=== PATIENT | female | born 1935 | race Caucasian/White ===

== ENCOUNTER 2017-03-12 12:10 | Inpatient (IN) | payer MEDICARE, MEDICAID ==
[2017-03-12 12:22] VITALS: BMI 23.2
[2017-03-12] MEDS ORDERED: Levalbuterol 0.63 MG/3 ML Inhal Soln UD IH STA (12:34)
--- NOTE | 2017-03-12 12:38 | ED PDOC ---
Arrival/HPI - General Historian: Patient, Family - History of Present Illness Time/Duration: > week (over 3 weeks. ) Symptom Onset: Gradual Symptom Course: Worsening Context: Home - General Chief Complaint: Shortness Of Breath Time Seen by Provider: 03/12/17 12:19 - History of Present Illness Narrative History of Present Illness (Text): 03/12/17 12:36 Patient is a 81 y/o with PMH of IDDM2, COPD, dilated cardiomyopathy, h/o pneumonia, large hiatal hernia, GERD presenting with over 3 weeks of cough productive with yellow, now dark sputum. Patient states she saw Dr Desouza 3 times since the symptoms started, and she was prescribed antibiotic twice, last antibiotic was last Sunday, doesn't remember the name. Patient last Sunday she was also giving solumedrol shot and prescription for po prednisone. Patient was admitted last year November with similar symptoms and was treated with pneumonia. Patient admits to subjective fever, chills. Patient reports SOB when she coughs. Patient denies cp, denies n/v/d. Admits to sick contact, daughter has similar symptoms. (Victorina Rodrigues) Past Medical History - Provider Review Nursing Documentation Reviewed: Yes - Travel History Have you recently traveled outside [place] w/in the past 3 mons?: No - Infectious Disease Hx of Infectious Diseases: None - Tetanus Immunization Tetanus Immunization: Unknown - Reproductive Menopause: Yes - Cardiac Hx Hypertension: Yes - Pulmonary Hx Asthma: Yes - Neurological HX Cerebrovascular Accident: Yes - HEENT Hx HEENT Disorder: No - Renal Hx Renal Disorder: No - Endocrine/Metabolic Hx Diabetes Mellitus Type 2: Yes - Hematological/Oncological Hx Anemia: Yes - Integumentary Hx Dermatological Disorder: No - Musculoskeletal/Rheumatological Hx Arthritis: Yes - Gastrointestinal Hx Gastroesophageal Reflux: Yes - Genitourinary/Gynecological Hx Urinary Tract Infection: Yes - Psychiatric Hx Anxiety: Yes Hx Substance Use: No - Surgical History Hx Cardiac Catheterization: Yes Hx Coronary Stent: Yes Other/Comment: herniated disks - - Anesthesia Hx Anesthesia: Yes Hx Anesthesia Reactions: No Hx Malignant Hyperthermia: No - Suicidal Assessment Feels Threatened In Home Enviroment: No Family/Social History - Physician Review Nursing Documentation Reviewed: Yes Family/Social History: Hypertension, CAD/MO Smoking Status: Never Smoked Hx Alcohol Use: No Hx Substance Use: No Allergies/Home Meds Allergies/Adverse Reactions: Allergies No Known Allergies Allergy (Verified 03/12/17 12:22) Home Medications: Home Meds Medication Instructions Recorded Confirmed Adalimumab [Humira] 40 mg SC Q2W 03/12/17 03/12/17 Alprazolam [Xanax] 0.5 mg PO HS 03/12/17 03/12/17 Clotrimazole 1% Cream [Lotrimin 1%] 1 applic TOP DAILY 03/12/17 03/12/17 Diclofenac Sodium [Voltaren] 100 gm TP TID PRN 03/12/17 03/12/17 Fluticasone/Vilanterol [Breo 1 unit INH Q12 03/12/17 03/12/17 Ellipta 100-25 Mcg INH] Furosemide [Lasix] 20 mg PO DAILY 03/12/17 03/12/17 Leflunomide [Arava] 20 mg PO DAILY 03/12/17 03/12/17 Levalbuterol Tartrate [Xopenex Hfa] 1 unit INH DAILY PRN 03/12/17 03/12/17 Levocetirizine Dihydrochloride 5 mg PO DAILY 03/12/17 03/12/17 [Xyzal] Metformin HCl [Glucophage] 500 mg PO DAILY 03/12/17 03/12/17 Mirtazapine [Remeron] 15 mg PO DAILY 03/12/17 03/12/17 Multivitamin [Multi-Vitamin Daily] 1 tab PO DAILY 03/12/17 03/12/17 Omeprazole 20 mg PO DAILY 03/12/17 03/12/17 Prasugrel Hydrochloride [Effient] 5 mg PO DAILY 03/12/17 03/12/17 Review of Systems - Review of Systems Constitutional: Fatigue, Fevers. absent: Night Sweats Eyes: Normal ENT: Normal Respiratory: SOB, Cough, Sputum. absent: Wheezing Cardiovascular: Normal Gastrointestinal: Normal Genitourinary Female: Normal Musculoskeletal: Normal Skin: Normal Neurological: Headache. absent: Dizziness, Focal Weakness Endocrine: Normal Hemo/Lymphatic: Normal Psychiatric: Normal Physical Exam Blood Pressure: Normal Pulse: Tachycardic Respiratory Rate: Normal Appearance: Positive for: Well-Appearing, Non-Toxic. No: Comfortable Pain Distress: None Mental Status: Positive for: Alert and Oriented X 3 - Systems Exam Head: Present: Atraumatic, Normocephalic Extroacular Muscles: Present: EOMI Conjunctiva: No: Icteric Mouth: Present: Dry Neck: Present: Normal Range of Motion Respiratory/Chest: Present: Rales (left base. ). No: Respiratory Distress, Accessory Muscle Use, Wheezes, Rhonchi, Tachypneic Cardiovascular: Present: Regular Rate and Rhythm, Normal S1, S2, Tachycardic. No: Murmurs Abdomen: Present: Normal Bowel Sounds. No: Tenderness, Distention Upper Extremity: Present: Normal Inspection. No: Cyanosis, Edema Lower Extremity: Present: Normal Inspection. No: Edema Neurological: Present: GCS=15 Skin: Present: Warm, Dry, Rashes, Normal Color Psychiatric: Present: Alert, Oriented x 3, Normal Insight, Normal Concentration Vital Signs Temp Pulse Resp BP Pulse Ox 03/12/17 16:09 78 18 98 03/12/17 16:00 98.5 F 89 20 125/77 95 03/12/17 15:33 98.1 F 78 16 118/72 94 L 03/12/17 12:30 16 93 L 03/12/17 12:23 91 H 18 115/64 93 L 03/12/17 12:22 91 H 18 115/64 93 L Medical Decision Making Re-evaluation Time: 14:10 Reassessment Condition: Re-examined, Improving,but remains with symptoms - Lab Interpretations I have reviewed the lab results: Yes (wbc 11.7) - RAD Interpretation Airplane Cover Maker: ED Physician - EKG Interpretation Interpreted by ED Physician: Yes Type: 12 lead EKG ED Course and Treatment: Patient seen and examined with resident. Came up with treatment and disposition plan with resident. (Romero Bo) 03/12/17 12:48 81 y/o with pmh of copd, dilated cardiomyopathy, h/o pneumonia, IDDM presenting with cough productive with dark sputum for weeks, failed outpatient treatment. Differentials: CHF exacerbation, copd exacerbation, HAP, gerd. Plan: CBC, CMP, BNP, Troponin, ABG chest x-ray , ekg xoponex inhal, solumedrol [address] Bo. 03/12/17 14:08 Patient feeling better after xoponex and solumedrol treatment Patient with left lower lobe infiltration, and wbc of 11.7. gave Rocephin and zithromax. 03/12/17 14:[address] Desouza on the phone regarding patient, will admit patient into his service. (Victorina Rodrigues) - Lab Interpretations Lab Results: 03/12/17 12:56 Lab Results 03/12/17 12:56: WBC 11.7 H D, RBC 2.76 L, Hgb 8.7 L, Hct 26.0 L, MCV 94.2, MCH 31.5, MCHC 33.5, RDW 14.1, Plt Count 253, MPV 9.3, Gran % 85.9 H, Lymph % (Auto ) 5.0 L, [place] % (Auto) 9.1 H, Eos % (Auto) 0.0 L, Baso % (Auto) 0.0, Gran # 10.05 H, Lymph # 0.6 L, [place] # 1.1 H, Eos # 0.0, Baso # 0.00 03/12/17 12:32: pCO2 28 L, pO2 118.0 H, HCO3 19.9 L, ABG pH 7.46 H, ABG Total CO2 20.8 L, ABG O2 Saturation 98.7 H, ABG Base Excess -2.6 L, ABG Potassium 3.2 L, Sodium 136.0, Chloride 109.0 H, Glucose 146 H, Lactate 1.6, FiO2 45.0, Arterial Blood Potassium 3.2 L - RAD Interpretation Narrative RAD Interpretations (Text): 03/12/17 14:12 Left lower lobe infiltration. (Victorina Rodrigues) Radiology Orders: 03/12/17 12:34 CHEST TWO VIEWS (PA/LAT) [RAD] Stat - EKG Interpretation EKG Interpretation (Text): 03/12/17 13:28 NSR at HR of 86 BMP, occasional PVCs. (Victorina Rodrigues) - Medication Orders Current Medication Orders: Albuterol/Ipratropium (Duoneb 3 Mg/0.5 Mg (3 Ml) Ud) 3 ml IH [id number] [facility] Last Admin: 03/13/17 07:36 Dose: 3 ml Alprazolam (Xanax) 0.5 mg PO HS [facility] PRN Reason: Protocol Last Admin: 03/12/17 22:07 Dose: 0.5 mg Re-Assess: Reassess Psych Meds Document 03/12/17 23:07 RR (Rec: 03/12/17 23:45 RR [id number]) Reassess Psych Med Effective Azithromycin (Zithromax) 500 mg PO DAILY [facility] PRN Reason: Protocol Clotrimazole (Lotrimin 1%) 0 gm TOP DAILY [facility] Guaifenesin/Dextromethorphan (Robitussin Dm) 5 ml PO Q6 [facility] Last Admin: 03/13/17 06:12 Dose: 5 ml Cefepime HCl (Maxipime 2gm) 2 gm in 100 mls @ 100 mls/hr IVPB Q12 [facility] PRN Reason: Protocol Stop: 03/20/17 10:01 Insulin Human Regular (Humulin R Low) 0 units SC ACHS [facility] PRN Reason: Protocol Last Admin: 03/12/17 22:07 Dose: 4 units Insulin Human Regular (Humulin R Med) 0 units SC ACHS [facility] PRN Reason: Protocol Methylprednisolone (Solu-Medrol) 30 mg IVP Q8 [facility] Last Admin: 03/13/17 06:12 Dose: 30 mg Mirtazapine (Remeron) 15 mg PO DAILY [facility] Multivitamins (Thera Tab) 1 tab PO DAILY [facility] Pantoprazole Sodium (Protonix Ec Tab) 40 mg PO ACB [facility] Prasugrel (Effient) 5 mg PO DAILY [facility] Discontinued Medications Azithromycin (Zithromax) 100 mg PO STAT STA PRN Reason: Protocol Stop: 03/12/17 14:11 Last Admin: 03/12/17 19:49 Dose: Ceftriaxone Sodium (Rocephin 1 Gram Ivpb) 1 gm in 100 mls @ 200 mls/hr IVPB STAT STA PRN Reason: Protocol Stop: 03/12/17 14:39 Last Admin: 03/12/17 15:51 Dose: 200 mls/hr Levalbuterol HCl (Xopenex) 0.63 mg IH ONCE STA Stop: 03/12/17 12:35 Last Admin: 03/12/17 13:00 Dose: 0.63 mg Methylprednisolone (Solu-Medrol) 40 mg IVP STAT STA Stop: 03/12/17 12:44 Last Admin: 03/12/17 13:09 Dose: 40 mg Pneumococcal Polyvalent Vaccine (Pneumovax 23 Vaccine) 0.5 ml IM .ONCE ONE Stop: 03/12/17 23:14 Curb-65 Severity Score - CURB-65 Severity Score Confusion: No Bun >19mg/dl (>7mmol/L): Yes Respiratory Rate greater than/equal to 30: No Systolic BP <90 or Diastolic BP less than/equal 60mmHg: No Age >64: Yes Curb-65 Score: 2 Percentage 30-day mortality: 6.8% Disposition/Present on Arrival - Present on Arrival Any Indicators Present on Arrival: No History of DVT/PE: No History of Uncontrolled Diabetes: No Urinary Catheter: No History of Decub. Ulcer: No History Surgical Site Infection Following: None - Disposition Have Diagnosis and Disposition been Completed?: Yes Disposition Time: 14:15 Patient Plan: Admission - Disposition Diagnosis: HAP (hospital-acquired pneumonia), CHF exacerbation Disposition: HOSPITALIZED Patient Problems: Current Active Problems Problem Status Onset CHF exacerbation Acute HAP (hospital-acquired pneumonia) Acute Condition: STABLE
[2017-03-12] MEDS ORDERED: MethylPREDNISolone 40 mg Vial IVP STA (12:43)
[2017-03-12 13:04] LABS: ADD MANUAL DIFF? NO
[2017-03-12 13:07] LABS: ARTERIAL BLOOD GAS HCO3 19.9 mmol/L (21-28); ARTERIAL BLOOD GAS PH 7.46 (7.35-7.45)
[2017-03-12 13:14] LABS: GRAN # 10.05 (1.4-6.5); GRAN % 85.9 % (50.0-68.0); LYMPH # 0.6 (1.2-3.4); MEAN CELL VOLUME 94.2 fL (80.0-105.0); MEAN CORPUSCULAR HEMOGLOBIN 31.5 pg (25.0-35.0); MEAN CORPUSCULAR HGB CONC 33.5 g/dl (31.0-37.0); MEAN PLATELET VOLUME 9.3 fl (7.0-11.0); MONO # 1.1 (0.1-0.6); MONO % 9.1 % (1.0-6.0); PLATELET COUNT 253 10^3/uL (120.0-450.0); RED CELL DISTRIBUTION WIDTH 14.1 % (11.5-14.5); WHITE BLOOD COUNT 11.7 10^3/ul (4.5-11.0)
[2017-03-12] MEDS ORDERED: Azithromycin 100 mg/5 ml Susp (15 ml) PO STA (14:10)
[2017-03-12] MEDS ORDERED: cefTRIAXone 1 gm 1 GM/100 ML BAG IVPB STA (14:10)
[2017-03-12 14:35] LABS: ALB/GLOB RATIO 0.8 (1.1-1.8); ALKALINE PHOSPHATASE 70 U/L (38-133); ALT/SGPT 22 U/L (7-56); AST/SGOT 28 U/L (15-39); BILIRUBIN,TOTAL 0.5 mg/dL (0.2-1.3); BLOOD UREA NITROGEN 62 mg/dL (7-21); CALCIUM 8.1 mg/dL (8.4-10.5); CARBON DIOXIDE 21 mmol/L (21-33); CHLORIDE 105 mmol/L (98-107); GFR AFRICAN-AMERICAN 52; GLUCOSE,RANDOM 132 mg/dL (70-110); POTASSIUM 3.6 mmol/L (3.6-5.0); SODIUM 133 mmol/L (132-148); TOTAL PROTEIN 6.7 g/dL (5.8-8.3)
[2017-03-12 14:47] LABS: TROPONIN I < 0.01 ng/mL
--- NOTE | 2017-03-12 18:47 | RAD ---
HISTORY: cough COMPARISON: Chest x-ray performed 12/14/15 TECHNIQUE: Chest PA and lateral FINDINGS: Examination limited by habitus and hypoinflation. LUNGS: Left lower lobe atelectasis or pneumonia. Please note that chest x-ray has limited sensitivity for the detection of pulmonary masses. PLEURA: No significant pleural effusion identified. No definite pneumothorax . CARDIOVASCULAR: Heart size appears within normal limits. OSSEOUS STRUCTURES: Osseous demineralization. Degenerative changes. VISUALIZED UPPER ABDOMEN: Unremarkable. OTHER FINDINGS: Probable hiatal hernia. IMPRESSION: Left lower lobe atelectasis or pneumonia.
[2017-03-12] MEDS: Albuterol-Ipratrop 3 mg / 0.5 (3 ml) UD IH SCH (19:35)
[2017-03-12] MEDS: MethylPREDNISolone 40 mg Vial IVP SCH (22:06)
[2017-03-12] MEDS: Insulin Reg-LOW-Coverage SC SCH (22:07)
[2017-03-12] MEDS ORDERED: Pneumococcal 23-Valent Vaccine IM ONE (23:13)
[2017-03-13] MEDS: Albuterol-Ipratrop 3 mg / 0.5 (3 ml) UD IH SCH ×4 (02:33→21:21)
[2017-03-13] MEDS: guaiFENesin DM 100 mg-10 mg/5 ml UD PO SCH ×5 (03:17→23:24)
[2017-03-13] MEDS: MethylPREDNISolone 40 mg Vial IVP SCH ×2 (06:12→22:12)
[2017-03-13 07:37] LABS: PH,URINE 5.5 (4.7-8.0); URINE BILIRUBIN NEGATIVE (NEGATIVE); URINE BLOOD NEGATIVE (NEGATIVE); URINE GLUCOSE (UA) NEGATIVE (NEGATIVE); URINE KETONE NEGATIVE (NEGATIVE); URINE LEUKOCYTE ESTERASE SMALL Leu/uL (NEGATIVE); URINE PROTEIN TRACE mg/dL (<30 mg/dL); URINE UROBILINOGEN 0.2 E.U./dL (<1 E.U./dL)
[2017-03-13 07:55] LABS: URINE APPEARANCE SL CLOUDY (CLEAR); URINE COLOR YELLOW (YELLOW)
[2017-03-13 07:56] LABS: URINE BACTERIA MOD (NEG); URINE RBC 0 - 2 /hpf (0-2)
[2017-03-13] MEDS ORDERED: Non Formulary Medication (Omeprazole [Omeprazole] 20 MG) PO SCH (10:00)
[2017-03-13] MEDS ORDERED: MULTIVITAMIN PO SCH (10:00)
[2017-03-13] MEDS ORDERED: cefTRIAXone 1 gm 1 GM/100 ML BAG IVPB SCH (10:00)
[2017-03-13] MEDS: Insulin Reg-LOW-Coverage SC SCH ×4 (11:30→22:07)
[2017-03-13] MEDS: Insulin Reg-MEDIUM-Coverage SC SCH ×3 (12:51→22:07)
[2017-03-13] MEDS: Multivitamin Therapeutic Tab PO SCH (13:00)
[2017-03-13] MEDS: Pantoprazole 40 mg EC Tab PO SCH (13:01)
--- NOTE | 2017-03-13 14:01 | HP ---
HISTORY OF PRESENT ILLNESS: A 81-year-old female with history of rheumatoid arthritis, dege nerative joint disease, peripheral vascular disease, CAD status post open heart surgery. The patient is status post stents and peripheral stents. The patient also has history of chronic lung disease. She has had outpatient cough and sputum production for the last 2 weeks progressing to increasing sh ortness of breath and low grade fevers and sputum production. The patient came to the hospital and w as found to have pneumonia. She also has chronic rhonchi and rales at both bases. Also has had a BN P of over 2000 consistent with mild congestive heart failure. Her vital signs are stable. She does have a hemoglobin of 8.7. She has been on biologicals for her ____, possibly contributing to her ane tenzin and immunosuppression. She also an elevated BUN and creatinine of 62 and 1.2. PHYSICAL EXAMINATION: GENERAL: On examination at this point, she is without complaints except for cough. She slept well. She has been tolerating her diet well. CHEST: Shows rhonchi and rales at both bases. ABDOMEN: Benign. EXTREMITIES: No cyanosis, clubbing, edema. NEUROLOGIC: Grossly intact. IMPRESSION: A 81-year-old female presenting with pneumonia, on immunosuppressive drugs; con gestive heart failure, acute renal insufficiency, possible dehydration and anemia of unknown origin. Juan Desouza MD cc: [id number] TT: 03/13/2017 14:01:08 sn
[2017-03-13] MEDS: Cefepime IV 2 gm in NS 2 GM/100 ML BAG IVPB SCH ×2 (15:09→22:06)
--- NOTE | 2017-03-13 15:26 | US ---
PROCEDURE: Ultrasound of the Kidneys HISTORY: arf COMPARISON: None available. TECHNIQUE: Sonogram of the kidneys. FINDINGS: RIGHT KIDNEY: Measures: 9.5 cm. Normal in size, contour and echogenicity. No stone, solid mass lesion or hydronephrosis visualized. LEFT KIDNEY: Measures: 8.3 cm. Normal in size, contour and echogenicity. No stone, solid mass lesion or hydronephrosis visualized. OTHER FINDINGS: None. IMPRESSION: Unremarkable renal sonogram.
--- NOTE | 2017-03-13 17:48 | CARD ---
APPROVED REPORT EKG Measurement Heart [id number] [id number] <Conclusion> Sinus rhythm with occasional premature ventricular complexes Otherwise normal ECG
--- NOTE | 2017-03-13 18:13 | US ---
PROCEDURE: Bilateral renal artery duplex ultrasound. CLINICAL HISTORY: Renal artery stenosis. Uncontrolled hypertension. Evaluate for renovascular hypertension. PHYSICIAN(S): Dominic Ingram M.D. TECHNIQUE: Duplex sonography with color-flow Doppler was used to evaluate the visualized segments of the main renal arteries. The patient was evaluated in a fasting state. Imaging in a supine and decubitus position was performed. Limited evaluation of the arcuate waveforms and resistive indices were performed. FINDINGS: Study is limited by tortuous vessels and the patient's inability to hold her breath. The kidneys are symmetric in size and location. Renal parenchyma is somewhat echogenic with prominent sinus fat. The right kidney measures 9.4cm in length and the left kidney measures 8.6cm in length. No solid renal masses, abnormal calcifications, or hydronephrosis is seen. The main right renal artery is visualized in segments from the aorta to the hilum.. The peak systolic velocity in the right main renal artery is 105 cm/sec. This is consistent with a 0 to 49% stenosis in the main right renal artery. The arcuate waveforms are normal. The resistive index is normal. The main left renal artery is also only visualized in segments from the aorta to the hilum.. The peak systolic velocity in the main left renal artery is 98cm/sec. This corresponds to a 0 to 49% stenosis in the main left renal artery. The arcuate waveforms and resistive indices are normal. IMPRESSION: 1. The main renal arteries are poorly visualized due to tortuosity and the patient's inability to hold her breath. If clinical suspicion for renal artery stenosis is high, additional imaging with CTA, MRA, or conventional arteriogram can be considered. 2. No sonographically significant stenosis is identified. 3. The kidneys are normal and symmetric in size. Renal parenchyma is somewhat echogenic with prominent sinus fat. There are no solid renal masses, abnormal calcifications or hydronephrosis noted.
--- NOTE | 2017-03-13 18:22 | CP.PCM.CON ---
History of Present Illness - History of Present Illness History of Present Illness: 81 year old female with COPD, DM, dilated cardiomyopathy, history of pneumonia, GERD, hiatal hernia, was sent to [facility] because of cough productive of yellowish phlegm over the past 2 weeks. She was seen by her PMD last week and was given unrecalled antibiotics. She was also given some steroids which made her feel better for a little while and then she started coughing again. She has mild shortness of breath on exertion, no fever or chills , on headache or dizziness, no chest pain, no sore throat, no rhinorrhea, no dysphagia, no abdominal pain, no diarrhea, no dysuria. In the ED, CXR showed left lower lobe atelectasis versus pneumonia. Infectious diseases consult is requested to further evaluate and manage. Review of Systems - Review of Systems All systems: reviewed and no additional remarkable complaints except (as per HPI ) Past Patient History - Infectious Disease Hx of Infectious Diseases: None - Tetanus Immunizations Tetanus Immunization: Unknown - Past Social History Smoking Status: Never Smoked - CARDIAC Hx Hypercholesterolemia: Yes Hx Hypertension: Yes Hx Peripheral Edema: Yes (right knee, +1 ble) - PULMONARY Hx Asthma: Yes Hx Pneumonia: Yes - NEUROLOGICAL HX Cerebrovascular Accident: Yes Hx Dizziness: Yes - HEENT Hx HEENT Problems: Yes (eyeglasses) - RENAL Hx Chronic Kidney Disease: No - ENDOCRINE/METABOLIC Hx Diabetes Mellitus Type 2: Yes - HEMATOLOGICAL/ONCOLOGICAL Hx Anemia: Yes - INTEGUMENTARY Hx Dermatological Problems: Yes Other/Comment: multiple skin discolorations ble - MUSCULOSKELETAL/RHEUMATOLOGICAL Hx Arthritis: Yes (hands) Hx Falls: Yes (past) Hx Herniated Disk: Yes () - GASTROINTESTINAL Hx Gastrointestinal Disorders: Yes (hiatal hernia) Hx Gastroesophageal Reflux: Yes - GENITOURINARY/GYNECOLOGICAL Hx Urinary Tract Infection: Yes - PSYCHIATRIC Hx Anxiety: Yes - SURGICAL HISTORY Hx Cardiac Catheterization: Yes Hx Coronary Stent: Yes Other/Comment: herniated disks - - ANESTHESIA Hx Anesthesia: Yes Hx Anesthesia Reactions: No Hx Malignant Hyperthermia: No Meds Allergies/Adverse Reactions: Allergies Allergy/AdvReac Type Severity Reaction Status Date / Time No Known Allergies Allergy Verified 03/12/17 12:22 - Medications Medications: Current Medications Albuterol/Ipratropium (Duoneb 3 Mg/0.5 Mg (3 Ml) Ud) 3 ml IH [id number] [facility] Last Admin: 03/13/17 02:33 Dose: 3 ml Alprazolam (Xanax) 0.5 mg PO HS ABNER PRN Reason: Protocol Last Admin: 03/12/17 22:07 Dose: 0.5 mg Azithromycin (Zithromax) 500 mg PO DAILY [facility]NER PRN Reason: Protocol Clotrimazole (Lotrimin 1%) 0 gm TOP DAILY [facility] Guaifenesin/Dextromethorphan (Robitussin Dm) 5 ml PO Q6 [facility] Last Admin: 03/13/17 03:17 Dose: Not Given Ceftriaxone Sodium (Rocephin 1 Gram Ivpb) 1 gm in 100 mls @ 100 mls/hr IVPB DAILY [facility] PRN Reason: Protocol Insulin Human Regular (Humulin R Low) 0 units SC ACHS [facility] PRN Reason: Protocol Last Admin: 03/12/17 22:07 Dose: 4 units Methylprednisolone (Solu-Medrol) 30 mg IVP Q8 [facility] Last Admin: 03/12/17 22:06 Dose: 30 mg Mirtazapine (Remeron) 15 mg PO DAILY [facility] Multivitamins (Thera Tab) 1 tab PO DAILY [facility] Pantoprazole Sodium (Protonix Ec Tab) 40 mg PO ACB [facility] Prasugrel (Effient) 5 mg PO DAILY [facility] Physical Exam - Constitutional Appears: Non-toxic, No Acute Distress - Head Exam Head Exam: NORMAL INSPECTION - ENT Exam ENT Exam: Mucous Membranes Moist - Neck Exam Neck exam: Negative for: Lymphadenopathy, Meningismus - Respiratory Exam Respiratory Exam: Decreased Breath Sounds - Cardiovascular Exam Cardiovascular Exam: +S1, +S2 - GI/Abdominal Exam GI & Abdominal Exam: Soft. absent: Tenderness Results - Vital Signs Recent Vital Signs: Last Vital Signs Temp 98.5 F 03/12/17 22:56 Pulse 89 03/12/17 22:56 Resp 20 03/12/17 22:56 BP 125/77 03/12/17 22:56 Pulse Ox 98 03/12/17 16:09 - Labs Result Diagrams: 03/12/17 12:56 03/12/17 14:23 Labs: Laboratory Results - last 24 hr 03/12/17 03/12/17 03/12/17 14:23 17:37 21:44 Sodium 133 Potassium 3.6 Chloride 105 Carbon Dioxide 21 Anion Gap 11 BUN 62 H Creatinine 1.2 Est GFR ( Amer) 52 Est GFR (Non-Af Amer) 43 POC Glucose (mg/dL) 269 H 421 H* Random Glucose 132 H Calcium 8.1 L Total Bilirubin 0.5 AST 28 ALT 22 Alkaline Phosphatase 70 Troponin I < 0.01 NT-Pro-B Natriuret Pep 2080 H Total Protein 6.7 Albumin 2.9 L Globulin 3.8 Albumin/Globulin Ratio 0.8 L Assessment & Plan - Assessment and Plan (Free Text) Plan: Assessment systemic inflammatory response syndrome, R/O healthcare-associated pneumonia ( patient has been given antibiotics last week) COPD DM dilated cardiomyopathy history of pneumonia GERD hiatal hernia Plan Started patient on Cefepime and Zithromax pending blood, sputum cx, PCT and monitor clinical response follow up Pulmonary evaluation and recommendations
--- NOTE | 2017-03-13 19:58 | CON ---
DATE: 03/13/2017 REQUESTING PHYSICIAN: Dr. Desouza. CHIEF COMPLAINT: The patient presents with shortness of breath and cough and chest congestion. HISTORY OF PRESENT ILLNESS: The patient is a 81-year-old female with a history of COPD/bronchitis, d iabetes, cardiomyopathy, hiatal hernia, GERD and anemia. The patient states that she has had a cough for about 2-3 weeks and it was treated with antibiotics and cough meds by the PMD, but it never comp letely resolved. She has a history of recurrent bronchitis for many years. The patient at this time has no fever or chills. No nausea, vomiting, but not much of an appetite. She has the cough with t he phlegm and the shortness of breath when she has the cough spasms. No chest pain, no abdominal ashwini n, no diarrhea. PAST MEDICAL HISTORY: As above. ALLERGIES: She has no known allergies. CURRENT MEDICATIONS: Can be evaluated as per the nurse's intake form. SOCIAL HISTORY: She is a former smoker. No EtOH abuse. No drug abuse. FAMILY HISTORY: Noncontributory. REVIEW OF SYSTEMS: CONSTITUTIONAL: The patient does have some fatigue, but no present fever. HEENT: Within normal limits. RESPIRATORY: Shortness of breath, cough, sputum. CARDIOVASCULAR: All normal. GASTROINTESTINAL: All normal. GENITOURINARY: All normal. MUSCULOSKELETAL: All normal. NEUROPSYCHIATRIC: All normal. INTEGRITY: All normal. ENDOCRINE: All normal. HEMATOLOGIC: All normal. IMMUNOLOGIC: All normal. PHYSICAL EXAMINATION: VITAL SIGNS: Note that her temperature is 97.9, her pulse is 77, respirations are 18, and BP is 136/ 74. O2 saturation is 96 on room air. HEAD: Atraumatic, normocephalic. EYES: Reactive to light. EARS, NOSE AND THROAT: Seem to be within normal limits. NECK: Supple, no JVD, no thyroid enlargement, no lymph nodes. HEART: Has a regular rate and rhythm. Normal S1, S2. LUNGS: Reveal bilateral lower lobe rhonchi, more so on the left than the right. No expiratory wheez ing. ABDOMEN: Soft, nontender, normal bowel sounds. No organomegaly noted. GENITALIA AND RECTAL: Deferred. MUSCULOSKELETAL: No joint deformities. EXTREMITIES: Reveal no edema. NEUROLOGIC: She seemed to be grossly intact. LABORATORY DATA: Her white count is 11.7, hemoglobin is 8.7, hematocrit 26.0 with platelets of 253,0 00. Arterial blood gas reveals a pH of 7.46, pCO2 of 28, pO2 of 118. Her sodium is 133, potassium 3 .6, chloride 105, CO2 of 21 with a BUN of 62, creatinine of 1.2, and a glucose of 296. Note that her BNP is 2080. IMAGING: Her chest x-ray reveals a left lower lobe pneumonia. IMPRESSION: This patient has left lower lobe pneumonia with exacerbation of her chronic obstructive pulmonary disease. There may be a mild component of congestive heart failure with increased BNP. Th e patient has a history of diabetes, cardiomyopathy, hiatal hernia, GERD as well as anemia. PLAN: We will continue with DuoNeb as a bronchodilator. The patient is getting cefepime as an IV an tibiotic and is on Protonix as well. She is getting Solu-Medrol 30 mg q. 8 and is on Zithromax as we ll. We will continue with aggressive pulmonary toilet, continue with the cough meds and O2 via nasal cannula p.r.n. and continue to treat aggressively along with the other consultants and the primary c are doctor. Parrish Huynh MD cc: [id number] TT: 03/13/2017 19:58:14 Confirmation # [id number] Dictation # [id number] mn
[2017-03-13] MEDS: Clotrimazole 1% Cream(30 gm) TOP SCH (22:11)
[2017-03-14] MEDS: Albuterol-Ipratrop 3 mg / 0.5 (3 ml) UD IH SCH ×4 (02:00→19:42)
[2017-03-14] MEDS: guaiFENesin DM 100 mg-10 mg/5 ml UD PO SCH ×3 (05:40→17:11)
[2017-03-14 07:34] LABS: HEMATOCRIT 25.2 % (36.0-48.0); MEAN CELL VOLUME 94.4 fL (80.0-105.0); MEAN CORPUSCULAR HEMOGLOBIN 30.7 pg (25.0-35.0); MEAN CORPUSCULAR HGB CONC 32.5 g/dl (31.0-37.0); MEAN PLATELET VOLUME 9.1 fl (7.0-11.0); RED CELL DISTRIBUTION WIDTH 14.3 % (11.5-14.5); WHITE BLOOD COUNT 9.1 10^3/ul (4.5-11.0)
[2017-03-14 08:16] LABS: ALB/GLOB RATIO 0.8 (1.1-1.8); BILIRUBIN,TOTAL 0.4 mg/dL (0.2-1.3); CALCIUM 8.3 mg/dL (8.4-10.5); POTASSIUM 3.8 mmol/L (3.6-5.0); TOTAL PROTEIN 6.2 g/dL (5.8-8.3)
[2017-03-14] MEDS: Insulin Reg-MEDIUM-Coverage SC SCH ×4 (08:28→22:14)
[2017-03-14] MEDS: Pantoprazole 40 mg EC Tab PO SCH (08:30)
[2017-03-14] MEDS ORDERED: DAPTOmycin 500 mg Inj (Cubicin) IV SCH (08:45)
--- NOTE | 2017-03-14 09:02 | PN ---
DATE: 03/14/2017 A 81-year-old female with history of rheumatoid arthritis, peripheral vascular disease, CAD, hypertension, presented with bilateral pneumonia. The patient is improving. Her lung curiel are cl earing. She still has some rales at the left base, but the right is clear today. She did have a singh al ultrasound and a renal artery Doppler because of elevated BUN and creatinine which showed slightly decreased size of the kidneys, some echogenic abnormalities, but with no renal artery stenosis. We will repeat CBC and CMP. Continue IV antibiotics and bronchodilators. Juan Desouza MD cc: [id number] TT: 03/14/2017 09:02:03 Confirmation # [id number] Dictation # [id number]
[2017-03-14] MEDS: Cefepime IV 2 gm in NS 2 GM/100 ML BAG IVPB SCH ×2 (09:16→22:16)
[2017-03-14] MEDS: MethylPREDNISolone 40 mg Vial IVP SCH ×2 (09:27→22:12)
[2017-03-14] MEDS: Multivitamin Therapeutic Tab PO SCH (09:27)
[2017-03-14] MEDS: Clotrimazole 1% Cream(30 gm) TOP SCH (10:46)
--- NOTE | 2017-03-14 11:51 | PQF CHF ---
This form is a permanent part of the medical record Clarification of your documentation is requested to better reflect the severity of illness and intensity of treatment of your patient. Indicators present Hx, CHF, BNP- 2079. Pul noted mild component of CHF. Please document type & severity of CHF POA. [x] Diagnosis of CHF and/or history of CHF [x] BNP > 200 [] Imaging Finding of Pulmonary Edema /Pleural Effusions [] Fluid/Volume Overload [] Pitting edema [] Ejection Fraction < 40% (Indicative of Systolic Heart Failure) [] Ejection Fraction > 40% (Indicative of Diastolic Heart Failure) [] Dyspnea / Orthopenea / Paroxysmal Nocturnal Dyspnea [] Other: Location in the medical record that reflects the above clinical findings: [x] H& P, Pul consult Treatment Provided: [] PHYSICIAN'S RESPONSE Based on your medical judgment of the clinical indicators outlined above, are you treating this patient for a known or suspected: [] Acute CHF [] Systolic [] Diastolic [] Combined x] Chronic CHF [] Systolic [] Diastolic [x] Combined [] Acute on Chronic CHF []Systolic [] Diastolic [] Combined [] CHF due hypertension [] Acute systolic []Chronic systolic [] Acute/ chronic systolic [] Other, please indicate: [] [] If Unable to Determine, please check the box, sign and date. Present On Admission (POA) Indicator: [x] Present at the time of admission [] Not present at the time of admission [] Clinically Undetermined In responding to this query, please exercise your independent professional judgment. The fact that a question is asked does not imply that any particular answer is desired or expected. Thank you for your clarification on this documentation. If you have any questions please call:[ ] [phone] * Thank you, [ ] Bindu Yung RN [employer] manager [employer]
--- NOTE | 2017-03-14 18:17 | CP.PCM.PN ---
Subjective - Date & Time of Evaluation Date of Evaluation: 03/14/17 Time of Evaluation: 10:45 - Subjective Subjective: Cough is better, no fevers overnight, breathing better. Objective - Vital Signs/Intake and Output Vital Signs (last 24 hours): Temp Pulse Resp BP Pulse Ox 98.4 F 80 18 143/84 96 03/13/17 16:00 03/13/17 16:00 03/13/17 16:00 03/13/17 16:00 03/13/17 16:00 Intake and Output: 03/14/17 03/14/17 06:59 18:59 Intake Total 540 Output Total 300 Balance 240 - Medications Medications: Current Medications Albuterol/Ipratropium (Duoneb 3 Mg/0.5 Mg (3 Ml) Ud) 3 ml IH [id number] ABNER Last Admin: 03/14/17 07:48 Dose: 3 ml Alprazolam (Xanax) 0.5 mg PO HS ABNER PRN Reason: Protocol Last Admin: 03/13/17 22:13 Dose: 0.5 mg Clotrimazole (Lotrimin 1%) 0 gm TOP DAILY ABNER Last Admin: 03/13/17 22:11 Dose: 1 applic Daptomycin (Cubicin) 310 mg 6 mg/kg (310 mg) IV Q24H ABNER PRN Reason: Protocol Stop: 03/19/17 08:46 Guaifenesin/Dextromethorphan (Robitussin Dm) 5 ml PO Q6 ABNER Last Admin: 03/14/17 05:40 Dose: 5 ml Cefepime HCl (Maxipime 2gm) 2 gm in 100 mls @ 100 mls/hr IVPB Q12 ABNER PRN Reason: Protocol Stop: 03/20/17 10:01 Last Admin: 03/13/17 22:06 Dose: 100 mls/hr Doxycycline Hyclate 100 mg/ (Sodium Chloride) 100 mls @ 100 mls/hr IVPB Q12 ABNER PRN Reason: Protocol Insulin Human Regular (Humulin R Med) 0 units SC ACHS ABNER PRN Reason: Protocol Last Admin: 03/14/17 08:28 Dose: 5 units Methylprednisolone (Solu-Medrol) 30 mg IVP Q12 ABNER Last Admin: 03/13/17 22:12 Dose: 30 mg Mirtazapine (Remeron) 15 mg PO DAILY [facility]NER Last Admin: 03/13/17 16:11 Dose: 15 mg Multivitamins (Thera Tab) 1 tab PO DAILY [facility] Last Admin: 03/13/17 13:00 Dose: 1 tab Pantoprazole Sodium (Protonix Ec Tab) 40 mg PO ACB [facility] Last Admin: 03/14/17 08:30 Dose: 40 mg Prasugrel (Effient) 5 mg PO DAILY [facility] Last Admin: 03/13/17 15:58 Dose: 5 mg - Labs Labs: 03/14/17 06:50 03/14/17 06:50 - Constitutional Appears: Non-toxic, No Acute Distress - Head Exam Head Exam: NORMAL INSPECTION - Neck Exam Neck Exam: absent: Meningismus - Respiratory Exam Respiratory Exam: Decreased Breath Sounds - Cardiovascular Exam Cardiovascular Exam: +S1, +S2 - GI/Abdominal Exam GI & Abdominal Exam: Soft. absent: Tenderness Assessment and Plan - Assessment and Plan (Free Text) Plan: Assessment sepsis due to Staph aureus bacteremia, source to be determined; patient has left lower lobe healthcare-associated pneumonia (patient has been given antibiotics last week) COPD DM dilated cardiomyopathy history of pneumonia GERD hiatal hernia Plan continue Cefepime and doxycycline day 2 and started Daptomycin pending sensitivities of the staph aureus in the blood; check repeat blood cx and 2D echo will continue to monitor clinically
[2017-03-15] MEDS: Albuterol-Ipratrop 3 mg / 0.5 (3 ml) UD IH SCH ×4 (02:25→21:05)
[2017-03-15] MEDS: guaiFENesin DM 100 mg-10 mg/5 ml UD PO SCH ×4 (06:09→17:58)
--- NOTE | 2017-03-15 08:49 | PN ---
DATE: 03/15/2017 The patient is a 81-year-old female with history of rheumatoid arthritis, peripheral vascula r disease, CAD, admitted to the hospital with pneumonia. Also was admitted with azotemia, BUN and cr eatinine at approximately 64 and 1.2 range, up to 68 and 1.4 today. Also, she is mildly anemic at 8. 2; she was 8.4. She had been on biologicals for her rheumatoid arthritis; they have been discontinue d. The patient has been hydrated. She is tolerating her antibiotics well. PHYSICAL EXAMINATION: VITAL SIGNS: Stable. LUNGS: She has less cough but she still has some rales at the left base, but the right lung is clear . We are looking for a serum protein electrophoresis to rule out myeloma because of the kidney deterior ation and the anemia. Ultrasound of the kidneys and renal artery Doppler or both within normal limit s. IMPRESSION: Pneumonia, anemia, acute renal insufficiency in a 81-year-old white female with a long h istory of rheumatoid arthritis and other comorbid medical issues. Juan Desouza MD cc: [phone] TT: 03/15/2017 08:48:21 Confirmation # [id number] Dictation # [id number] juan carlos
[2017-03-15] MEDS: Insulin Reg-MEDIUM-Coverage SC SCH ×4 (08:52→21:20)
[2017-03-15] MEDS: Pantoprazole 40 mg EC Tab PO SCH (08:53)
[2017-03-15] MEDS: MethylPREDNISolone 40 mg Vial IVP SCH ×2 (11:27→21:17)
[2017-03-15] MEDS: Cefepime IV 2 gm in NS 2 GM/100 ML BAG IVPB SCH (11:27)
[2017-03-15] MEDS: Multivitamin Therapeutic Tab PO SCH (11:27)
[2017-03-15] MEDS: Clotrimazole 1% Cream(30 gm) TOP SCH (11:28)
[2017-03-15 13:13] LABS: HEMATOCRIT 30.6 % (36.0-48.0); MEAN CELL VOLUME 95.9 fL (80.0-105.0); MEAN CORPUSCULAR HEMOGLOBIN 31.7 pg (25.0-35.0); MEAN PLATELET VOLUME 8.8 fl (7.0-11.0); RED CELL DISTRIBUTION WIDTH 14.5 % (11.5-14.5); WHITE BLOOD COUNT 11.9 10^3/ul (4.5-11.0)
[2017-03-15 13:20] LABS: ALB/GLOB RATIO 0.8 (1.1-1.8); BILIRUBIN,TOTAL 0.6 mg/dL (0.2-1.3); CALCIUM 9.2 mg/dL (8.4-10.5); POTASSIUM 3.7 mmol/L (3.6-5.0); TOTAL PROTEIN 7.3 g/dL (5.8-8.3)
--- NOTE | 2017-03-15 13:31 | PN ---
DATE: 03/15/2017 SUBJECTIVE: The patient is resting, sitting on the side of the bed with O2 via nasal cannula. No co mplaints of increased shortness of breath, cough, wheezing, chest congestion. No chest pain. No fev er, chills, nausea or vomiting. No abdominal pain or diarrhea. Family members are at bedside, state that the patient is doing much better from a respiratory standpoint. PHYSICAL EXAMINATION: VITAL SIGNS: Note that her temperature is 98.1, her pulse is 78, respirations are 18, and BP is 160 /84. SKIN: Warm and dry. HEAD: Atraumatic, normocephalic. EYES: Reactive to light. EARS, NOSE AND THROAT: Seem to be within normal limits. NECK: Supple. No JVD, no thyroid enlargement, no lymph nodes. HEART: Has a regular rate and rhythm, normal S1, S2. LUNGS: Reveal good breath sounds bilaterally. ABDOMEN: Soft, nontender. Normal bowel sounds. No organomegaly noted. GENITALIA AND RECTAL: Deferred. MUSCULOSKELETAL: No joint deformities. EXTREMITIES: Reveal no significant lower extremity edema. NEUROLOGIC: She seemed to be grossly intact. IMPRESSION: The patient has resolving left lower lobe pneumonia with a history of chronic obstructiv e pulmonary disease. The patient has also resolved congestive heart failure and a history of diabete s, cardiomyopathy, hiatal hernia, gastroesophageal reflux disease as well as anemia and some renal in sufficiency. PLAN: We will continue with DuoNeb and patient is getting IV antibiotic. She is getting aggressive pulmonary toilet, O2 support via nasal cannula on a p.r.n. basis. We will continue to treat xiang hinson along with the other consultants and the primary care doctor. Parrish Huynh MD cc: [id number] TT: 03/15/2017 13:30:53 Confirmation # [id number] Dictation # [id number] tn
--- NOTE | 2017-03-15 13:50 | CP.PCM.PN ---
Subjective - Date & Time of Evaluation Date of Evaluation: 03/15/17 Time of Evaluation: 12:00 - Subjective Subjective: Pt has very poor veins,needs iv access Objective - Vital Signs/Intake and Output Vital Signs (last 24 hours): Temp Pulse Resp BP Pulse Ox 98.1 F 78 18 160/84 H 97 03/15/17 08:59 03/15/17 08:59 03/15/17 08:59 03/15/17 08:59 03/15/17 08:59 Intake and Output: 03/15/17 03/15/17 06:59 18:59 Intake Total 1160 240 Output Total 600 Balance 560 240 - Medications Medications: Current Medications Albuterol/Ipratropium (Duoneb 3 Mg/0.5 Mg (3 Ml) Ud) 3 ml IH [id number] ABNER Last Admin: 03/15/17 08:33 Dose: 3 ml Alprazolam (Xanax) 0.5 mg PO HS ABNER PRN Reason: Protocol Last Admin: 03/14/17 22:11 Dose: 0.5 mg Alprazolam (Xanax) 0.5 mg PO TID PRN; Protocol PRN Reason: Anxiety Last Admin: 03/15/17 11:55 Dose: 0.5 mg Clotrimazole (Lotrimin 1%) 0 gm TOP DAILY ABNER Last Admin: 03/15/17 11:28 Dose: 1 applic Guaifenesin/Dextromethorphan (Robitussin Dm) 5 ml PO Q6 ABNER Last Admin: 03/15/17 11:27 Dose: 5 ml Cefepime HCl (Maxipime 2gm) 2 gm in 100 mls @ 100 mls/hr IVPB Q12 [facility]NER PRN Reason: Protocol Stop: 03/20/17 10:01 Last Admin: 03/15/17 11:27 Dose: 100 mls/hr Doxycycline Hyclate 100 mg/ (Sodium Chloride) 100 mls @ 100 mls/hr IVPB Q12 ABNER PRN Reason: Protocol Last Admin: 03/15/17 11:28 Dose: 100 mls/hr Daptomycin 310 mg/ Sodium (Chloride) 100 mls @ 200 mls/hr IV Q24H ABNER Stop: 03/19/17 08:46 Last Admin: 03/15/17 09:30 Dose: 200 mls/hr Insulin Human Regular (Humulin R Med) 0 units SC ACHS [facility] PRN Reason: Protocol Last Admin: 03/15/17 11:55 Dose: 7 units Methylprednisolone (Solu-Medrol) 30 mg IVP Q12 [facility] Last Admin: 03/15/17 11:27 Dose: 30 mg Mirtazapine (Remeron) 15 mg PO DAILY [facility] Last Admin: 03/15/17 11:27 Dose: 15 mg Multivitamins (Thera Tab) 1 tab PO DAILY [facility] Last Admin: 03/15/17 11:27 Dose: 1 tab Pantoprazole Sodium (Protonix Ec Tab) 40 mg PO ACB [facility] Last Admin: 03/15/17 08:53 Dose: 40 mg Prasugrel (Effient) 5 mg PO DAILY [facility] Last Admin: 03/15/17 11:27 Dose: 5 mg - Labs Labs: 03/15/17 12:45 03/15/17 12:45 - Constitutional Appears: No Acute Distress Assessment and Plan - Assessment and Plan (Free Text) Assessment: Poor venous access Plan: Hep lock inserted in the R hand. # 24 angiocath used. Note:Pt did not want me to insert a line in her neck.She may need a Picc line or TLC.
--- NOTE | 2017-03-15 15:18 | PN ---
DATE: 03/15/2017 The patient seen earlier today in room 372, bed 2. The patient is awake and doing well. No fevers, no chills, no nausea. PHYSICAL EXAMINATION: VITAL SIGNS: Temperature is 98, blood pressure is 150/80, respiratory rate of 18, heart rate of 87. HEENT: Unremarkable. NECK: Supple. LUNGS: Decreased breath sounds. HEART: Normal S1, S2. ABDOMEN: Soft, nontender. LABORATORY EXAMINATION: Reveals a white count of 11,900. Hemoglobin of 10, platelets of 265. Chemi stries reveal the BUN of 55, creatinine of 1.1. Urinalysis is noted. Urine for legionella antigen i s negative. Microbiology reveals the blood culture is positive for Staph aureus, is pansensitive. T he repeat blood cultures are negative from the . Echo results are pending. Dr. Desouza's note from yesterday is reviewed. Dr. Desouza's note from today is reviewed. Revie w of orders, patient is on daptomycin, IV doxycycline, IV cefepime and methylprednisolone, Solu-Medro l. ASSESSMENT AND PLAN: A 81-year-old female who was admitted with sepsis due to Staphylococcus aureus bacteremia, unknown source; left lower lobe healthcare-associated pneumonia, chronic obstructive lung disease, diabetes mellitus, dilated cardiomyopathy, history of pneumonia. Now with sensitive Staphy lococcus aureus bacteremia and on Solu-Medrol. Source of the Staphylococcus aureus bacteremia is unc lear. She has no foreign devices. She is diabetic and she is immunosuppressed. The patient's echo is pending. Will need at least 14 days of antibiotics. The patient's procalcitonin is normal. We w ill discontinue daptomycin, cefepime, and doxycycline. Since the sensitivity is available now, we wi ll use nafcillin pending echo results. We will also check on a sed rate and a C-reactive protein in addition to the echo. Dereje Wu MD cc: 350 TT: 03/15/2017 15:18:06 Confirmation # [id number] Dictation # [id number] sn
[2017-03-15] MEDS ORDERED: Lidocaine 2% Inj (20ml) ONE (16:13)
--- NOTE | 2017-03-15 18:53 | VASCULAR ---
PROCEDURE: Ultrasound and fluoroscopically placed left upper extremity PICC line. HISTORY: Pneumonia. Bacteremia. Long-term IV antibiotics. Needs PICC line. PHYSICIAN(S): Dominic Ingram MD. TECHNIQUE: The relative risks and indications of the procedure were explained to the patient and consent obtained. The patient was placed supine on the arteriogram table and the left arm prepped and draped in the usual sterile fashion. A tourniquet was applied to the left axilla. 1% Xylocaine was used to anesthetize the skin and soft tissues at the puncture site above the elbow. The left brachial vein was punctured under direct ultrasound guidance with a micropuncture set. A 0.018 guidewire was advanced centrally and used to measure the length to the SVC/RA junction. A 5 [place] single-lumen PICC line 41 cm long was advanced to the SVC/RA junction. The catheter was flushed and secured. The patient tolerated the procedure well. IMPRESSION: 1. Ultrasound and fluoroscopically placed left upper extremity PICC line. A 5 [place] single-lumen PICC line 41 cm long was advanced to the SVC/RA junction.
--- NOTE | 2017-03-15 21:25 | CARD ---
APPROVED REPORT EXAM: Two-dimensional and M-mode echocardiogram with Doppler and color Doppler. INDICATION Infection:Rule out subacute bacterial endocarditis 2D DIMENSIONS Left Atrium (2D)3.7 (1.6-4.0cm)IVSd1.0 (0.7-1.1cm) LVDd3.4 (3.9-5.9cm)PWd0.9 (0.7-1.1cm) LVDs2.7 (2.5-4.0cm)FS (%) 22.1 % LVEF (%)45.7 (>50%) M-Mode DIMENSIONS Aortic Root2.40 (2.2-3.7cm) Aortic Valve AoV Peak Xfzfatdb612.0cm/Aleshia Peak GR.16mmHg Mitral Valve E/A ratio0.0 TDI E/Lateral E'0.0E/Medial E'0.0 Tricuspid Valve TR Peak [id number] [id number] Peak Gr.48mmHg [id number] LEFT VENTRICLE The left ventricle is normal size. There is normal left ventricular wall thickness. The systolic function is mildly impaired. Transmitral Doppler flow pattern is Grade I-abnormal relaxation pattern. RIGHT VENTRICLE The right ventricle is normal size. There is normal right ventricular wall thickness. The right ventricular systolic function is normal. ATRIA The left atrium size is normal. The right atrium size is normal. AORTIC VALVE The aortic valve is moderately sclerotic, consider ENMA if clinically indicated There is trace valvular aortic stenosis. MITRAL VALVE The mitral valve is mildly thickened. There is no mitral valve regurgitation noted. TRICUSPID VALVE There is moderate tricuspid regurgitation. There is moderate pulmonary hypertension. PERICARDIAL EFFUSION There is a small loculated anterior pericardial effusion. <Conclusion> The left ventricle is normal size. There is normal left ventricular wall thickness. The systolic function is mildly impaired. Transmitral Doppler flow pattern is Grade I-abnormal relaxation pattern. The aortic valve is moderately sclerotic, consider ENMA if clinically indicated There is moderate tricuspid regurgitation. There is moderate pulmonary hypertension.
[2017-03-16] MEDS: guaiFENesin DM 100 mg-10 mg/5 ml UD PO SCH ×4 (00:01→17:09)
[2017-03-16] MEDS: Albuterol-Ipratrop 3 mg / 0.5 (3 ml) UD IH SCH ×4 (01:55→20:23)
[2017-03-16 05:13] LABS: TOTAL PROTEIN, SERUM 6.7 g/dL (6.1-8.1)
[2017-03-16] MEDS: Insulin Reg-MEDIUM-Coverage SC SCH ×4 (09:16→22:00)
[2017-03-16] MEDS: Pantoprazole 40 mg EC Tab PO SCH (09:16)
[2017-03-16] MEDS: MethylPREDNISolone 40 mg Vial IVP SCH ×2 (09:16→21:06)
[2017-03-16] MEDS: Multivitamin Therapeutic Tab PO SCH (09:16)
[2017-03-16] MEDS: Clotrimazole 1% Cream(30 gm) TOP SCH (09:22)
--- NOTE | 2017-03-16 10:11 | PN ---
DATE: 03/16/2017 A 81-year-old white female with history of immunosuppression from treatment of rheumatoid arthritis, CAD, peripheral vascular disease, ____ diabetes mellitus. The patient admitted to the hospital with pneumonia, was found on blood cultures to be positive for a sensitive Staph aureus. The patient has been on a regimen of antibiotics, now switched to nafcillin. Had a PICC line inserted. Needs at [facility] 14 days of antibiotics. The patient is doing well. Her lungs are clearing slowly. She has been afebrile. Vital signs are stable. She is tolerating her medications well. Plan is to continue elly tment and switch to outpatient treatment if possible. The patient is without complaints. PHYSICAL EXAMINATION: GENERAL: The patient is awake, alert, and oriented x 3. CHEST: Shows rales and rhonchi at the left base only. HEART: There is no murmur. The patient will be scheduled for a ENMA. Juan Desouza MD cc: [id number] TT: 03/16/2017 08:22:53 Confirmation # [id number] Dictation # [id number] juan carlos
--- NOTE | 2017-03-16 10:12 | PN ---
DATE: 03/16/2017 The patient is in bed in no acute distress, nontoxic. was seen earlier today, comfortable. PHYSICAL EXAMINATION: VITAL SIGNS: Temperature of 98, blood pressure is 160/80, respiratory rate of 18, heart rate of 78. HEENT: Unremarkable. NECK: Supple. LUNGS: Decreased breath sounds. HEART: Normal S1, S2. ABDOMEN: Soft, nontender. LABORATORY EXAMINATION: Reveals a white count of 11,900, platelets of 265. Chemistries reveal the B UN of 55, creatinine of 1.5. Urinalysis is noted. Urine for legionella antigen is negative. Microb iology reveals gram-positive cocci in the sputum. There is also a Staphylococcus aureus in the blood . It is pansensitive and repeat blood cultures are negative from 03/14. Review of orders reveals th e patient is currently on nafcillin. The sed rate from yesterday is 70. Review of orders reveal the C-reactive protein is pending. The patient had an echo yesterday which showed aortic valve is moder ately sclerotic, consider ENMA if clinically indicated as per Dr. Dominguez's note. Mitral valve is m ildly thickened. Dr. Dominic Ingram's procedure note for PICC line is noted. ASSESSMENT AND PLAN: A 81-year-old admitted with sepsis with a sensitive Staphylococcus aureus bacte remia, unknown etiology in a patient with chronic obstructive lung disease, diabetes mellitus, dilate d cardiomyopathy, history of pneumonia. The patient does not have any foreign devices. She is diabe tic and immunosuppressed. The echo result is nonspecific findings and the echo report recommends a t ransesophageal echocardiogram as per Dr. Dominguez. I do not feel this patient has endocarditis. Ho wever, she did have Staphylococcus aureus bacteremia, currently on nafcillin with a sed rate elevated . C-reactive protein is pending. Negative cultures from 03/14. Today is day #3 of 21 days of nafci llin. Would recommend a CBC, SMA-18, sed rate, C-reactive protein and we will follow closely with yo u. Dereje Wu MD cc: 350 TT: 03/16/2017 09:50:53 Confirmation # [id number] Dictation # [id number] tn
[2017-03-16] MEDS ORDERED: Insulin Reg-MEDIUM-Coverage ONE (12:36)
[2017-03-16] MEDS ORDERED: guaiFENesin DM 100 mg-10 mg/5 ml UD ONE (12:36)
[2017-03-16 13:59] LABS: BETA 1 GLOBULIN 0.3 g/dL (0.4-0.6); BETA 2 GLOBULIN 0.4 g/dL (0.2-0.5); GAMMA GLOBULIN 1.5 g/dL (0.8-1.7)
[2017-03-16] MEDS: VOLTAREN 1% TOP SCH (17:15)
[2017-03-17] MEDS: guaiFENesin DM 100 mg-10 mg/5 ml UD PO SCH ×5 (00:30→23:48)
[2017-03-17] MEDS: Albuterol-Ipratrop 3 mg / 0.5 (3 ml) UD IH SCH ×4 (01:09→20:06)
[2017-03-17] MEDS: Insulin Reg-MEDIUM-Coverage SC SCH ×4 (08:09→22:00)
[2017-03-17] MEDS: Pantoprazole 40 mg EC Tab PO SCH (08:10)
[2017-03-17] MEDS: Multivitamin Therapeutic Tab PO SCH (10:08)
[2017-03-17] MEDS: MethylPREDNISolone 40 mg Vial IVP SCH ×2 (10:09→21:26)
[2017-03-17] MEDS: Clotrimazole 1% Cream(30 gm) TOP SCH (10:09)
[2017-03-17] MEDS: VOLTAREN 1% TOP SCH ×4 (10:10→17:43)
--- NOTE | 2017-03-17 13:15 | PN ---
DATE: 03/17/2017 HISTORY OF PRESENT ILLNESS: This is a 81-year-old female admitted to the hospital with pneu monia and was found to have Staph aureus with sensitive positive blood cultures and a left lower lobe infiltrate. The patient is afebrile. Vital signs are stable. She also has a history of rheumatoid arthritis, elevated C-reactive protein, elevated sed rate. Recently taken off her immunosuppressiv e drugs because of the decrease in hemoglobin and increased BUN and creatinine and also the recurrent pneumonia. Case was discussed with Dr. Wu today. We will continue with nafcillin for exten ded period time. The patient received a PICC line. BUN and creatinine have decreased down to and 1.1. White count is normal, hemoglobin is up to 10.1. The patient is complaining of difficulty sleeping. We will add Seroquel at night. PHYSICAL EXAMINATION: VITAL SIGNS: Stable. Physical examination is unchanged. She still has rales at the left base. A repeat CT will be done and we will continue IV Nafcillin. Juan Desouza MD cc: [id number] TT: 03/17/2017 13:14:51 Confirmation # [id number] Dictation # [id number] don
--- NOTE | 2017-03-17 13:40 | CT ---
PROCEDURE: CT Chest without contrast HISTORY: pneumonia COMPARISON: 12/18/2015 TECHNIQUE: Contiguous axial images were obtained through the chest without intravenous contrast enhancement. Sagittal and coronal reconstructions were performed. Radiation dose (DLP): 239 mGy-cm. This CT exam was performed using one or more of the following dose reduction techniques: Automated exposure control, adjustment of the mA and/or kV according to patient size, and/or use of iterative reconstruction technique. FINDINGS: LUNGS: There is a cavitary lesion in the left upper lobe posteriorly measuring 13 mm in diameter. This is seen on image 36 series 4. The previous study showed multiple nodules and infiltrates which have since resolved. MEDIASTINUM: Unremarkable thoracic aorta. No aneurysm. Normal sized heart. Main pulmonary artery unremarkable. No vascular congestion. No lymphadenopathy. PLEURA: No pleural fluid. No pneumothorax. BONES: No fracture. No destructive lesion. UPPER ABDOMEN: There is a moderate size hiatal hernia. The esophagus is dilated. OTHER FINDINGS: None. IMPRESSION: Cavitary lesion in the left upper lobe posteriorly most likely infectious or inflammatory in etiology. Previously seen nodules and infiltrates have resolved.
--- NOTE | 2017-03-17 18:28 | PN ---
DATE: 03/17/2017 The patient is in bed in no acute distress. She is complaining of aches and pain. She is also compl aining of diarrhea. PHYSICAL EXAMINATION: VITAL SIGNS: Temperature is 97, blood pressure is 140/90, respiratory rate of 20, heart rate of 89. HEENT: Unremarkable. NECK: Supple. LUNGS: Have decreased breath sounds. HEART: Normal S1, S2. ABDOMEN: Soft, nontender. LABORATORY DATA: Reveals the patient's white count is 11,900, hemoglobin of 10, platelets of 265. C reatinine is 1.1. The patient's procalcitonin was 0.1. Urinalysis is noted and stool for occult is negative and urine for legionella antigen is negative. Microbiology reveals Staphylococcus aureus an d yeast in the sputum. The stool for C. diff antigen and toxin is negative. Repeat blood cultures a re negative. Review of the orders reveals the patient to be on nafcillin. The patient is also on Solu-Medrol. Th e patient had a CAT scan of the chest, which showed a cavitary lesion in the left upper lobe, most li kaylee infectious. Dr. Desouza's progress note is reviewed. ASSESSMENT AND PLAN: This is a 81-year-old admitted with sepsis with a sensitive Staphylococcus yusra us bacteremia and a Staphylococcus aureus cavitary left upper lobe lesion, pneumonia and currently on nafcillin day #4 of 21 days. Concern about cavitary lesion; should follow up with imaging with pulm onary and if no resolution of the lesion, will need further studies. Will also order Eileen's and G oodpasture's workup. The case was discussed with Dr. Desouza. Day #4 of 21 days. Difficult to fo llow Seed rate and C-reactive protein; suspicion has underlying rheumatological disease. The Staphyl ococcus aureus in the sputum is also oxacillin sensitive, same pattern and resistant pattern of blood with THALIA vancomycin 0.5. Dereje Wu MD cc: 350 TT: 03/17/2017 18:26:27 Confirmation # [id number] Dictation # [id number] dn
--- NOTE | 2017-03-17 18:55 | PN ---
DATE: 03/17/2017 SUBJECTIVE: The patient is resting, sitting on the side of the bed, eating her dinner and family is present. She has no complaints of shortness of breath, cough, wheezing, chest congestion. No fever or chills. No chest pain. No nauseousness or vomiting. The patient does have some slight abdominal discomfort at times and is having diarrhea. PHYSICAL EXAMINATION: VITAL SIGNS: Note that her temperature is 97, her pulse is 102, respirations are 20, and BP is 160/8 2. O2 saturation is 98 on room air. SKIN: Warm and dry. HEAD: Atraumatic, normocephalic. EYES: Reactive to light. EARS, NOSE AND THROAT: Seem to be within normal limits. NECK: Supple, no JVD, no thyroid enlargement, no lymph nodes. HEART: Has a regular rate and rhythm. Normal S1, S2. LUNGS: Reveal good breath sounds bilaterally. ABDOMEN: Soft, nontender. Decreased bowel sounds. GENITALIA AND RECTAL: Deferred. MUSCULOSKELETAL: No joint deformities. EXTREMITIES: Reveal no significant lower extremity edema. NEUROLOGIC: She seemed to be grossly intact. LABORATORY DATA: CT scan of the chest, it reveals that there is a cavitary lesion in the left upper lobe posteriorly, most likely infectious or inflammatory in etiology. Previously seen nodules and in filtrates have resolved. IMPRESSION: This patient has sepsis with Staphylococcus aureus bacteremia. She has a history of chr onic obstructive pulmonary disease, diabetes, dilated cardiomyopathy and pneumonia. It is noted that she has an upper lobe lung cavity as well. She also has a history of congestive heart failure and h iatal hernia with esophageal reflux and anemia as well as renal insufficiency. PLAN: The patient is on antibiotics. She is getting DuoNeb as a bronchodilator and aggressive pulmo nary toilet. We will follow closely and treat aggressively along with the other consultants and the primary care doctor. Parrish Huynh MD cc: [id number] TT: 03/17/2017 18:54:24 Confirmation # [id number] Dictation # [id number] don
[2017-03-18] MEDS: Albuterol-Ipratrop 3 mg / 0.5 (3 ml) UD IH SCH ×4 (02:45→20:18)
[2017-03-18] MEDS: guaiFENesin DM 100 mg-10 mg/5 ml UD PO SCH ×3 (05:29→17:52)
[2017-03-18] MEDS: Insulin Reg-MEDIUM-Coverage SC SCH ×4 (07:46→23:03)
[2017-03-18] MEDS: Pantoprazole 40 mg EC Tab PO SCH (07:46)
--- NOTE | 2017-03-18 08:34 | PN ---
DATE: 03/18/2017 A 81-year-old female admitted to the hospital with pneumonia, history of rheumatoid arthriti s, on biologicals. The patient was immunosuppressed. She grew Staphylococcus aureus methicillin sen sitive on blood culture. She is on nafcillin. Seen in consultation by Dr. Wu. A repeat CAT scan of the chest, which clearly had shown left lower lobe pneumonia, has resolved. However, the pa tiejillian does have a 50 mm left upper lobe cavitary lesion on CT, consistent with infectious etiology. VITAL SIGNS: The patient's blood pressure is 160/82, her temperature is 97. LABORATORY DATA: Unremarkable with a white count of 11.9, hemoglobin is 10.1. BUN and creatinine wright ve been elevated. They are apparently at 55 and 1.1. The patient is tolerating her diet well. Is complaining of some difficulty sleeping. Otherwise, she has no complaints of cough, sputum production, shortness of breath, etc. Vital signs are stable. PHYSICAL EXAMINATION: Unchanged. IMPRESSION: Blood culture positive for Staph methicillin sensitive resolving pneumonia, new cavitary lesion in the left upper lobe, history of rheumatoid arthritis, off immunosuppression at this point. Renal insufficiency with some resolution. Juan Desouza MD cc: [id number] TT: 03/18/2017 08:32:57 Confirmation # [id number] Dictation # [id number] sn
[2017-03-18] MEDS: Multivitamin Therapeutic Tab PO SCH (10:18)
[2017-03-18] MEDS: MethylPREDNISolone 40 mg Vial IVP SCH ×2 (10:18→23:05)
[2017-03-18] MEDS: VOLTAREN 1% TOP SCH ×3 (10:19→17:27)
[2017-03-18] MEDS: Clotrimazole 1% Cream(30 gm) TOP SCH (10:19)
[2017-03-18 11:06] LABS: ADD MANUAL DIFF? NO
[2017-03-18 11:09] LABS: BASO # 0.01 K/mm3 (0.0-2.0); BASO % 0.1 % (0.0-3.0); EOS # 0.1 (0.0-0.7); EOS % 0.6 % (1.5-5.0); GRAN # 11.53 (1.4-6.5); GRAN % 79.5 % (50.0-68.0); HEMATOCRIT 30.8 % (36.0-48.0); LYMPH # 2.1 (1.2-3.4); LYMPH % 14.3 % (22.0-35.0); MEAN CORPUSCULAR HEMOGLOBIN 31.2 pg (25.0-35.0); MEAN CORPUSCULAR HGB CONC 32.5 g/dl (31.0-37.0); MONO # 0.8 (0.1-0.6); MONO % 5.5 % (1.0-6.0); PLATELET COUNT 159 10^3/uL (120.0-450.0); RED CELL DISTRIBUTION WIDTH 14.9 % (11.5-14.5); WHITE BLOOD COUNT 14.5 10^3/ul (4.5-11.0)
[2017-03-18 11:25] LABS: ALB/GLOB RATIO 0.8 (1.1-1.8); ALKALINE PHOSPHATASE 63 U/L (38-133); ALT/SGPT 25 U/L (7-56); AST/SGOT 20 U/L (15-39); BILIRUBIN,TOTAL 0.7 mg/dL (0.2-1.3); BLOOD UREA NITROGEN 44 mg/dL (7-21); CARBON DIOXIDE 19 mmol/L (21-33); CHLORIDE 109 mmol/L (98-107); GFR AFRICAN-AMERICAN > 60; GLUCOSE,RANDOM 203 mg/dL (70-110); SODIUM 136 mmol/L (132-148); TOTAL PROTEIN 6.5 g/dL (5.8-8.3)
[2017-03-18 11:32] LABS: POTASSIUM 2.9 mmol/L (3.6-5.0)
[2017-03-18] MEDS ORDERED: Potassium Chloride 20 mEq ER Tab PO STA (11:48)
--- NOTE | 2017-03-18 13:17 | PN ---
DATE: 03/18/2017 The patient is in bed, in no acute distress, nontoxic. PHYSICAL EXAMINATION: VITAL SIGNS: Temperature is 99, blood pressure is 150/90, respiratory rate of 18, heart rate of 110. HEENT: Unremarkable. NECK: Supple. LUNGS: Have decreased breath sounds. HEART: Normal S1, S2. ABDOMEN: Soft, nontender. LABORATORY EXAMINATION: Reveals a white count of 14,500, hemoglobin of 10 and the sed rate is 70. C hemistries reveals the BUN of 44, creatinine of 1.0. Procalcitonin reveals 0.1. Urinalysis is noted . Microbiology reveals sputum with a Staphylococcus aureus and yeast. Repeat blood cultures are all negative. Review of orders reveals ANCA and Goodpasture workup pending, stool culture pending. The patient is currently on nafcillin. Dr. Desouza's note is reviewed. Dr. Huynh's note from yesterday is reviewed . CAT scan of the chest is also reviewed. ASSESSMENT AND PLAN: A 81-year-old admitted with sepsis with a sensitive Staphylococcus aureus bacte remia and Staphylococcus aureus cavitary left upper lobe lesion pneumonia, on nafcillin day #5 of 21 days. Concerned about a cavitary lesion and Brad's and Goodpasture workup in progress. Would comp lete 21 days and perhaps longer. Today is day #5 of 21 days of nafcillin. The patient is having una rrhea. Correct the potassium. Repeat imaging in 10-14 days. If the cavitary lesion imaging does no t improve, will need a bronchoscopy to determine the etiology of the cavitary lesion. Dereje Wu MD cc: [id number] TT: 03/18/2017 13:16:41 Confirmation # [id number] Dictation # [id number] en
--- NOTE | 2017-03-18 14:30 | PN ---
DATE: 03/18/2017 SUBJECTIVE: The patient is resting and no complaints of any shortness of breath. She is on room air . No chest pain, no cough, congestion or active fever or chills. She continues to have loose stool and frequent bowel movements, etiology unclear. PHYSICAL EXAMINATION: VITAL SIGNS: Temperature is 99.1, her pulse is 110, respirations are 17, and BP is 155/95. SKIN: Warm and dry. HEENT: Head is atraumatic, normocephalic. Eyes reactive to light. Ears, nose and throat seemed to be within normal limits. NECK: Supple. No JVD, no thyroid enlargement, no lymph nodes. HEART: Has a regular rate and rhythm. Normal S1, S2. LUNGS: Reveal mild decreased breath sounds at the bases. ABDOMEN: Soft, nontender, decreased bowel sounds. GENITALIA AND RECTAL: Deferred. MUSCULOSKELETAL: No joint deformities. EXTREMITIES: Reveal no edema. NEUROLOGIC: She seemed to be grossly intact. LABORATORIES: Her white count is 14.5, hemoglobin is 10.0, hematocrit 30.8 and platelets of 159,000. Sodium is 136, potassium 2.9, chloride 109, CO2 of 19, BUN of 44 with a creatinine of 1.0, and a gl ucose of 210. IMPRESSION: This patient has sepsis with Staphylococcus aureus bacteremia. She has a history of chr onic obstructive pulmonary disease, diabetes, dilated cardiomyopathy and pneumonia. She has an upper lobe lung cavity as well and has a history of congestive heart failure, hiatal hernia, esophageal re flux, anemia and renal insufficiency. The patient is also having loose stools, rule out infectious e tiology. PLAN: The patient is on antibiotics, DuoNeb for bronchodilatation and aggressive pulmonary toilet. I will continue to treat aggressively and follow closely. Parrish Huynh MD cc: [id number] TT: 03/18/2017 14:30:26 Confirmation # [id number] Dictation # [id number] en
[2017-03-18] MEDS: Potassium Chloride 20 mEq ER Tab PO SCH (17:52)
[2017-03-19] MEDS: guaiFENesin DM 100 mg-10 mg/5 ml UD PO SCH ×4 (00:57→17:18)
[2017-03-19] MEDS: Albuterol-Ipratrop 3 mg / 0.5 (3 ml) UD IH SCH (01:18)
[2017-03-19 06:12] LABS: ADD MANUAL DIFF? NO
[2017-03-19 06:17] LABS: BASO # 0.01 K/mm3 (0.0-2.0); BASO % 0.1 % (0.0-3.0); EOS % 0.3 % (1.5-5.0); GRAN # 9.36 (1.4-6.5); GRAN % 80.3 % (50.0-68.0); HEMATOCRIT 26.3 % (36.0-48.0); LYMPH # 1.8 (1.2-3.4); LYMPH % 15.4 % (22.0-35.0); MEAN CORPUSCULAR HGB CONC 32.3 g/dl (31.0-37.0); MEAN PLATELET VOLUME 9.3 fl (7.0-11.0); MONO # 0.5 (0.1-0.6); MONO % 3.9 % (1.0-6.0); PLATELET COUNT 133 10^3/uL (120.0-450.0); RED CELL DISTRIBUTION WIDTH 15.1 % (11.5-14.5); WHITE BLOOD COUNT 11.7 10^3/ul (4.5-11.0)
[2017-03-19 06:25] LABS: ALB/GLOB RATIO 0.7 (1.1-1.8); ALKALINE PHOSPHATASE 52 U/L (38-133); ALT/SGPT 22 U/L (7-56); AST/SGOT 23 U/L (15-39); BILIRUBIN,TOTAL 0.7 mg/dL (0.2-1.3); BLOOD UREA NITROGEN 40 mg/dL (7-21); CALCIUM 7.8 mg/dL (8.4-10.5); CARBON DIOXIDE 19 mmol/L (21-33); CHLORIDE 112 mmol/L (98-107); GFR AFRICAN-AMERICAN > 60; GLUCOSE,RANDOM 199 mg/dL (70-110); MAGNESIUM 1.7 mg/dL (1.7-2.2); POTASSIUM 3.7 mmol/L (3.6-5.0); SODIUM 136 mmol/L (132-148); TOTAL PROTEIN 5.6 g/dL (5.8-8.3)
[2017-03-19] MEDS: Pantoprazole 40 mg EC Tab PO SCH (08:14)
[2017-03-19] MEDS: Insulin Reg-MEDIUM-Coverage SC SCH ×4 (08:14→21:42)
--- NOTE | 2017-03-19 09:43 | PN ---
DATE: 03/19/2017 A 81-year-old female with rheumatoid arthritis, peripheral vascular disease, CAD. Admitted to the hospital with pneumonia. Was found to have blood cultures positives for Staph aureus methicil yesika sensitive. The patient is on day 5 of nafcillin of 21 days. The patient's repeat CT showed reso lution of pneumonia, but there was a small area of cavitary nodule in the left upper lobe. The patie nt is afebrile. Vital signs are stable. She did have a drop in her hemoglobin down to 8.5, which has occurred in the past, possibly secondary to being taken from the PICC line. This will be repeated from her peripheral site. The patient's w cj count is 11.7. Her BUN and creatinine have improved now to 40 and 1.0. PHYSICAL EXAMINATION: VITAL SIGNS: Temperature is 99.4, heart rate is slightly elevated, and blood pressure is 160/99. LUNGS: The patient, on examination, shows some rales and rhonchi bilaterally. She also will have a repeat BNP. We will give an extra dose of Lasix today because of the increase i n heart rate and increased shortness of breath and the notation of rales. She has had a BNP of over 2000 on admission. IMPRESSION: Possible worsening congestive heart failure, resolution of her previously described pneu monia, treatment of Staphylococcus aureus, possible new cavitary lesion, rule out other infectious et iology, and better controlled diabetes. Juan Desouza MD cc: [id number] TT: 03/19/2017 09:43:23 Confirmation # [id number] Dictation # [id number] mn
[2017-03-19] MEDS: Multivitamin Therapeutic Tab PO SCH (10:13)
[2017-03-19] MEDS: Potassium Chloride 20 mEq ER Tab PO SCH ×2 (10:13→17:18)
[2017-03-19] MEDS: VOLTAREN 1% TOP SCH ×3 (10:20→18:58)
[2017-03-19] MEDS: Clotrimazole 1% Cream(30 gm) TOP SCH (10:21)
[2017-03-19] MEDS ORDERED: Nitroglycerin 2% Ointment Foilpak UD TOP STA (11:36)
[2017-03-19] MEDS ORDERED: Metoprolol 1 mg/ml Inj IVP ONE (11:36)
[2017-03-19 11:44] LABS: TROPONIN I 0.06 ng/mL
[2017-03-19 13:03] LABS: FREE T4 1.29 ng/dL (0.78-2.19)
[2017-03-19 13:17] LABS: THYROID STIMULATING HORMONE 2.76 mIU/mL (0.46-4.68)
--- NOTE | 2017-03-19 16:37 | CP.PCM.PN ---
Subjective - Date & Time of Evaluation Date of Evaluation: 03/19/17 Time of Evaluation: 12:00 - Subjective Subjective: called by nurse to see pt with tachycardia. and BP is elevated. pt denies cp , sob no fever chill .pt was given Lopressor 5 mg x1. Objective - Vital Signs/Intake and Output Vital Signs (last 24 hours): Temp Pulse Resp BP Pulse Ox 99.4 F 111 H 20 157/92 H 98 03/19/17 08:28 03/19/17 13:55 03/19/17 08:28 03/19/17 13:55 03/19/17 08:28 Intake and Output: 03/19/17 03/19/17 06:59 18:59 Intake Total 420 1260 Output Total 200 1805 Balance 220 -545 - Medications Medications: Current Medications Alprazolam (Xanax) 0.5 mg PO HS [facility] PRN Reason: Protocol Last Admin: 03/18/17 23:04 Dose: 0.5 mg Alprazolam (Xanax) 0.5 mg PO TID PRN; Protocol PRN Reason: Anxiety Last Admin: 03/19/17 08:17 Dose: 0.5 mg Clotrimazole (Lotrimin 1%) 0 gm TOP DAILY [facility] Last Admin: 03/19/17 10:21 Dose: 1 applic Guaifenesin/Dextromethorphan (Robitussin Dm) 5 ml PO Q6 [facility] Last Admin: 03/19/17 12:44 Dose: 5 ml Home Med (Home Med) 1 unit TOP TID [facility] Last Admin: 03/19/17 15:15 Dose: Not Given Meropenem 1g/NS 100mL IVPB (Meropenem 1g/Ns 100ml Ivpb) 1 gm in 100 mls @ 100 mls/hr IVPB Q8 [facility] PRN Reason: Protocol Stop: 03/28/17 22:01 Vancomycin HCl (Vancomycin 750 Mg In Ns) 750 mg in 250 mls @ 167 mls/hr IVPB Q12H [facility] PRN Reason: Protocol Stop: 03/28/17 16:16 Insulin Human Regular (Humulin R Med) 0 units SC ACHS [facility] PRN Reason: Protocol Last Admin: 03/19/17 12:35 Dose: 3 units Metoprolol Succinate (Toprol Xl) 25 mg PO BRK [facility] Mirtazapine (Remeron) 15 mg PO DAILY [facility] Last Admin: 03/19/17 10:13 Dose: 15 mg Multivitamins (Thera Tab) 1 tab PO DAILY [facility] Last Admin: 03/19/17 10:13 Dose: 1 tab Pantoprazole Sodium (Protonix Ec Tab) 40 mg PO ACB [facility] Last Admin: 03/19/17 08:14 Dose: 40 mg Potassium Chloride (K-Dur 20 Meq Er Tab) 20 meq PO BID [facility] Last Admin: 03/19/17 10:13 Dose: 20 meq Prasugrel (Effient) 5 mg PO DAILY [facility] Last Admin: 03/19/17 10:14 Dose: 5 mg Prednisone (Prednisone Tab) 5 mg PO DAILY [facility] Last Admin: 03/19/17 10:13 Dose: 5 mg Quetiapine Fumarate (Seroquel) 100 mg PO [facility] PRN Reason: Protocol Last Admin: 03/18/17 23:03 Dose: 100 mg Ramipril (Altace) 5 mg PO DAILY [facility] - Labs Labs: 03/19/17 11:18 03/19/17 06:00 - Constitutional Appears: No Acute Distress - Head Exam Head Exam: NORMOCEPHALIC - Eye Exam Eye Exam: Normal appearance Pupil Exam: PERRL - ENT Exam ENT Exam: Mucous Membranes Moist - Neck Exam Neck Exam: Full ROM - Respiratory Exam Respiratory Exam: Rales, NORMAL BREATHING PATTERN Additional comments: pt has rhonchi left lung area. - Cardiovascular Exam Cardiovascular Exam: Tachycardia, RRR, +S1, +S2 - GI/Abdominal Exam GI & Abdominal Exam: Soft, Normal Bowel Sounds - Rectal Exam Rectal Exam: Deferred - Extremities Exam Extremities Exam: Full ROM - Neurological Exam Neurological Exam: Alert, Awake, CN II-XII Intact, Oriented x3 - Psychiatric Exam Psychiatric exam: Normal Affect - Skin Skin Exam: Dry, Warm Assessment and Plan - Assessment and Plan (Free Text) Assessment: sinus tachy cardia. Plan: pt, hr and Bp and HR improved after the lopressor.
--- NOTE | 2017-03-19 16:44 | CARD ---
APPROVED REPORT EKG Measurement Heart [id number] <Conclusion> Sinus tachycardia.
--- NOTE | 2017-03-19 17:32 | PN ---
DATE: 03/19/2017 The patient seen in room 374, bed 2. SUBJECTIVE: The patient is comfortable. He still has some diarrhea, had low grade fevers. He had a n episode of hypertension and tachycardia earlier. PHYSICAL EXAMINATION: VITAL SIGNS: Temperature is 99, heart rate of 140, respiratory rate of 20 and blood pressure is 160/ 99. HEENT: Unremarkable. NECK: Supple. LUNGS: Have decreased breath sounds. HEART: Normal S1, S2. ABDOMEN: Soft, nontender. LABORATORY DATA: Reveals a hemoglobin of 8.5, white count of 11,700, platelets of 133, sed rate is 7 0. Chemistries are noted. BUN of 40, creatinine of 1.0. Procalcitonin is noted at 0.1. Urinalysis is noted. Immunology is noted. Microbiology reveals sputum with Staphylococcus. Dr. Desouza's n ote is reviewed. Review of the orders reveals the patient to be on nafcillin. The patient is on pre dnisone, Xanax, Toprol, Seroquel. ASSESSMENT AND PLAN: This is a 81-year-old female who was admitted with sensitive Staphylococcus aur eus bacteremia with Staphylococcus aureus cavitary left upper lobe pneumonia, day #6 of 21 days, now has new tachycardia and hypertension, etiology of which is not clear. We will discontinue the nafcil yesika, repeat blood cultures, urine cultures, urinalysis, sputum cultures and order Dopplers of lower e xtremities to rule out DVT and we will order a D-dimer and procalcitonin and a chest x-ray and discon tinue the nafcillin and start vancomycin, meropenem pending initial workup results. Dereje Wu MD cc: [id number] TT: 03/19/2017 17:31:46 Confirmation # [id number] Dictation # [id number] mn
[2017-03-19] MEDS: Vancomycin 750mg 750 MG/250 ML BAG IVPB SCH (18:51)
--- NOTE | 2017-03-19 19:45 | PN ---
DATE: 03/19/2017 SUBJECTIVE: The patient is resting in bed. No complaints of shortness of breath, cough, wheezing, c hest congestion. No chest pain. No fever, chills, or nausea or vomiting but she has had some abdomi nal discomfort and diarrhea. The patient has decreased p.o. intake as well. She had an episode of t achycardia and hypertension today and was given Lopressor, which resolved the problem. The patient i s comfortable on room air and family is at bedside. PHYSICAL EXAMINATION: VITAL SIGNS: Note that her temperature is 98.8, her pulse is 110, respirations are 20 and BP is 126/ 77. SKIN: Warm and dry. HEENT: Head is atraumatic, normocephalic. Eyes reactive to light. Ears, nose and throat seem to be within normal limits. NECK: Supple. No JVD, no thyroid enlargement, no lymph nodes. HEART: Has a regular rate and rhythm. Normal S1, S2. LUNGS: Reveal rare rhonchi at the bases. ABDOMEN: Soft, nontender. Normal bowel sounds. GENITALIA AND RECTAL: Deferred. MUSCULOSKELETAL: No joint deformities. EXTREMITIES: Reveal trace lower extremity edema. NEUROLOGIC: She seemed to be grossly intact. LABORATORY DATA: Her hemoglobin is 9.5 and her glucose is 219. IMPRESSION: This patient continues to have diarrhea, etiology unclear, and had an episode of sinus t achycardia today. She has staphylococcus bacteremia, chronic obstructive pulmonary disease, diabetes , dilated cardiomyopathy and pneumonia. The patient has an upper lobe lung cavity with a history of congestive heart failure, hiatal hernia, esophageal reflux, anemia, renal insufficiency. PLAN: We will continue with antibiotics as per ID. The patient is getting DuoNeb and aggressive pul monary toilet. We will follow her chest x-ray closely and she has been given Lasix for appropriate d iuresis. We will continue to treat aggressively along with the other consultants and the primary car e doctor. Parrish Huynh MD cc: [id number] TT: 03/19/2017 19:44:50 Confirmation # [id number] Dictation # [id number]
--- NOTE | 2017-03-19 20:37 | US ---
HISTORY: Leg pain and swelling. Evaluate for DVT PHYSICIAN(S): Dominic Ingram MD. TECHNIQUE: Duplex sonography and color-flow Doppler with graded compression were used to evaluate the deep venous systems of both lower extremities. FINDINGS: The visualized deep venous systems of both lower extremities are sonographically normal and compressible. Normal wave forms and augmentation are seen. There is no sonographic evidence for deep venous thrombosis in the visualized segments of both lower extremities. IMPRESSION: No sonographic evidence for deep venous thrombosis in the visualized segments of both lower extremities.
[2017-03-19] MEDS: Meropenem 1g/NS 100mL IVPB 1 GM/100 ML PIGGYBACK IVPB SCH (21:43)
[2017-03-19 22:06] LABS: TROPONIN I 0.05 ng/mL
[2017-03-20] MEDS: Vancomycin 750mg 750 MG/250 ML BAG IVPB SCH ×2 (04:24→16:35)
--- NOTE | 2017-03-20 04:48 | CP.PCM.PN ---
Subjective - Date & Time of Evaluation Date of Evaluation: 03/20/17 Time of Evaluation: 04:45 - Subjective Subjective: S:Patient was seen at bedside because nurse had called and told that BP is 166/ 98. Patient has complaint of sore throat. No other complaints. Denies headache, nausea, chest pain, sob, dizziness. Pertinent medical record was reviewed. O: Last Vital Signs 3 Temp 98.8 F 03/19/17 16:07 Pulse 111 H 03/20/17 05:14 Resp 20 03/19/17 22:00 BP 166/98 H 03/20/17 05:14 Pulse Ox 99 03/20/17 04:42 Awake, alert, not in distress. HEENT:Throat -clear. LUNGS: Normal breathing pattern. A/P Elevated blood pressure. Sore throat. Lopressor xl 25 now instead of at 8am. Cepacol lozenges ad ordered. Objective - Vital Signs/Intake and Output Vital Signs (last 24 hours): Temp Pulse Resp BP Pulse Ox 98.8 F 117 H 20 158/103 H 99 03/19/17 16:07 03/20/17 04:42 03/19/17 22:00 03/20/17 04:42 03/20/17 04:42 Intake and Output: 03/19/17 03/20/17 18:59 06:59 Intake Total 1260 360 Output Total 1805 200 Balance -545 160 - Medications Medications: Current Medications Alprazolam (Xanax) 0.5 mg PO HS [facility] PRN Reason: Protocol Last Admin: 03/19/17 21:44 Dose: 0.5 mg Alprazolam (Xanax) 0.5 mg PO TID PRN; Protocol PRN Reason: Anxiety Last Admin: 03/19/17 08:17 Dose: 0.5 mg Clotrimazole (Lotrimin 1%) 0 gm TOP DAILY [facility] Last Admin: 03/19/17 10:21 Dose: 1 applic Guaifenesin/Dextromethorphan (Robitussin Dm) 5 ml PO Q6 [facility] Last Admin: 03/20/17 00:00 Dose: Not Given Home Med (Home Med) 1 unit TOP TID [facility] Last Admin: 03/19/17 18:58 Dose: Not Given Meropenem 1g/NS 100mL IVPB (Meropenem 1g/Ns 100ml Ivpb) 1 gm in 100 mls @ 100 mls/hr IVPB Q8 [facility] PRN Reason: Protocol Stop: 03/28/17 22:01 Last Admin: 03/19/17 21:43 Dose: 100 mls/hr Vancomycin HCl (Vancomycin 750 Mg In Ns) 750 mg in 250 mls @ 167 mls/hr IVPB Q12H [facility] PRN Reason: Protocol Stop: 03/28/17 16:16 Last Admin: 03/20/17 04:24 Dose: 167 mls/hr Insulin Human Regular (Humulin R Med) 0 units SC ACHS [facility] PRN Reason: Protocol Last Admin: 03/19/17 21:42 Dose: Not Given Metoprolol Succinate (Toprol Xl) 25 mg PO BRK [facility] Mirtazapine (Remeron) 15 mg PO DAILY [facility] Last Admin: 03/19/17 10:13 Dose: 15 mg Multivitamins (Thera Tab) 1 tab PO DAILY [facility] Last Admin: 03/19/17 10:13 Dose: 1 tab Pantoprazole Sodium (Protonix Inj) 40 mg IVP DAILY [facility] Potassium Chloride (K-Dur 20 Meq Er Tab) 20 meq PO BID [facility] Last Admin: 03/19/17 17:18 Dose: 20 meq Prasugrel (Effient) 5 mg PO DAILY [facility] Last Admin: 03/19/17 10:14 Dose: 5 mg Prednisone (Prednisone Tab) 5 mg PO DAILY [facility] Last Admin: 03/19/17 10:13 Dose: 5 mg Quetiapine Fumarate (Seroquel) 100 mg PO HS [facility] PRN Reason: Protocol Last Admin: 03/19/17 21:43 Dose: 100 mg Ramipril (Altace) 5 mg PO DAILY [facility] - Labs Labs: 03/19/17 11:18 03/19/17 06:00
[2017-03-20] MEDS ORDERED: Benzocaine/Menthol (Cepacol) Lozenge MT PRN (05:00)
[2017-03-20] MEDS: Metoprolol Succinate 25 mg XL Tab PO SCH ×2 (05:14→08:28)
[2017-03-20] MEDS: guaiFENesin DM 100 mg-10 mg/5 ml UD PO SCH ×4 (05:15→17:04)
[2017-03-20] MEDS: Meropenem 1g/NS 100mL IVPB 1 GM/100 ML PIGGYBACK IVPB SCH ×3 (05:15→21:53)
[2017-03-20 07:45] LABS: ADD MANUAL DIFF? NO
[2017-03-20 07:49] LABS: BASO # 0.01 K/mm3 (0.0-2.0); BASO % 0.1 % (0.0-3.0); EOS # 0.1 (0.0-0.7); EOS % 0.9 % (1.5-5.0); GRAN # 9.67 (1.4-6.5); GRAN % 75.3 % (50.0-68.0); HEMATOCRIT 25.1 % (36.0-48.0); LYMPH # 2.5 (1.2-3.4); LYMPH % 19.3 % (22.0-35.0); MEAN CELL VOLUME 95.4 fL (80.0-105.0); MEAN CORPUSCULAR HEMOGLOBIN 30.8 pg (25.0-35.0); MEAN CORPUSCULAR HGB CONC 32.3 g/dl (31.0-37.0); MEAN PLATELET VOLUME 9.5 fl (7.0-11.0); MONO # 0.6 (0.1-0.6); MONO % 4.4 % (1.0-6.0); PLATELET COUNT 117 10^3/uL (120.0-450.0); RED CELL DISTRIBUTION WIDTH 15.1 % (11.5-14.5); WHITE BLOOD COUNT 12.8 10^3/ul (4.5-11.0)
[2017-03-20 08:01] LABS: ALB/GLOB RATIO 0.7 (1.1-1.8); ALKALINE PHOSPHATASE 53 U/L (38-133); ALT/SGPT 26 U/L (7-56); AST/SGOT 22 U/L (15-39); BILIRUBIN,TOTAL 0.5 mg/dL (0.2-1.3); BLOOD UREA NITROGEN 29 mg/dL (7-21); CALCIUM 7.8 mg/dL (8.4-10.5); CARBON DIOXIDE 19 mmol/L (21-33); CHLORIDE 114 mmol/L (98-107); GFR AFRICAN-AMERICAN > 60; GLUCOSE,RANDOM 91 mg/dL (70-110); POTASSIUM 3.4 mmol/L (3.6-5.0); SODIUM 138 mmol/L (132-148); TOTAL PROTEIN 5.6 g/dL (5.8-8.3)
[2017-03-20 08:08] LABS: TROPONIN I 0.06 ng/mL
[2017-03-20] MEDS: Insulin Reg-MEDIUM-Coverage SC SCH ×4 (08:30→22:49)
[2017-03-20] MEDS: Potassium Chloride 20 mEq ER Tab PO SCH ×2 (09:43→17:04)
[2017-03-20] MEDS: Multivitamin Therapeutic Tab PO SCH (09:44)
--- NOTE | 2017-03-20 09:51 | RAD ---
HISTORY: Shortness of breath COMPARISON: 03/12/2017. TECHNIQUE: Chest PA and lateral FINDINGS: LUNGS: The lungs are clear. PLEURA: No significant pleural effusion identified. No pneumothorax apparent. CARDIOVASCULAR: Normal. OSSEOUS STRUCTURES: No significant abnormalities. VISUALIZED UPPER ABDOMEN: Normal. OTHER FINDINGS: None. IMPRESSION: No active pulmonary disease.
[2017-03-20] MEDS: VOLTAREN 1% TOP SCH ×3 (10:31→17:05)
[2017-03-20] MEDS: Clotrimazole 1% Cream(30 gm) TOP SCH (10:39)
--- NOTE | 2017-03-20 11:54 | CARD ---
APPROVED REPORT EKG Measurement Heart [id number] <Conclusion> Sinus tachycardia Left axis deviation Nonspecific ST abnormality Abnormal ECG
--- NOTE | 2017-03-20 14:14 | CP.PCM.CON ---
<Mary Lozano - Last Filed: 03/20/17 19:45> History of Present Illness - History of Present Illness History of Present Illness: Seen and examined at bedside earlier today. Chart reviewed. Request for GI consult is for Positive guiac. HPI: 81 y/o female pmh of HTN, RA, DM, COPd, GERD, Cardiomyopathy, HX: caridac cath, on Effient, came to the ER with complaints of productive cough over the 2 weeks. Patient saw PMD prior and was given antibiotics. she was also given steroids with relief but then cough returned and was getting QUIROZ, no fever, chills, GODOY or CP. Had CXR on admission and found to have atelectasis LLL vs pneumonia. In review of her labs her HGB was noted to be dropping, she did receive 1 unit of PRBC but found to be guiac positive. She denies melena, hematemsis, BRBPR. Her last colon was less than 5 years ago in [place] doesn' t recall having polyps, she doubts that she had EGD. PMH: HLD, HTN, COPD,Peripheral edema, RA, DM, Anemia,CVA,GERD, Cardiomyopathy, Coronary stents PSH: denies FHX: denies Social HX: denies smoking, ETOH, Drugs MEDS: reviewed as per MAR ROS: systems reviewed with positive findings, see HPI Past Patient History - Infectious Disease Hx of Infectious Diseases: None - Tetanus Immunizations Tetanus Immunization: Unknown - Past Social History Smoking Status: Never Smoked - CARDIAC Hx Hypercholesterolemia: Yes Hx Hypertension: Yes - PULMONARY Hx Asthma: Yes Hx Pneumonia: Yes - NEUROLOGICAL HX Cerebrovascular Accident: Yes - HEENT Hx HEENT Problems: Yes (eyeglasses) - RENAL Hx Chronic Kidney Disease: No - ENDOCRINE/METABOLIC Hx Diabetes Mellitus Type 2: Yes - HEMATOLOGICAL/ONCOLOGICAL Hx Anemia: Yes - INTEGUMENTARY Hx Dermatological Problems: Yes Other/Comment: multiple skin discolorations ble - MUSCULOSKELETAL/RHEUMATOLOGICAL Hx Arthritis: Yes (hands) - GASTROINTESTINAL Hx Gastrointestinal Disorders: Yes (hiatal hernia) Hx Gastroesophageal Reflux: Yes - GENITOURINARY/GYNECOLOGICAL Hx Urinary Tract Infection: Yes - PSYCHIATRIC Hx Anxiety: Yes - SURGICAL HISTORY Hx Cardiac Catheterization: Yes Hx Coronary Stent: Yes Other/Comment: herniated disks - - ANESTHESIA Hx Anesthesia: Yes Hx Anesthesia Reactions: No Hx Malignant Hyperthermia: No Meds Allergies/Adverse Reactions: Allergies Allergy/AdvReac Type Severity Reaction Status Date / Time No Known Allergies Allergy Verified 03/12/17 12:22 - Medications Medications: Current Medications Alprazolam (Xanax) 0.5 mg PO HS [facility] PRN Reason: Protocol Last Admin: 03/19/17 21:44 Dose: 0.5 mg Alprazolam (Xanax) 0.5 mg PO TID PRN; Protocol PRN Reason: Anxiety Last Admin: 03/20/17 10:18 Dose: 0.5 mg Amlodipine Besylate (Norvasc) 5 mg PO DAILY [facility] Last Admin: 03/20/17 10:34 Dose: 5 mg Benzocaine/Menthol (Cepacol Sore Throat) 1 bassem MT Q2H PRN PRN Reason: Sore Throat Last Admin: 03/20/17 05:20 Dose: 1 bassem Clotrimazole (Lotrimin 1%) 0 gm TOP DAILY [facility] Last Admin: 03/20/17 10:39 Dose: 1 applic Guaifenesin/Dextromethorphan (Robitussin Dm) 5 ml PO Q6 [facility] Last Admin: 03/20/17 11:41 Dose: 5 ml Home Med (Home Med) 1 unit TOP TID [facility] Last Admin: 03/20/17 10:31 Dose: Not Given Meropenem 1g/NS 100mL IVPB (Meropenem 1g/Ns 100ml Ivpb) 1 gm in 100 mls @ 100 mls/hr IVPB Q8 [facility] PRN Reason: Protocol Stop: 03/28/17 22:01 Last Admin: 03/20/17 05:15 Dose: 100 mls/hr Vancomycin HCl (Vancomycin 750 Mg In Ns) 750 mg in 250 mls @ 167 mls/hr IVPB Q12H [facility] PRN Reason: Protocol Stop: 03/28/17 16:16 Last Admin: 03/20/17 04:24 Dose: 167 mls/hr Insulin Human Regular (Humulin R Med) 0 units SC ACHS [facility] PRN Reason: Protocol Last Admin: 03/20/17 11:40 Dose: 5 units Metoprolol Succinate (Toprol Xl) 50 mg PO BRK [facility] Mirtazapine (Remeron) 15 mg PO DAILY [facility] Last Admin: 06/27/17 09:43 Dose: 15 mg Multivitamins (Thera Tab) 1 tab PO DAILY [facility] Last Admin: 03/20/17 09:44 Dose: 1 tab Pantoprazole Sodium (Protonix Inj) 40 mg IVP DAILY [facility] Last Admin: 03/20/17 09:44 Dose: 40 mg Potassium Chloride (K-Dur 20 Meq Er Tab) 20 meq PO BID [facility] Last Admin: 03/20/17 09:43 Dose: 20 meq Prednisone (Prednisone Tab) 5 mg PO DAILY [facility] Last Admin: 03/20/17 09:44 Dose: 5 mg Quetiapine Fumarate (Seroquel) 100 mg PO HS [facility] PRN Reason: Protocol Last Admin: 03/19/17 21:43 Dose: 100 mg Ramipril (Altace) 5 mg PO DAILY [facility] Last Admin: 03/20/17 09:43 Dose: 5 mg Physical Exam - Constitutional Appears: No Acute Distress - Head Exam Head Exam: NORMAL INSPECTION - Eye Exam Eye Exam: Normal appearance, PERRL. absent: Scleral icterus - ENT Exam ENT Exam: Mucous Membranes Moist - Neck Exam Neck exam: Positive for: Normal Inspection - Respiratory Exam Respiratory Exam: Clear to Auscultation Bilateral, NORMAL BREATHING PATTERN. absent: Respiratory Distress - Cardiovascular Exam Cardiovascular Exam: +S1, +S2 - GI/Abdominal Exam GI & Abdominal Exam: Normal Bowel Sounds, Soft. absent: Guarding, Organomegaly , Rebound, Tenderness - Extremities Exam Extremities exam: Positive for: pedal pulses present. Negative for: calf tenderness, pedal edema Additional comments: bilateral knees swollen - Neurological Exam Neurological exam: Alert, Oriented x3 - Skin Skin Exam: Dry, Warm Results - Vital Signs Recent Vital Signs: Last Vital Signs Temp 98.6 F 03/20/17 12:45 Pulse 125 H 03/20/17 12:45 Resp 18 03/20/17 12:45 BP 126/66 03/20/17 12:45 Pulse Ox 98 03/20/17 08:28 - Labs Result Diagrams: 03/20/17 07:00 03/20/17 07:00 Labs: Laboratory Results - last 24 hr 03/18/17 03/19/17 03/19/17 11:00 11:18 11:19 WBC RBC Hgb 9.5 L Hct MCV MCH MCHC RDW Plt Count MPV Gran % Lymph % (Auto) [place] % (Auto) Eos % (Auto) Baso % (Auto) Gran # Lymph # [place] # Eos # Baso # D-Dimer, Quantitative Sodium Potassium Chloride Carbon Dioxide Anion Gap BUN Creatinine Est GFR ( Amer) Est GFR (Non-Af Amer) POC Glucose (mg/dL) Random Glucose Calcium Total Bilirubin AST ALT Alkaline Phosphatase Lactate Dehydrogenase Total Creatine Kinase Troponin I Total Protein Albumin Globulin Albumin/Globulin Ratio Procalcitonin Free T4 1.29 TSH 3rd Generation 2.76 Stool Occult Blood Proteinase 3 (PR3) <1.0 Myeloperoxidase Ab <1.0 Blood Type Blood Type Confirm Antibody Screen Crossmatch BBK History Checked 03/19/17 03/19/17 03/19/17 16:00 16:00 16:19 WBC RBC Hgb Hct MCV MCH MCHC RDW Plt Count MPV Gran % Lymph % (Auto) [place] % (Auto) Eos % (Auto) Baso % (Auto) Gran # Lymph # [place] # Eos # Baso # D-Dimer, Quantitative 8.81 H Sodium Potassium Chloride Carbon Dioxide Anion Gap BUN Creatinine Est GFR ( Amer) Est GFR (Non-Af Amer) POC Glucose (mg/dL) 219 H Random Glucose Calcium Total Bilirubin AST ALT Alkaline Phosphatase Lactate Dehydrogenase Total Creatine Kinase Troponin I Total Protein Albumin Globulin Albumin/Globulin Ratio Procalcitonin < 0.05 L Free T4 TSH 3rd Generation Stool Occult Blood Proteinase 3 (PR3) Myeloperoxidase Ab Blood Type Blood Type Confirm Antibody Screen Crossmatch BBK History Checked 03/19/17 03/19/17 03/19/17 18:20 21:15 21:31 WBC RBC Hgb Hct MCV MCH MCHC RDW Plt Count MPV Gran % Lymph % (Auto) [place] % (Auto) Eos % (Auto) Baso % (Auto) Gran # Lymph # [place] # Eos # Baso # D-Dimer, Quantitative Sodium Potassium Chloride Carbon Dioxide Anion Gap BUN Creatinine Est GFR ( Amer) Est GFR (Non-Af Amer) POC Glucose (mg/dL) 81 Random Glucose Calcium Total Bilirubin AST ALT Alkaline Phosphatase Lactate Dehydrogenase 742 H Total Creatine Kinase 21 L Troponin I 0.05 Total Protein Albumin Globulin Albumin/Globulin Ratio Procalcitonin Free T4 TSH 3rd Generation Stool Occult Blood Positive H Proteinase 3 (PR3) Myeloperoxidase Ab Blood Type Blood Type Confirm Antibody Screen Crossmatch BBK History Checked 03/20/17 03/20/17 03/20/17 07:00 07:00 08:10 WBC 12.8 H RBC 2.63 L Hgb 8.1 L Hct 25.1 L MCV 95.4 MCH 30.8 MCHC 32.3 RDW 15.1 H Plt Count 117 L MPV 9.5 Gran % 75.3 H Lymph % (Auto) 19.3 L [place] % (Auto) 4.4 Eos % (Auto) 0.9 L Baso % (Auto) 0.1 Gran # 9.67 H Lymph # 2.5 [place] # 0.6 Eos # 0.1 Baso # 0.01 D-Dimer, Quantitative Sodium 138 Potassium 3.4 L Chloride 114 H Carbon Dioxide 19 L Anion Gap 8 L BUN 29 H Creatinine 0.9 Est GFR ( Amer) > 60 Est GFR (Non-Af Amer) > 60 POC Glucose (mg/dL) 88 Random Glucose 91 Calcium 7.8 L Total Bilirubin 0.5 AST 22 ALT 26 Alkaline Phosphatase 53 Lactate Dehydrogenase 712 H Total Creatine Kinase 21 L Troponin I 0.06 Total Protein 5.6 L Albumin 2.4 L Globulin 3.3 Albumin/Globulin Ratio 0.7 L Procalcitonin Free T4 TSH 3rd Generation Stool Occult Blood Proteinase 3 (PR3) Myeloperoxidase Ab Blood Type Blood Type Confirm Antibody Screen Crossmatch BBK History Checked 03/20/17 03/20/17 03/20/17 09:45 10:30 11:01 WBC RBC Hgb Hct MCV MCH MCHC RDW Plt Count MPV Gran % Lymph % (Auto) [place] % (Auto) Eos % (Auto) Baso % (Auto) Gran # Lymph # [place] # Eos # Baso # D-Dimer, Quantitative Sodium Potassium Chloride Carbon Dioxide Anion Gap BUN Creatinine Est GFR ( Amer) Est GFR (Non-Af Amer) POC Glucose (mg/dL) 276 H Random Glucose Calcium Total Bilirubin AST ALT Alkaline Phosphatase Lactate Dehydrogenase Total Creatine Kinase Troponin I Total Protein Albumin Globulin Albumin/Globulin Ratio Procalcitonin Free T4 TSH 3rd Generation Stool Occult Blood Proteinase 3 (PR3) Myeloperoxidase Ab Blood Type A POSITIVE Blood Type Confirm A POSITIVE Antibody Screen Negative Crossmatch See Detail BBK History Checked No verified bt Assessment & Plan - Assessment and Plan (Free Text) Assessment: ASSESMENT: Anemia, (+) guiac, r/o PUD, angiodysplasia RA Pnuemonia HTN COPD GERD Cardiomyopathy H/O CVA Diarrhea r/o Cdiff PLAN: pending Cdiff blood transfusion continue PPI on IV antibiotics monitor H/H on prednisone off Effient. last dose 03/19 benefit from EGD/colon when optimal, pt last dose Effient 03/[address] scan abdoomen and pelvis w/oral contrast Thank you for this consult and for allowing us to participate in your patient care. will make further recommendations based upon clinical course. Seen and discussed with Dr. Marie. <Tj Marie V - Last Filed: 03/21/17 01:34> Meds - Medications Medications: Current Medications Acetaminophen (Tylenol 325mg Tab) 650 mg PO Q6H PRN PRN Reason: Pain, moderate (4-7) Alprazolam (Xanax) 0.5 mg PO HS [facility] PRN Reason: Protocol Last Admin: 03/20/17 21:53 Dose: 0.5 mg Alprazolam (Xanax) 0.5 mg PO TID PRN; Protocol PRN Reason: Anxiety Last Admin: 03/20/17 10:18 Dose: 0.5 mg Amlodipine Besylate (Norvasc) 5 mg PO DAILY [facility] Last Admin: 03/20/17 10:34 Dose: 5 mg Benzocaine/Menthol (Cepacol Sore Throat) 1 bassem MT Q2H PRN PRN Reason: Sore Throat Last Admin: 03/20/17 05:20 Dose: 1 bassem Clotrimazole (Lotrimin 1%) 0 gm TOP DAILY [facility] Last Admin: 03/20/17 10:39 Dose: 1 applic Guaifenesin/Dextromethorphan (Robitussin Dm) 5 ml PO Q6 [facility] Last Admin: 03/20/17 17:04 Dose: 5 ml Home Med (Home Med) 1 unit TOP TID [facility] Last Admin: 03/20/17 17:05 Dose: Not Given Meropenem 1g/NS 100mL IVPB (Meropenem 1g/Ns 100ml Ivpb) 1 gm in 100 mls @ 100 mls/hr IVPB Q8 [facility] PRN Reason: Protocol Stop: 03/28/17 22:01 Last Admin: 03/20/17 21:53 Dose: 100 mls/hr Vancomycin HCl (Vancomycin 750 Mg In Ns) 750 mg in 250 mls @ 167 mls/hr IVPB Q12H [facility] PRN Reason: Protocol Stop: 03/28/17 16:16 Last Admin: 03/20/17 16:35 Dose: Not Given Insulin Human Regular (Humulin R Med) 0 units SC ACHS [facility] PRN Reason: Protocol Last Admin: 03/20/17 22:49 Dose: Not Given Metoprolol Succinate (Toprol Xl) 50 mg PO BRK [facility] Mirtazapine (Remeron) 15 mg PO DAILY [facility] Last Admin: 03/20/17 09:43 Dose: 15 mg Multivitamins (Thera Tab) 1 tab PO DAILY [facility] Last Admin: 03/20/17 09:44 Dose: 1 tab Pantoprazole Sodium (Protonix Inj) 40 mg IVP DAILY [facility] Last Admin: 03/20/17 09:44 Dose: 40 mg Potassium Chloride (K-Dur 20 Meq Er Tab) 20 meq PO BID [facility] Last Admin: 03/20/17 17:04 Dose: 20 meq Prednisone (Prednisone Tab) 5 mg PO DAILY [facility] Last Admin: 03/20/17 09:44 Dose: 5 mg Quetiapine Fumarate (Seroquel) 100 mg PO HS [facility] PRN Reason: Protocol Last Admin: 03/20/17 21:53 Dose: 100 mg Ramipril (Altace) 5 mg PO DAILY [facility] Last Admin: 03/20/17 09:43 Dose: 5 mg Results - Vital Signs Recent Vital Signs: Last Vital Signs Temp 98.6 F 03/20/17 18:25 Pulse 119 H 03/20/17 18:25 Resp 16 03/20/17 18:25 BP 132/70 03/20/17 18:25 Pulse Ox 98 03/20/17 16:30 - Labs Result Diagrams: 03/20/17 07:00 03/20/17 07:00 Labs: Laboratory Results - last 24 hr 03/20/17 03/20/17 03/20/17 07:00 07:00 08:10 WBC 12.8 H RBC 2.63 L Hgb 8.1 L Hct 25.1 L MCV 95.4 MCH 30.8 MCHC 32.3 RDW 15.1 H Plt Count 117 L MPV 9.5 Gran % 75.3 H Lymph % (Auto) 19.3 L [place] % (Auto) 4.4 Eos % (Auto) 0.9 L Baso % (Auto) 0.1 Gran # 9.67 H Lymph # 2.5 [place] # 0.6 Eos # 0.1 Baso # 0.01 Sodium 138 Potassium 3.4 L Chloride 114 H Carbon Dioxide 19 L Anion Gap 8 L BUN 29 H Creatinine 0.9 Est GFR ( Amer) > 60 Est GFR (Non-Af Amer) > 60 POC Glucose (mg/dL) 88 Random Glucose 91 Calcium 7.8 L Total Bilirubin 0.5 AST 22 ALT 26 Alkaline Phosphatase 53 Lactate Dehydrogenase 712 H Total Creatine Kinase 21 L Troponin I 0.06 Total Protein 5.6 L Albumin 2.4 L Globulin 3.3 Albumin/Globulin Ratio 0.7 L Blood Type Blood Type Confirm Antibody Screen Crossmatch BBK History Checked 03/20/17 03/20/17 03/20/17 09:45 10:30 11:01 WBC RBC Hgb Hct MCV MCH MCHC RDW Plt Count MPV Gran % Lymph % (Auto) [place] % (Auto) Eos % (Auto) Baso % (Auto) Gran # Lymph # [place] # Eos # Baso # Sodium Potassium Chloride Carbon Dioxide Anion Gap BUN Creatinine Est GFR ( Amer) Est GFR (Non-Af Amer) POC Glucose (mg/dL) 276 H Random Glucose Calcium Total Bilirubin AST ALT Alkaline Phosphatase Lactate Dehydrogenase Total Creatine Kinase Troponin I Total Protein Albumin Globulin Albumin/Globulin Ratio Blood Type A POSITIVE Blood Type Confirm A POSITIVE Antibody Screen Negative Crossmatch See Detail BBK History Checked No verified bt 03/20/17 03/20/17 16:10 21:03 WBC RBC Hgb Hct MCV MCH MCHC RDW Plt Count MPV Gran % Lymph % (Auto) [place] % (Auto) Eos % (Auto) Baso % (Auto) Gran # Lymph # [place] # Eos # Baso # Sodium Potassium Chloride Carbon Dioxide Anion Gap BUN Creatinine Est GFR ( Amer) Est GFR (Non-Af Amer) POC Glucose (mg/dL) 243 H 152 H Random Glucose Calcium Total Bilirubin AST ALT Alkaline Phosphatase Lactate Dehydrogenase Total Creatine Kinase Troponin I Total Protein Albumin Globulin Albumin/Globulin Ratio Blood Type Blood Type Confirm Antibody Screen Crossmatch BBK History Checked Attending/Attestation - Attestation Notes (Text): this patient was seen and evaluated. Patient was on effient..would benefit from GI evauation.. We'll discuss with the Dr. Sanchez and assembler type bar and segment.. Continue PPI. Follow up hemoglobin. Requested CT of the abdomen and pelvis to further evaluate. Thank you very much for allowing us to participate in the patient
--- NOTE | 2017-03-20 23:54 | CP.PCM.PN ---
Subjective - Date & Time of Evaluation Date of Evaluation: 03/20/17 Time of Evaluation: 09:00 - Subjective Subjective: WEAK Objective - Vital Signs/Intake and Output Vital Signs (last 24 hours): Temp Pulse Resp BP Pulse Ox 98.6 F 119 H 16 132/70 98 03/20/17 18:25 03/20/17 18:25 03/20/17 18:25 03/20/17 18:25 03/20/17 16:30 Intake and Output: 03/20/17 03/21/17 18:59 06:59 Intake Total 815 380 Balance 815 380 - Medications Medications: Current Medications Acetaminophen (Tylenol 325mg Tab) 650 mg PO Q6H PRN PRN Reason: Pain, moderate (4-7) Alprazolam (Xanax) 0.5 mg PO HS [facility] PRN Reason: Protocol Last Admin: 03/20/17 21:53 Dose: 0.5 mg Alprazolam (Xanax) 0.5 mg PO TID PRN; Protocol PRN Reason: Anxiety Last Admin: 03/20/17 10:18 Dose: 0.5 mg Amlodipine Besylate (Norvasc) 5 mg PO DAILY [facility] Last Admin: 03/20/17 10:34 Dose: 5 mg Benzocaine/Menthol (Cepacol Sore Throat) 1 bassem MT Q2H PRN PRN Reason: Sore Throat Last Admin: 03/20/17 05:20 Dose: 1 bassem Clotrimazole (Lotrimin 1%) 0 gm TOP DAILY [facility] Last Admin: 03/20/17 10:39 Dose: 1 applic Guaifenesin/Dextromethorphan (Robitussin Dm) 5 ml PO Q6 [facility] Last Admin: 03/20/17 17:04 Dose: 5 ml Home Med (Home Med) 1 unit TOP TID [facility] Last Admin: 03/20/17 17:05 Dose: Not Given Meropenem 1g/NS 100mL IVPB (Meropenem 1g/Ns 100ml Ivpb) 1 gm in 100 mls @ 100 mls/hr IVPB Q8 [facility] PRN Reason: Protocol Stop: 03/28/17 22:01 Last Admin: 03/20/17 21:53 Dose: 100 mls/hr Vancomycin HCl (Vancomycin 750 Mg In Ns) 750 mg in 250 mls @ 167 mls/hr IVPB Q12H [facility] PRN Reason: Protocol Stop: 03/28/17 16:16 Last Admin: 03/20/17 16:35 Dose: Not Given Insulin Human Regular (Humulin R Med) 0 units SC ACHS [facility] PRN Reason: Protocol Last Admin: 03/20/17 22:49 Dose: Not Given Metoprolol Succinate (Toprol Xl) 50 mg PO BRK [facility] Mirtazapine (Remeron) 15 mg PO DAILY [facility] Last Admin: 03/20/17 09:43 Dose: 15 mg Multivitamins (Thera Tab) 1 tab PO DAILY [facility] Last Admin: 03/20/17 09:44 Dose: 1 tab Pantoprazole Sodium (Protonix Inj) 40 mg IVP DAILY [facility] Last Admin: 03/20/17 09:44 Dose: 40 mg Potassium Chloride (K-Dur 20 Meq Er Tab) 20 meq PO BID [facility] Last Admin: 03/20/17 17:04 Dose: 20 meq Prednisone (Prednisone Tab) 5 mg PO DAILY [facility] Last Admin: 03/20/17 09:44 Dose: 5 mg Quetiapine Fumarate (Seroquel) 100 mg PO HS [facility] PRN Reason: Protocol Last Admin: 03/20/17 21:53 Dose: 100 mg Ramipril (Altace) 5 mg PO DAILY [facility] Last Admin: 03/20/17 09:43 Dose: 5 mg - Labs Labs: 03/20/17 07:00 03/20/17 07:00 - Constitutional Appears: Well - Head Exam Head Exam: ATRAUMATIC, NORMAL INSPECTION, NORMOCEPHALIC - Eye Exam Eye Exam: EOMI, Normal appearance, PERRL Pupil Exam: NORMAL ACCOMODATION, PERRL - ENT Exam ENT Exam: Mucous Membranes Moist, Normal Exam - Neck Exam Neck Exam: Full ROM, Normal Inspection. absent: Lymphadenopathy - Respiratory Exam Respiratory Exam: Clear to Ausculation Bilateral, NORMAL BREATHING PATTERN - Cardiovascular Exam Cardiovascular Exam: REGULAR RHYTHM, +S1, +S2. absent: Murmur - GI/Abdominal Exam GI & Abdominal Exam: Soft, Normal Bowel Sounds. absent: Tenderness - Rectal Exam Rectal Exam: NORMAL INSPECTION - Exam Exam: Circumcision, NORMAL INSPECTION External exam: NORMAL EXTERNAL EXAM Speculum exam: NORMAL SPECULUM EXAM Bimanual exam: NORMAL BIMANUAL EXAM - Extremities Exam Extremities Exam: Full ROM, Normal Capillary Refill, Normal Inspection. absent : Joint Swelling, Pedal Edema - Back Exam Back Exam: NORMAL INSPECTION - Neurological Exam Neurological Exam: Alert, Awake, CN II-XII Intact, Normal Gait, Oriented x3 - Psychiatric Exam Psychiatric exam: Normal Affect, Normal Mood - Skin Skin Exam: Dry, Intact, Normal Color, Warm Assessment and Plan - Assessment and Plan (Free Text) Assessment: STAHP BACTEREMIA Plan: PRESENT THERAPY D/W DR BATRES
[2017-03-21] MEDS: Vancomycin 750mg 750 MG/250 ML BAG IVPB SCH ×2 (03:44→15:16)
[2017-03-21] MEDS: guaiFENesin DM 100 mg-10 mg/5 ml UD PO SCH ×4 (05:29→18:03)
[2017-03-21] MEDS ORDERED: Barium Sulfate Susp 2.1% w/v, 2.0% w/w 450 mL Bottle PO ONE (07:01)
[2017-03-21 07:46] LABS: HEMATOCRIT 33.3 % (36.0-48.0); MEAN CELL VOLUME 91.5 fL (80.0-105.0); MEAN CORPUSCULAR HEMOGLOBIN 30.2 pg (25.0-35.0); MEAN PLATELET VOLUME 10.2 fl (7.0-11.0); RED CELL DISTRIBUTION WIDTH 16.6 % (11.5-14.5); WHITE BLOOD COUNT 10.8 10^3/ul (4.5-11.0)
[2017-03-21 07:58] LABS: ALB/GLOB RATIO 0.7 (1.1-1.8); ALKALINE PHOSPHATASE 55 U/L (38-133); ALT/SGPT 27 U/L (7-56); AST/SGOT 21 U/L (15-39); BILIRUBIN,TOTAL 0.7 mg/dL (0.2-1.3); BLOOD UREA NITROGEN 25 mg/dL (7-21); CALCIUM 7.9 mg/dL (8.4-10.5); CARBON DIOXIDE 18 mmol/L (21-33); CHLORIDE 117 mmol/L (98-107); GFR AFRICAN-AMERICAN > 60; GLUCOSE,RANDOM 103 mg/dL (70-110); POTASSIUM 4.1 mmol/L (3.6-5.0); SODIUM 139 mmol/L (132-148); TOTAL PROTEIN 5.7 g/dL (5.8-8.3)
[2017-03-21] MEDS: Insulin Reg-MEDIUM-Coverage SC SCH ×4 (08:03→21:28)
[2017-03-21] MEDS: Metoprolol Succinate 50 mg XL Tab PO SCH (08:27)
[2017-03-21] MEDS: Clotrimazole 1% Cream(30 gm) TOP SCH (11:20)
[2017-03-21] MEDS: Multivitamin Therapeutic Tab PO SCH (11:21)
[2017-03-21] MEDS: Potassium Chloride 20 mEq ER Tab PO SCH ×2 (11:21→18:01)
[2017-03-21] MEDS: VOLTAREN 1% TOP SCH ×3 (11:22→18:05)
--- NOTE | 2017-03-21 11:24 | CP.PCM.PN ---
Subjective - Date & Time of Evaluation Date of Evaluation: 03/21/17 Time of Evaluation: 08:30 - Subjective Subjective: S&E earlier today, drinking oral ct scan. No N/V, abdominal pain, or overt GI bleeding. No SOB or chest pain. No diarrhea. Objective - Vital Signs/Intake and Output Vital Signs (last 24 hours): Temp Pulse Resp BP Pulse Ox 98.7 F 107 H 20 166/92 H 99 03/21/17 09:16 03/21/17 09:16 03/21/17 09:16 03/21/17 09:16 03/21/17 09:16 Intake and Output: 03/21/17 03/21/17 06:59 18:59 Intake Total 1180 Output Total 601 Balance 579 - Medications Medications: Current Medications Acetaminophen (Tylenol 325mg Tab) 650 mg PO Q6H PRN PRN Reason: Pain, moderate (4-7) Alprazolam (Xanax) 0.5 mg PO HS [facility] PRN Reason: Protocol Last Admin: 03/20/17 21:53 Dose: 0.5 mg Alprazolam (Xanax) 0.5 mg PO TID PRN; Protocol PRN Reason: Anxiety Last Admin: 03/20/17 10:18 Dose: 0.5 mg Amlodipine Besylate (Norvasc) 5 mg PO DAILY [facility] Last Admin: 03/20/17 10:34 Dose: 5 mg Benzocaine/Menthol (Cepacol Sore Throat) 1 bassem MT Q2H PRN PRN Reason: Sore Throat Last Admin: 03/20/17 05:20 Dose: 1 bassem Clotrimazole (Lotrimin 1%) 0 gm TOP DAILY [facility] Last Admin: 03/20/17 10:39 Dose: 1 applic Guaifenesin/Dextromethorphan (Robitussin Dm) 5 ml PO Q6 [facility] Last Admin: 03/21/17 05:29 Dose: 5 ml Home Med (Home Med) 1 unit TOP TID [facility] Last Admin: 03/20/17 17:05 Dose: Not Given Meropenem 1g/NS 100mL IVPB (Meropenem 1g/Ns 100ml Ivpb) 1 gm in 100 mls @ 100 mls/hr IVPB Q8 [facility] PRN Reason: Protocol Stop: 03/28/17 22:01 Last Admin: 03/20/17 21:53 Dose: 100 mls/hr Vancomycin HCl (Vancomycin 750 Mg In Ns) 750 mg in 250 mls @ 167 mls/hr IVPB Q12H [facility] PRN Reason: Protocol Stop: 03/28/17 16:16 Last Admin: 03/21/17 03:44 Dose: 167 mls/hr Insulin Human Regular (Humulin R Med) 0 units SC ACHS [facility] PRN Reason: Protocol Last Admin: 03/21/17 08:03 Dose: Not Given Metoprolol Succinate (Toprol Xl) 50 mg PO BRK [facility] Last Admin: 03/21/17 08:27 Dose: 50 mg Mirtazapine (Remeron) 15 mg PO DAILY [facility] Last Admin: 03/20/17 09:43 Dose: 15 mg Multivitamins (Thera Tab) 1 tab PO DAILY [facility] Last Admin: 03/20/17 09:44 Dose: 1 tab Pantoprazole Sodium (Protonix Inj) 40 mg IVP DAILY [facility] Last Admin: 03/20/17 09:44 Dose: 40 mg Potassium Chloride (K-Dur 20 Meq Er Tab) 20 meq PO BID [facility] Last Admin: 03/20/17 17:04 Dose: 20 meq Prednisone (Prednisone Tab) 5 mg PO DAILY [facility] Last Admin: 03/20/17 09:44 Dose: 5 mg Quetiapine Fumarate (Seroquel) 100 mg PO HS [facility] PRN Reason: Protocol Last Admin: 03/20/17 21:53 Dose: 100 mg Ramipril (Altace) 5 mg PO DAILY [facility] Last Admin: 03/20/17 09:43 Dose: 5 mg - Labs Labs: 03/21/17 07:10 03/21/17 07:10 - Constitutional Appears: No Acute Distress - Head Exam Head Exam: NORMAL INSPECTION - Eye Exam Eye Exam: Normal appearance. absent: Scleral icterus - ENT Exam ENT Exam: Mucous Membranes Moist - Neck Exam Neck Exam: Normal Inspection - Respiratory Exam Respiratory Exam: Rales, NORMAL BREATHING PATTERN. absent: Respiratory Distress - Cardiovascular Exam Cardiovascular Exam: +S1, +S2 - GI/Abdominal Exam GI & Abdominal Exam: Soft, Normal Bowel Sounds. absent: Guarding, Tenderness, Organomegaly, Rebound - Extremities Exam Extremities Exam: Joint Swelling (bilateral knees). absent: Calf Tenderness, Pedal Edema - Neurological Exam Neurological Exam: Alert, Awake, Oriented x3 - Skin Skin Exam: Dry, Warm Assessment and Plan - Assessment and Plan (Free Text) Assessment: ASSESMENT: Anemia, (+) guiac, r/o PUD, angiodysplasia, s/p Blood transfusion RA Pnuemonia HTN COPD GERD Cardiomyopathy H/O CVA Diarrhea, Cdiff negative PLAN: continue PPI on IV antibiotics monitor H/H on prednisone off Effient, last dose 03/19,prior to any surgery patient need to be off 7 days prior, currently 2/[address] scan abdomen and pelvis benefit from EGD/colon when optimal, pt last dose Effient 03/19 Seen and discussed with Dr. Marie.
--- NOTE | 2017-03-21 13:14 | CP.PCM.CON ---
History of Present Illness - History of Present Illness History of Present Illness: Marija Sullivan is a 81-year-old woman admitted with increasing cough and dyspnea. She is an extremely poor historian and does not know any details regarding her prior cardiac history. According to the chart, she has undergone prior stents as well as peripheral stenting. She has been on immunosuppressive agents for her rheumatoid arthritis. A consult was requested because her resting tachycardia. Her heart rate was in the 130 range yesterday. She was also found to be severely anemic. She has been transfused and appears more comfortable. she denies any chest pain. She is unaware of any recent dyspnea. Review of Systems - Constitutional Constitutional: absent: As Per HPI, Anorexia, Chills, Daytime Sleepiness, Excessive Sweating, Fatigue, Fever, Frequent Falls, Headache, Increased Appetite , Lethargy, Malaise, Night Sweats, Snoring, Sleep Apnea, Weight Gain, Weight Loss, Weakness, Other - Cardiovascular Cardiovascular: Dyspnea. absent: As Per HPI, Acrocyanosis, Chest Pain, Chest Pain at Rest, Chest Pain with Activity, Claudication, Diaphoresis, Dyspnea on Exertion, Edema, Irregular Heart Rhythm, Pain Radiating to Arm/Neck/Jaw, Leg Edema, Leg Ulcers, Lightheadedness, Orthopnea, Palpitations, Paroxysmal Nocturnal Dyspnea, Pedal Edema, Radiating Pain, Rapid Heart Rate, Slow Heart Rate, Syncope, Other - Respiratory Respiratory: Dyspnea - Gastrointestinal Gastrointestinal: absent: As Per HPI, Abdominal Pain, Belching, Bloating, Change in Bowel Habits, Change in Stool Character, Coffee Ground Emesis, Constipation, Cramping, Diarrhea, Dyspepsia, Dysphagia, Early Satiety, Excessive Flatus, Fecal Incontinence, Heartburn, Hematemesis, Hematochezia, Loose Stools, Melena, Nausea, Odynophagia, Temesmus, Vomiting, Other - Musculoskeletal Musculoskeletal: absent: As Per HPI, Abnormal Gait, Arthralgias, Atrophy, Back Pain, Deformity, Joint Swelling, Limited Range of Motion, Loss of Height, Muscle Cramps, Muscle Weakness, Myalgias, Neck Pain, Numbness, Radiating Pain into Limb, Stiffness, Tingling, Other Past Patient History - Infectious Disease Hx of Infectious Diseases: None - Tetanus Immunizations Tetanus Immunization: Unknown - Past Social History Smoking Status: Never Smoked - CARDIAC Hx Hypercholesterolemia: Yes Hx Hypertension: Yes - PULMONARY Hx Asthma: Yes Hx Pneumonia: Yes - NEUROLOGICAL HX Cerebrovascular Accident: Yes - HEENT Hx HEENT Problems: Yes (eyeglasses) - RENAL Hx Chronic Kidney Disease: No - ENDOCRINE/METABOLIC Hx Diabetes Mellitus Type 2: Yes - HEMATOLOGICAL/ONCOLOGICAL Hx Anemia: Yes - INTEGUMENTARY Hx Dermatological Problems: Yes Other/Comment: multiple skin discolorations ble - MUSCULOSKELETAL/RHEUMATOLOGICAL Hx Arthritis: Yes (hands) - GASTROINTESTINAL Hx Gastrointestinal Disorders: Yes (hiatal hernia) Hx Gastroesophageal Reflux: Yes - GENITOURINARY/GYNECOLOGICAL Hx Urinary Tract Infection: Yes - PSYCHIATRIC Hx Anxiety: Yes - SURGICAL HISTORY Hx Cardiac Catheterization: Yes Hx Coronary Stent: Yes Other/Comment: herniated disks - - ANESTHESIA Hx Anesthesia: Yes Hx Anesthesia Reactions: No Hx Malignant Hyperthermia: No Meds Allergies/Adverse Reactions: Allergies Allergy/AdvReac Type Severity Reaction Status Date / Time No Known Allergies Allergy Verified 03/12/17 12:22 - Medications Medications: Current Medications Acetaminophen (Tylenol 325mg Tab) 650 mg PO Q6H PRN PRN Reason: Pain, moderate (4-7) Alprazolam (Xanax) 0.5 mg PO HS [facility] PRN Reason: Protocol Last Admin: 03/20/17 21:53 Dose: 0.5 mg Alprazolam (Xanax) 0.5 mg PO TID PRN; Protocol PRN Reason: Anxiety Last Admin: 03/20/17 10:18 Dose: 0.5 mg Amlodipine Besylate (Norvasc) 5 mg PO DAILY [facility] Last Admin: 03/21/17 11:21 Dose: 5 mg Benzocaine/Menthol (Cepacol Sore Throat) 1 bassem MT Q2H PRN PRN Reason: Sore Throat Last Admin: 03/20/17 05:20 Dose: 1 bassem Clotrimazole (Lotrimin 1%) 0 gm TOP DAILY [facility] Last Admin: 03/21/17 11:20 Dose: 1 applic Guaifenesin/Dextromethorphan (Robitussin Dm) 5 ml PO Q6 [facility] Last Admin: 03/21/17 12:19 Dose: Not Given Home Med (Home Med) 1 unit TOP TID [facility] Last Admin: 03/21/17 11:22 Dose: Not Given Meropenem 1g/NS 100mL IVPB (Meropenem 1g/Ns 100ml Ivpb) 1 gm in 100 mls @ 100 mls/hr IVPB Q8 [facility] PRN Reason: Protocol Stop: 03/28/17 22:01 Last Admin: 03/20/17 21:53 Dose: 100 mls/hr Vancomycin HCl (Vancomycin 750 Mg In Ns) 750 mg in 250 mls @ 167 mls/hr IVPB Q12H [facility] PRN Reason: Protocol Stop: 03/28/17 16:16 Last Admin: 03/21/17 03:44 Dose: 167 mls/hr Insulin Human Regular (Humulin R Med) 0 units SC ACHS [facility] PRN Reason: Protocol Last Admin: 03/21/17 11:56 Dose: Not Given Metoprolol Succinate (Toprol Xl) 50 mg PO BRK [facility] Last Admin: 03/21/17 08:27 Dose: 50 mg Mirtazapine (Remeron) 15 mg PO DAILY [facility] Last Admin: 03/21/17 11:21 Dose: 15 mg Multivitamins (Thera Tab) 1 tab PO DAILY [facility] Last Admin: 03/21/17 11:21 Dose: 1 tab Pantoprazole Sodium (Protonix Inj) 40 mg IVP DAILY [facility] Last Admin: 03/21/17 11:21 Dose: 40 mg Potassium Chloride (K-Dur 20 Meq Er Tab) 20 meq PO BID [facility] Last Admin: 03/21/17 11:21 Dose: 20 meq Prednisone (Prednisone Tab) 5 mg PO DAILY [facility] Last Admin: 03/21/17 11:21 Dose: 5 mg Quetiapine Fumarate (Seroquel) 100 mg PO HS [facility] PRN Reason: Protocol Last Admin: 03/20/17 21:53 Dose: 100 mg Ramipril (Altace) 5 mg PO DAILY [facility] Last Admin: 03/21/17 11:20 Dose: 5 mg Physical Exam - Constitutional Appears: In Acute Distress - Head Exam Head Exam: NORMAL INSPECTION - Neck Exam Neck exam: Positive for: Normal Inspection - Respiratory Exam Respiratory Exam: Clear to Auscultation Bilateral - Cardiovascular Exam Cardiovascular Exam: Systolic Murmur - Expanded Cardiovascular Exam Expanded Type of murmur: Systolic Location: Lt Upper Sternal Border - GI/Abdominal Exam GI & Abdominal Exam: Normal Bowel Sounds, Soft - Neurological Exam Neurological exam: Oriented x3 - Psychiatric Exam Psychiatric exam: Flat Affect Results - Vital Signs Recent Vital Signs: Last Vital Signs Temp 98.7 F 06/28/17 09:16 Pulse 108 H 03/21/17 11:21 Resp 20 03/21/17 09:16 BP 166/90 H 03/21/17 11:21 Pulse Ox 99 03/21/17 09:16 - Labs Result Diagrams: 03/21/17 07:10 03/21/17 07:10 Labs: Laboratory Results - last 24 hr 03/18/17 03/19/17 03/20/17 11:00 11:00 09:45 WBC RBC Hgb Hct MCV MCH MCHC RDW Plt Count MPV Sodium Potassium Chloride Carbon Dioxide Anion Gap BUN Creatinine Est GFR ( Amer) Est GFR (Non-Af Amer) POC Glucose (mg/dL) Random Glucose Calcium Total Bilirubin AST ALT Alkaline Phosphatase Total Protein Albumin Globulin Albumin/Globulin Ratio Proteinase 3 (PR3) <1.0 Myeloperoxidase Ab <1.0 TB Test (QFT) Nil 0.06 TB Test Mitogen - Nil 0.38 TB Test TB - Nil <0.00 TB Test (QFT) Indeterminate H Blood Type A POSITIVE Antibody Screen Negative Crossmatch See Detail BBK History Checked No verified bt 03/20/17 03/20/17 03/21/17 16:10 21:03 07:10 WBC 10.8 RBC 3.64 Hgb 11.0 L Hct 33.3 L MCV 91.5 MCH 30.2 MCHC 33.0 RDW 16.6 H Plt Count 77 L MPV 10.2 Sodium Potassium Chloride Carbon Dioxide Anion Gap BUN Creatinine Est GFR ( Amer) Est GFR (Non-Af Amer) POC Glucose (mg/dL) 243 H 152 H Random Glucose Calcium Total Bilirubin AST ALT Alkaline Phosphatase Total Protein Albumin Globulin Albumin/Globulin Ratio Proteinase 3 (PR3) Myeloperoxidase Ab TB Test (QFT) Nil TB Test Mitogen - Nil TB Test TB - Nil TB Test (QFT) Blood Type Antibody Screen Crossmatch BBK History Checked 03/21/17 03/21/17 03/21/17 07:10 07:20 11:08 WBC RBC Hgb Hct MCV MCH MCHC RDW Plt Count MPV Sodium 139 Potassium 4.1 Chloride 117 H Carbon Dioxide 18 L Anion Gap 8 L BUN 25 H Creatinine 0.9 Est GFR ( Amer) > 60 Est GFR (Non-Af Amer) > 60 POC Glucose (mg/dL) 122 H 105 Random Glucose 103 Calcium 7.9 L Total Bilirubin 0.7 AST 21 ALT 27 Alkaline Phosphatase 55 Total Protein 5.7 L Albumin 2.4 L Globulin 3.3 Albumin/Globulin Ratio 0.7 L Proteinase 3 (PR3) Myeloperoxidase Ab TB Test (QFT) Nil TB Test Mitogen - Nil TB Test TB - Nil TB Test (QFT) Blood Type Antibody Screen Crossmatch BBK History Checked - EKG Data EKG comments: sinus tachycardia, no acute abnormalities Assessment & Plan - Assessment and Plan (Free Text) Plan: Impression: * Sinus tachycardia likely physiologic in the setting of severe anemia. * Coronary artery disease, prior details unclear. Appears stable at present. * Severe anemia and guaiac positive stools, workup in progress. * History of severe rheumatoid arthritis * History of COPD Recommendations: * attempts will be made to obtain old records. * A recent echocardiogram will be reviewed. * Current medication should continue for now. * Evaluation of her anemia is in progress. * Further recommendations will be based upon her clinical course and results of the above findings. Thank you for this consultation. We will be happy to follow along as needed. - Date & Time Date: 03/21/17 Time: 11:45
[2017-03-21] MEDS: Meropenem 1g/NS 100mL IVPB 1 GM/100 ML PIGGYBACK IVPB SCH ×2 (13:33→21:26)
--- NOTE | 2017-03-21 13:36 | CT ---
PROCEDURE: CT Abdomen and Pelvis without intravenous contrast HISTORY: anemia COMPARISON: None. TECHNIQUE: Without contrast. Contrast Dose: Radiation dose: Total exam DLP = 298 mGy-cm. This CT exam was performed using one or more of the following dose reduction techniques: Automated exposure control, adjustment of the mA and/or kV according to patient size, and/or use of iterative reconstruction technique. FINDINGS: LOWER THORAX: There is a moderate size hiatal hernia. Bibasilar atelectasis can be seen as well as several small nodules at the left lung base LIVER: Unremarkable. No gross lesion or ductal dilatation. GALLBLADDER AND BILE DUCTS: Unremarkable. PANCREAS: Unremarkable. No gross lesion or ductal dilatation. SPLEEN: Unremarkable. ADRENALS: Unremarkable. No mass. KIDNEYS AND URETERS: Unremarkable. No hydronephrosis. No solid mass. VASCULATURE: Unremarkable. No aortic aneurysm. BOWEL: Unremarkable. No obstruction. No gross mural thickening. There is mild diverticulosis APPENDIX: Unremarkable. Normal appendix. PERITONEUM: Unremarkable. No free fluid. No free air. LYMPH NODES: Unremarkable. No enlarged lymph nodes. BLADDER: Unremarkable. REPRODUCTIVE: Unremarkable. BONES: There is multilevel disc degeneration OTHER FINDINGS: None. IMPRESSION: No acute intra-abdominal findings
[2017-03-21 17:20] LABS: HEMATOCRIT 32.6 % (36.0-48.0)
--- NOTE | 2017-03-21 21:25 | CP.PCM.PN ---
Subjective - Date & Time of Evaluation Date of Evaluation: 03/21/17 Time of Evaluation: 07:40 - Subjective Subjective: DOING BETTER Objective - Vital Signs/Intake and Output Vital Signs (last 24 hours): Temp Pulse Resp BP Pulse Ox 99.6 F 111 H 19 154/83 H 97 03/21/17 16:00 03/21/17 18:00 03/21/17 16:00 03/21/17 16:00 03/21/17 16:00 Intake and Output: 03/21/17 03/22/17 18:59 06:59 Intake Total 240 Output Total 200 Balance 40 - Medications Medications: Current Medications Acetaminophen (Tylenol 325mg Tab) 650 mg PO Q6H PRN PRN Reason: Pain, moderate (4-7) Alprazolam (Xanax) 0.5 mg PO HS [facility] PRN Reason: Protocol Last Admin: 03/20/17 21:53 Dose: 0.5 mg Alprazolam (Xanax) 0.5 mg PO TID PRN; Protocol PRN Reason: Anxiety Last Admin: 03/21/17 15:10 Dose: 0.5 mg Amlodipine Besylate (Norvasc) 5 mg PO DAILY [facility] Last Admin: 03/21/17 11:21 Dose: 5 mg Benzocaine/Menthol (Cepacol Sore Throat) 1 bassem MT Q2H PRN PRN Reason: Sore Throat Last Admin: 03/20/17 05:20 Dose: 1 bassem Clotrimazole (Lotrimin 1%) 0 gm TOP DAILY [facility] Last Admin: 03/21/17 11:20 Dose: 1 applic Guaifenesin/Dextromethorphan (Robitussin Dm) 5 ml PO Q6 [facility] Last Admin: 03/21/17 18:03 Dose: Not Given Home Med (Home Med) 1 unit TOP TID [facility] Last Admin: 03/21/17 18:05 Dose: Not Given Meropenem 1g/NS 100mL IVPB (Meropenem 1g/Ns 100ml Ivpb) 1 gm in 100 mls @ 100 mls/hr IVPB Q8 [facility] PRN Reason: Protocol Stop: 03/28/17 22:01 Last Admin: 03/21/17 13:33 Dose: 100 mls/hr Vancomycin HCl (Vancomycin 750 Mg In Ns) 750 mg in 250 mls @ 167 mls/hr IVPB Q12H [facility] PRN Reason: Protocol Stop: 03/28/17 16:16 Last Admin: 03/21/17 15:16 Dose: 167 mls/hr Insulin Human Regular (Humulin R Med) 0 units SC ACHS [facility] PRN Reason: Protocol Last Admin: 03/21/17 18:08 Dose: 3 units Metoprolol Succinate (Toprol Xl) 50 mg PO BRK [facility] Last Admin: 03/21/17 08:27 Dose: 50 mg Mirtazapine (Remeron) 15 mg PO DAILY [facility] Last Admin: 03/21/17 11:21 Dose: 15 mg Multivitamins (Thera Tab) 1 tab PO DAILY [facility] Last Admin: 03/21/17 11:21 Dose: 1 tab Pantoprazole Sodium (Protonix Inj) 40 mg IVP DAILY [facility] Last Admin: 03/21/17 11:21 Dose: 40 mg Potassium Chloride (K-Dur 20 Meq Er Tab) 20 meq PO BID [facility] Last Admin: 03/21/17 18:01 Dose: 20 meq Prednisone (Prednisone Tab) 5 mg PO DAILY [facility] Last Admin: 03/21/17 11:21 Dose: 5 mg Quetiapine Fumarate (Seroquel) 100 mg PO HS [facility] PRN Reason: Protocol Last Admin: 03/20/17 21:53 Dose: 100 mg Ramipril (Altace) 5 mg PO DAILY [facility] Last Admin: 03/21/17 11:20 Dose: 5 mg - Labs Labs: 03/21/17 17:00 03/21/17 07:10 - Constitutional Appears: Well - Head Exam Head Exam: ATRAUMATIC, NORMAL INSPECTION, NORMOCEPHALIC - Eye Exam Eye Exam: EOMI, Normal appearance, PERRL Pupil Exam: NORMAL ACCOMODATION, PERRL - ENT Exam ENT Exam: Mucous Membranes Moist, Normal Exam - Neck Exam Neck Exam: Full ROM, Normal Inspection. absent: Lymphadenopathy - Respiratory Exam Respiratory Exam: Clear to Ausculation Bilateral, NORMAL BREATHING PATTERN - Cardiovascular Exam Cardiovascular Exam: REGULAR RHYTHM, +S1, +S2. absent: Murmur - GI/Abdominal Exam GI & Abdominal Exam: Soft, Normal Bowel Sounds. absent: Tenderness - Rectal Exam Rectal Exam: NORMAL INSPECTION - Exam Exam: Circumcision, NORMAL INSPECTION External exam: NORMAL EXTERNAL EXAM Speculum exam: NORMAL SPECULUM EXAM Bimanual exam: NORMAL BIMANUAL EXAM - Extremities Exam Extremities Exam: Full ROM, Normal Capillary Refill, Normal Inspection. absent : Joint Swelling, Pedal Edema - Back Exam Back Exam: NORMAL INSPECTION - Neurological Exam Neurological Exam: Alert, Awake, CN II-XII Intact, Normal Gait, Oriented x3 - Psychiatric Exam Psychiatric exam: Normal Affect, Normal Mood - Skin Skin Exam: Dry, Intact, Normal Color, Warm Assessment and Plan (1) CHF exacerbation Status: Acute (2) HAP (hospital-acquired pneumonia) Status: Acute (3) Anemia Status: Acute (4) Dyspnea on exertion Status: Acute (5) Pneumonia Status: Acute (6) Urinary tract infection Status: Acute (7) Staphylococcus aureus bacteremia Status: Acute - Assessment and Plan (Free Text) Plan: ABX
[2017-03-22] MEDS: guaiFENesin DM 100 mg-10 mg/5 ml UD PO SCH ×3 (00:10→12:28)
[2017-03-22] MEDS: Vancomycin 750mg 750 MG/250 ML BAG IVPB SCH (04:02)
[2017-03-22] MEDS: Meropenem 1g/NS 100mL IVPB 1 GM/100 ML PIGGYBACK IVPB SCH ×2 (05:45→14:02)
[2017-03-22] MEDS: Insulin Reg-MEDIUM-Coverage SC SCH ×2 (08:07→12:28)
[2017-03-22 09:02] VITALS: BP 158/82; RESP 20; TEMP 98.2; O2SAT 98
[2017-03-22] MEDS: VOLTAREN 1% TOP SCH ×2 (09:25→13:58)
[2017-03-22] MEDS: Metoprolol Succinate 50 mg XL Tab PO SCH (09:39)
[2017-03-22] MEDS: Multivitamin Therapeutic Tab PO SCH (09:40)
[2017-03-22] MEDS: Potassium Chloride 20 mEq ER Tab PO SCH (09:40)
[2017-03-22] MEDS: Clotrimazole 1% Cream(30 gm) TOP SCH (09:41)
--- NOTE | 2017-03-22 15:18 | CP.PCM.PN ---
Subjective - Date & Time of Evaluation Date of Evaluation: 03/22/17 Time of Evaluation: 10:00 - Subjective Subjective: doing well Objective - Vital Signs/Intake and Output Vital Signs (last 24 hours): Temp Pulse Resp BP Pulse Ox 98.2 F 104 H 20 158/82 H 98 03/22/17 09:01 03/22/17 09:01 03/22/17 09:01 03/22/17 09:40 03/22/17 09:01 Intake and Output: 03/22/17 03/22/17 06:59 18:59 Intake Total 400 Output Total 500 Balance -100 - Medications Medications: Current Medications Acetaminophen (Tylenol 325mg Tab) 650 mg PO Q6H PRN PRN Reason: Pain, moderate (4-7) Alprazolam (Xanax) 0.5 mg PO HS [facility] PRN Reason: Protocol Last Admin: 03/21/17 21:27 Dose: 0.5 mg Alprazolam (Xanax) 0.5 mg PO TID PRN; Protocol PRN Reason: Anxiety Last Admin: 03/22/17 12:28 Dose: 0.5 mg Amlodipine Besylate (Norvasc) 5 mg PO DAILY [facility] Last Admin: 03/22/17 09:40 Dose: 5 mg Benzocaine/Menthol (Cepacol Sore Throat) 1 bassem MT Q2H PRN PRN Reason: Sore Throat Last Admin: 03/20/17 05:20 Dose: 1 bassem Clotrimazole (Lotrimin 1%) 0 gm TOP DAILY [facility] Last Admin: 03/22/17 09:41 Dose: 1 applic Guaifenesin/Dextromethorphan (Robitussin Dm) 5 ml PO Q6 [facility] Last Admin: 03/22/17 12:28 Dose: 5 ml Home Med (Home Med) 1 unit TOP TID [facility] Last Admin: 03/22/17 13:58 Dose: Not Given Cefazolin Sodium (Ancef 1gm In Ns) 1 gm in 100 mls @ 100 mls/hr IVPB Q8 [facility] PRN Reason: Protocol Stop: 04/06/17 22:01 Insulin Human Regular (Humulin R Med) 0 units SC ACHS [facility] PRN Reason: Protocol Last Admin: 03/22/17 12:28 Dose: 1 units Metoprolol Succinate (Toprol Xl) 50 mg PO BRK [facility] Last Admin: 03/22/17 09:39 Dose: 50 mg Mirtazapine (Remeron) 15 mg PO DAILY [facility] Last Admin: 03/22/17 09:40 Dose: 15 mg Multivitamins (Thera Tab) 1 tab PO DAILY [facility] Last Admin: 03/22/17 09:40 Dose: 1 tab Pantoprazole Sodium (Protonix Inj) 40 mg IVP DAILY [facility] Last Admin: 03/22/17 09:40 Dose: 40 mg Potassium Chloride (K-Dur 20 Meq Er Tab) 20 meq PO BID [facility] Last Admin: 03/22/17 09:40 Dose: 20 meq Prednisone (Prednisone Tab) 5 mg PO DAILY [facility] Last Admin: 03/22/17 09:40 Dose: 5 mg Quetiapine Fumarate (Seroquel) 100 mg PO HS [facility] PRN Reason: Protocol Last Admin: 03/21/17 21:26 Dose: 100 mg Ramipril (Altace) 5 mg PO DAILY [facility] Last Admin: 03/22/17 09:40 Dose: 5 mg - Labs Labs: 03/21/17 17:00 03/21/17 07:10 - Constitutional Appears: Well - Head Exam Head Exam: ATRAUMATIC, NORMAL INSPECTION, NORMOCEPHALIC - Eye Exam Eye Exam: EOMI, Normal appearance, PERRL Pupil Exam: NORMAL ACCOMODATION, PERRL - ENT Exam ENT Exam: Mucous Membranes Moist, Normal Exam - Neck Exam Neck Exam: Full ROM, Normal Inspection. absent: Lymphadenopathy - Respiratory Exam Respiratory Exam: Clear to Ausculation Bilateral, NORMAL BREATHING PATTERN - Cardiovascular Exam Cardiovascular Exam: REGULAR RHYTHM, +S1, +S2. absent: Murmur - GI/Abdominal Exam GI & Abdominal Exam: Soft, Normal Bowel Sounds. absent: Tenderness - Rectal Exam Rectal Exam: NORMAL INSPECTION - Exam Exam: Circumcision, NORMAL INSPECTION External exam: NORMAL EXTERNAL EXAM Speculum exam: NORMAL SPECULUM EXAM Bimanual exam: NORMAL BIMANUAL EXAM - Extremities Exam Extremities Exam: Full ROM, Normal Capillary Refill, Normal Inspection. absent : Joint Swelling, Pedal Edema - Back Exam Back Exam: NORMAL INSPECTION - Neurological Exam Neurological Exam: Alert, Awake, CN II-XII Intact, Normal Gait, Oriented x3 - Psychiatric Exam Psychiatric exam: Normal Affect, Normal Mood - Skin Skin Exam: Dry, Intact, Normal Color, Warm Assessment and Plan (1) CHF exacerbation Status: Acute (2) HAP (hospital-acquired pneumonia) Status: Acute (3) Anemia Status: Acute (4) Dyspnea on exertion Status: Acute (5) Pneumonia Status: Acute (6) Urinary tract infection Status: Acute (7) Staphylococcus aureus bacteremia Status: Acute - Assessment and Plan (Free Text) Plan: d/c vanco d/c mary use ancef for 15 more days weekly cbc [id number] sed rate crp
[2017-03-22 17:28] VITALS: PULSE 124
[2017-03-22] MEDS ORDERED: ceFAZolin 1 gm in NS 1 GM/100 ML BAG IVPB SCH (22:00)
== END 2017-03-22 17:24 | DRG 190 ==
LOC: ED 12:10 → ERH 14:15 → 3RSO 16:22
PROVIDERS: ADMIT Internal Medicine; ATTEND Internal Medicine
PROC: 02HV33Z Insertion of Infusion Device into Superior Vena Cava, Percutaneous Approach (ICD-10-PCS; principal; 2017-03-15)
PROC: 30233N1 Transfusion of Nonautologous Red Blood Cells into Peripheral Vein, Percutaneous Approach (ICD-10-PCS; 2017-03-20)
DX: J44.0 Chronic obstructive pulmonary disease with (acute) lower respiratory infection (principal); J18.9 Pneumonia, unspecified organism; I50.43 Acute on chronic combined systolic (congestive) and diastolic (congestive) heart failure; I11.0 Hypertensive heart disease with heart failure; I42.0 Dilated cardiomyopathy; E11.51 Type 2 diabetes mellitus with diabetic peripheral angiopathy without gangrene; N39.0 Urinary tract infection, site not specified; R78.81 Bacteremia; D64.9 Anemia, unspecified; M06.9 Rheumatoid arthritis, unspecified; I25.10 Atherosclerotic heart disease of native coronary artery without angina pectoris; M19.90 Unspecified osteoarthritis, unspecified site; K44.9 Diaphragmatic hernia without obstruction or gangrene; K21.9 Gastro-esophageal reflux disease without esophagitis; J44.1 Chronic obstructive pulmonary disease with (acute) exacerbation; E78.5 Hyperlipidemia, unspecified; N28.9 Disorder of kidney and ureter, unspecified; R79.82 Elevated C-reactive protein (CRP); R19.7 Diarrhea, unspecified; J02.9 Acute pharyngitis, unspecified; Y95 Nosocomial condition; Z79.4 Long term (current) use of insulin; Z86.73 Personal history of transient ischemic attack (TIA), and cerebral infarction without residual deficits; Z87.01 Personal history of pneumonia (recurrent); Z95.5 Presence of coronary angioplasty implant and graft; Z87.891 Personal history of nicotine dependence

== ENCOUNTER 2017-11-07 16:34 | Inpatient (IN) | payer MEDICARE, MEDICAID ==
[2017-11-07] MEDS ORDERED: Ipratropium 0.02% Inhal Soln (0.5 mg/2.5 ml) UD IH STA (17:09)
[2017-11-07] MEDS ORDERED: Albuterol 0.5% Inhal Sol (2.5 mg/0.5 ml) UD IH STA (17:09)
--- NOTE | 2017-11-07 17:09 | ED PDOC ---
Arrival/HPI - General Chief Complaint: Cough, Cold, Congestion Time Seen by Provider: 11/07/17 16:37 Historian: Patient, Family - History of Present Illness Narrative History of Present Illness (Text): 11/07/17 17:09 A 82 year old female, whose past medical history includes diabetes, hypertension , asthma, CAD, CHF and peripheral vascular disease, sent into the emergency department by PMD accompanied by family complaining of a productive cough for 1 week. Patient notes congestion and mild shortness of breath. She also has worsening lower extremity swelling. Patient denies any fever, chills, nausea, vomiting, abdominal pain, chest pain or any other complaints. PMD: Dr. Desouza Time/Duration: 1 week Symptom Course: Unchanged Context: Home Past Medical History - Provider Review Nursing Documentation Reviewed: Yes - Infectious Disease Hx of Infectious Diseases: None - Tetanus Immunization Tetanus Immunization: Unknown - Cardiac Hx Cardiac Disorders: Yes Hx Hypertension: Yes - Pulmonary Hx Asthma: Yes Hx Pneumonia: Yes - Neurological HX Cerebrovascular Accident: Yes - HEENT Hx HEENT Disorder: Yes (eyeglasses) - Renal Hx Renal Disorder: No - Endocrine/Metabolic Hx Endocrine Disorders: Yes Hx Diabetes Mellitus Type 2: Yes - Hematological/Oncological Hx Blood Disorders: Yes Hx Anemia: Yes - Integumentary Hx Dermatological Disorder: Yes Other/Comment: multiple skin discolorations ble - Musculoskeletal/Rheumatological Hx Musculoskeletal Disorders: Yes Hx Arthritis: Yes (hands) - Gastrointestinal Hx Gastrointestinal Disorders: Yes (hiatal hernia) Hx Gastroesophageal Reflux: Yes - Genitourinary/Gynecological Hx Genitourinary Disorders: Yes Hx Urinary Tract Infection: Yes - Psychiatric Hx Anxiety: Yes Hx Substance Use: No - Surgical History Hx Cardiac Catheterization: Yes Hx Coronary Stent: Yes Other/Comment: herniated disks - - Anesthesia Hx Anesthesia: Yes - Suicidal Assessment Feels Threatened In Home Enviroment: No Family/Social History - Physician Review Nursing Documentation Reviewed: Yes Family/Social History: No Known Family HX Smoking Status: Never Smoked Hx Alcohol Use: No Hx Substance Use: No Allergies/Home Meds Allergies/Adverse Reactions: Allergies No Known Allergies Allergy (Verified 11/07/17 16:38) Home Medications: Home Meds Medication Instructions Recorded Confirmed Alprazolam [Xanax] 0.5 mg PO HS 03/12/17 11/07/17 Carvedilol [Coreg] 25 mg PO DAILY 11/07/17 11/07/17 Donepezil [Aricept] 10 mg PO DAILY 11/07/17 11/07/17 Leflunomide [Arava] 20 mg PO DAILY 11/07/17 11/07/17 Montelukast [Singulair] 10 mg PO DAILY 11/07/17 11/07/17 Prasugrel HCl [Prasugrel HCl] 5 mg PO DAILY 11/07/17 11/07/17 Rosuvastatin Calcium [Crestor] 20 mg PO DAILY 11/07/17 11/07/17 Torsemide [Demadex] 10 mg PO DAILY 11/07/17 11/07/17 metFORMIN [glucOPHAGE] 500 mg PO BID 11/07/17 11/07/17 Review of Systems - Physician Review All systems were reviewed & negative as marked: Yes - Review of Systems Constitutional: absent: Fevers, Night Sweats ENT: Sinus Congestion Respiratory: SOB, Cough, Sputum Cardiovascular: Edema. absent: Chest Pain Gastrointestinal: absent: Abdominal Pain, Nausea, Vomiting Physical Exam Vital Signs Reviewed: Yes Vital Signs Temp Pulse Resp BP Pulse Ox 11/07/17 19:14 99 H 18 164/83 H 97 11/07/17 18:42 100 H 18 159/77 H 97 11/07/17 18:35 99 H 18 171/74 H 97 11/07/17 17:53 98 H 19 173/89 H 100 11/07/17 17:31 187/69 H 11/07/17 16:52 98.6 F 91 H 18 188/82 H 98 Temperature: Afebrile Blood Pressure: Hypertensive Pulse: Tachycardic Respiratory Rate: Normal Appearance: Positive for: Well-Appearing, Non-Toxic, Comfortable Pain Distress: None Mental Status: Positive for: Alert and Oriented X 3 - Systems Exam Head: Present: Atraumatic, Normocephalic Pupils: Present: PERRL Extroacular Muscles: Present: EOMI Conjunctiva: Present: Normal Mouth: Present: Moist Mucous Membranes Nose (Internal): Present: Other (Nasal congestion) Neck: Present: Normal Range of Motion Respiratory/Chest: Present: Good Air Exchange, Wheezes (trace), Rales ( bilaterally), Rhonchi. No: Respiratory Distress, Accessory Muscle Use Cardiovascular: Present: Regular Rate and Rhythm, Normal S1, S2. No: Murmurs Abdomen: Present: Normal Bowel Sounds. No: Tenderness, Distention, Peritoneal Signs Back: Present: Normal Inspection Upper Extremity: Present: Normal Inspection. No: Cyanosis, Edema Lower Extremity: Present: Edema (+2 pitting edema bilaterally), NORMAL PULSES. No: CALF TENDERNESS Neurological: Present: GCS=15, CN II-XII Intact, Speech Normal Skin: Present: Warm, Dry, Normal Color. No: Rashes Psychiatric: Present: Alert, Oriented x 3, Normal Insight, Normal Concentration Medical Decision Making ED Course and Treatment: 11/07/17 17:09 Impression: A 82 year old female with productive cough, congestion and mild shortness of breath Differential Diagnosis included but are not limited to: PNA vs. CHF Plan: -- Chest xray -- EKG -- Labs -- Rapid flu -- Blood and Urine culture -- Urinalysis -- Albuterol, Lasix, Atrovent and Nitroglycerin -- Reassess and disposition Progress Notes: EKG shows NSR at [address] changes in anterior leads, with no changes compared to prior on 03/20/17. Interpreted by me. Report Date : 11/07/2017 17:51:03 Procedure: Chest xray Dictator : Janie Nickerson MD IMPRESSION: Findings are most compatible with mild congestive heart failure. No evidence of lobar pneumonia. 11/07/17 19:36 Patients' CXR consistent with CHF. BNP elevated. Troponin 0.11. Patient improving but still has symptoms. Lungs improved with minimal crackles. Nitropaste is on chest wall. Discussed cased with Dr. Desouza for placement on observation for chf to telemetry obs. He requested Dr. Butcher for Cardio. 11/07/17 19:38 UA positive for UTI. - Lab Interpretations Lab Results: 11/07/17 17:17 11/07/17 18:17 Lab Results 11/07/17 18:17: Sodium 135, Chloride 105, Potassium 4.7, Carbon Dioxide 22, Anion Gap 13, BUN 37 H, Creatinine 1.2, Est GFR ( Amer) 52, Est GFR (Non- Af Amer) 43, Random Glucose 186 H, Calcium 9.5, Total Bilirubin 0.4, AST 29, ALT 24, Alkaline Phosphatase 64, Lactate Dehydrogenase 669, Total Creatine Kinase 64, Troponin I 0.11 D, NT-Pro-B Natriuret Pep 70363 H, Total Protein 6.5 , Albumin 3.2, Globulin 3.3, Albumin/Globulin Ratio 1.0 L 11/07/17 18:17: PT Pending, INR Pending, APTT 30.4 11/07/17 18:00: Urine Color Yellow, Urine Appearance Sl cloudy, Urine pH 6.0, Ur Specific [place] 1.025, Urine Protein 100 H, Urine Glucose (UA) Negative, Urine Ketones Negative, Urine Blood Moderate H, Urine Nitrate Negative, Urine Bilirubin Negative, Urine Urobilinogen 0.2, Ur Leukocyte Esterase Negative, Urine RBC Tntc, Urine WBC 20 - 25, Ur Epithelial Cells 6 - 8, Urine Bacteria Many 11/07/17 17:49: Influenza Typ A,B (EIA) Negative for flu a/b 11/07/17 17:17: pO2 103 H, VBG pH 7.39, VBG pCO2 36.0 L, VBG HCO3 21.8, VBG Total CO2 22.9, VBG O2 Sat (Calc) 98.1 H, VBG Base Excess -2.6 L, VBG Potassium 8.3 H*, Sodium 129.0 L, Chloride 107.0, Glucose 207 H, Lactate 1.5, FiO2 21.0, Venous Blood Potassium 8.3 H* 11/07/17 17:17: WBC 8.7, RBC 3.22 L, Hgb 9.6 L, Hct 30.3 L, MCV 94.1, MCH 29.8, MCHC 31.7, RDW 19.5 H, Plt Count 104 L, MPV 10.5, Gran % 84.9 H, Lymph % (Auto) 11.1 L, [place] % (Auto) 3.8, Eos % (Auto) 0.1 L, Baso % (Auto) 0.1, Gran # 7.37 H , Lymph # (Auto) 1.0 L, [place] # (Auto) 0.3, Eos # (Auto) 0.0, Baso # (Auto) 0.01 I have reviewed the lab results: Yes - RAD Interpretation Radiology Orders: 11/07/17 17:09 CHEST PORTABLE [RAD] Stat - Medication Orders Current Medication Orders: Ceftriaxone Sodium (Rocephin 1 Gram Ivpb) 1 gm in 100 mls @ 200 mls/hr IVPB STAT STA PRN Reason: Protocol Stop: 11/07/17 19:36 Last Admin: 11/07/17 19:33 Dose: 200 mls/hr eMAR Start Stop Document 11/07/17 19:33 SE (Rec: 11/07/17 19:33 [facility] [id number][place] Intravenous Solution Start Date 11/07/17 Start Time 19:33 Discontinued Medications Albuterol Sulfate (Albuterol 0.5% Inhal Stephanie (2.5 Mg/0.5 Ml) Ud) 2.5 mg IH STAT STA Stop: 11/07/17 17:10 Last Admin: 11/07/17 17:31 Dose: 2.5 mg Furosemide (Lasix) 40 mg IVP STAT STA Stop: 11/07/17 17:10 Last Admin: 11/07/17 17:31 Dose: 40 mg MAR Blood Pressure Document 11/07/17 17:31 SE (Rec: 11/07/17 17:37 [facility] [id number]) Blood Pressure Blood Pressure (100/60-150/90 mm Hg) 187/69 IVP Administration Document 11/07/17 17:31 SE (Rec: 11/07/17 17:37 [facility] [id number]) Charges for Administration # of IVP Administrations 1 Ipratropium [place] (Atrovent) 0.5 mg IH STAT STA Stop: 11/07/17 17:10 Last Admin: 11/07/17 17:31 Dose: 0.5 mg Nitroglycerin (Nitro-Bid 2% Oint) 1 ea TOP STAT STA Stop: 11/07/17 17:12 Last Admin: 11/07/17 17:31 Dose: 1 ea - Scribe Statement The provider has reviewed the documentation as recorded by the Scribe Thalia Montez Provider Scribe Attestation: All medical record entries made by the Scribe were at my direction and personally dictated by me. I have reviewed the chart and agree that the record accurately reflects my personal performance of the history, physical exam, medical decision making, and the department course for this patient. I have also personally directed, reviewed, and agree with the discharge instructions and disposition. Disposition/Present on Arrival - Present on Arrival Any Indicators Present on Arrival: Yes History of DVT/PE: No History of Uncontrolled Diabetes: Yes Urinary Catheter: No History of Decub. Ulcer: No History Surgical Site Infection Following: None - Disposition Have Diagnosis and Disposition been Completed?: Yes Diagnosis: CHF exacerbation, Urinary tract infection Disposition: HOSPITALIZED Disposition Time: 19:38 Patient Plan: Admission Condition: FAIR Discharge Instructions (ExitCare): Heart Failure (ED) Forms: [email or web address] (Martiniquais)
[2017-11-07] MEDS ORDERED: Nitroglycerin 2% Ointment Foilpak UD TOP STA (17:11)
[2017-11-07 17:41] LABS: VENOUS BLOOD GAS BASE EXCESS -2.6 mmol/L (0.0-2.0); VENOUS BLOOD GAS PO2 103 mm/Hg (30-55); VENOUS BLOOD PH 7.39 (7.32-7.43)
[2017-11-07 17:49] LABS: BASO # 0.01 K/mm3 (0.0-2.0); BASO % 0.1 % (0.0-3.0); EOS % 0.1 % (1.5-5.0); GRAN # 7.37 (1.4-6.5); GRAN % 84.9 % (50.0-68.0); HEMOGLOBIN 9.6 g/dL (12.0-16.0); LYMPH % 11.1 % (22.0-35.0); MEAN CELL VOLUME 94.1 fl (80.0-105.0); MEAN CORPUSCULAR HEMOGLOBIN 29.8 pg (25.0-35.0); MEAN CORPUSCULAR HGB CONC 31.7 g/dl (31.0-37.0); MEAN PLATELET VOLUME 10.5 fl (7.0-11.0); MONO # 0.3 (0.1-0.6); MONO % 3.8 % (1.0-6.0); RBC 3.22 10^6/uL (3.5-6.1); RED CELL DISTRIBUTION WIDTH 19.5 % (11.5-14.5); WHITE BLOOD COUNT 8.7 10^3/ul (4.5-11.0)
--- NOTE | 2017-11-07 17:52 | RAD ---
HISTORY: cough r/o pna r/o CHF COMPARISON: 03/20/2017 FINDINGS: LUNGS: There is moderate pulmonary venous congestion and mild interstitial pulmonary edema. There is bibasilar atelectasis. PLEURA: Suspect small pleural effusions, no pneumothorax apparent. CARDIOVASCULAR: There is mild cardiomegaly. OSSEOUS STRUCTURES: No significant abnormalities. VISUALIZED UPPER ABDOMEN: Normal. OTHER FINDINGS: Retrocardiac opacity is most compatible with hiatal hernia. IMPRESSION: Findings are most compatible with mild congestive heart failure. No evidence of lobar pneumonia.
[2017-11-07 18:47] LABS: URINE BILIRUBIN NEGATIVE (NEGATIVE); URINE BLOOD MODERATE (NEGATIVE); URINE GLUCOSE (UA) NEGATIVE (NEGATIVE); URINE LEUKOCYTE ESTERASE NEGATIVE Leu/uL (NEGATIVE); URINE NITRATE NEGATIVE (NEGATIVE); URINE PROTEIN 100 mg/dL (<30 mg/dL); URINE UROBILINOGEN 0.2 E.U./dL (<1 E.U./dL)
[2017-11-07 18:49] LABS: URINE COLOR YELLOW (YELLOW)
[2017-11-07 18:50] LABS: URINE APPEARANCE SL CLOUDY (CLEAR)
[2017-11-07 18:59] LABS: URINE BACTERIA MANY (NEG); URINE RBC TNTC /hpf (0-2); URINE WBC 20 - 25 /hpf (0-6)
[2017-11-07] MEDS ORDERED: cefTRIAXone 1 gm 1 GM/100 ML BAG IVPB STA (19:07)
[2017-11-07 19:14] LABS: ALBUMIN 3.2 g/dL (3.0-4.8); CALCIUM 9.5 mg/dL (8.4-10.5)
[2017-11-07 19:25] LABS: TROPONIN I 0.11 ng/mL
[2017-11-07 19:28] LABS: PARTIAL THROMBOPLASTIN TIME 30.4 Seconds (25.1-36.5)
[2017-11-07 19:38] LABS: INR 1.01 (0.93-1.08); PROTHROMBIN TIME 11.5 SECONDS (9.4-12.5)
[2017-11-07 23:26] VITALS: BMI 33.0
[2017-11-08 08:26] LABS: CALCIUM 9.6 mg/dL (8.4-10.5)
[2017-11-08 08:38] LABS: TROPONIN I 0.08 ng/mL
[2017-11-08] MEDS: Potassium Chloride 20 mEq ER Tab PO SCH ×2 (09:20→17:25)
[2017-11-08] MEDS: cefTRIAXone 1 gm 1 GM/100 ML BAG IVPB SCH (09:24)
--- NOTE | 2017-11-08 09:54 | CON ---
DATE: 11/08/2017 REASON FOR CONSULTATION: Shortness of breath. HISTORY OF PRESENT ILLNESS: This is an 82-year-old woman, a limited historian, who is admitted through the emergency room with increasing shortness of breath observed by her family with cough and edema, but no chest pain, syncope, presyncope, lightheadedness, dizziness or vertigo. No hemoptysis, abdominal pain, nausea, vomiting, diarrhea, constipation or melena. She is a limited historian. We have seen her on prior hospitalizations. She has coronary artery disease with a remote coronary stent. She has COPD, hypertension, diabetes, rheumatoid arthritis, anemia, prior stroke, history of dementia. MEDICATIONS: At the time of admission, her medications included Arava, Aricept, Coreg, Crestor, Demadex, potassium, Effient, Remeron, Seroquel, Singulair, multivitamin, Tylenol, Xanax, metformin, prednisone. ALLERGIES: THERE ARE NO KNOWN MEDICATION ALLERGIES. SOCIAL HISTORY: She lives at home with her family. She does not smoke cigarettes. She does not drink alcohol. FAMILY HISTORY: Not available. REVIEW OF SYSTEMS: Limited to the information in the chart. PHYSICAL EXAMINATION: GENERAL: She is an elderly woman, lying in bed on telemetry, in no acute distress. VITAL SIGNS: She is in sinus rhythm, 80 beats per minute; afebrile; 173/87; respirations 16 to 20; O2 sat 96-98% on room air. HEENT: Reveals no neck vein distention, thyromegaly or carotid bruits. Mucous membranes moist. Conjunctivae pink. NECK: Supple. LUNGS: Lung curiel are clear. HEART: Examination of the heart revealed normal first and second heart sounds. There is a soft systolic murmur along the left sternal border. ABDOMEN: Benign. No mass, organomegaly, tenderness, rebound or guarding. EXTREMITY: Reveals no cyanosis or clubbing. There is moderate lower extremity edema. NEUROLOGIC: Awake and alert. PSYCHIATRIC: Alert. LABORATORY AND IMAGING: A chest x-ray reveals a portable study. Mild congestive heart failure. EKG, regular sinus rhythm. Left axis deviation. Poor R-wave progression. No acute ST changes. White count 8700, hemoglobin 9.6, hematocrit 30.3, platelet count 104,000. PT, INR, PTT unremarkable. Blood gases are noted. Electrolytes: BUN, creatinine unremarkable. Creatinine this morning is 1.3. LFTs unremarkable. CK 64, troponin 0.11 and 0.08. BNP 19,000. Urinalysis noted. Influenza negative for A and B. ASSESSMENT: Marija Sullivan is an 82-year-old woman with shortness of breath, cough and congestion, mild congestive heart failure on her chest x-ray. She has responded to treatment and has improved this morning. She got intravenous Lasix and nitroglycerin paste. She is also getting Aricept, respiratory treatments, Coreg, Effient, potassium, prednisone, Remeron, Rocephin, Tylenol, Xanax, Zestril. I will review her old records. She can be out of bed to a chair. I would discontinue the intravenous Lasix at this point and resume her Demadex p.o. She was cultured. She is on antibiotics. I will monitor inputs and outputs. Check stool for occult blood. I will follow along with you. I will make additional recommendations based on her clinical course. Overall, a conservative course of cardiac care was anticipated. We could consider discontinuation of Effient, which I will discuss with you. aDvide Butcher MD MTDD
--- NOTE | 2017-11-08 10:21 | CARD ---
APPROVED REPORT EKG Measurement Heart [id number] MI [id number] <Conclusion> Normal sinus rhythm Left axis deviation PRWP No change except the rate is slower
--- NOTE | 2017-11-08 11:00 | HP ---
HISTORY OF PRESENT ILLNESS: An 82-year-old white female, admitted on 11/07/2017. The patient with history of CAD, COPD, dementia, peripheral vascular disease. The patient had been having increasing cough and shortness of breath over the last several days with fatigue and change in mental status, seen in my office. Chest x-ray at my office revealed bilateral infiltrates with congestive heart failure. The patient initially refused admission to the hospital, but was brought by her family to the hospital last night. Repeat x-ray showed congestive heart failure with a BNP of 19,000. Normal white count. Afebrile. Blood pressure 166/90. Elevated BUN and creatinine at 38 and 1.3. Hemoglobin 9.6, which is stable. She does have a history of rheumatoid arthritis, on immunosuppressants. PHYSICAL EXAMINATION: GENERAL: Shows a poorly-developed, thin, female, in mild respiratory distress. HEENT: Essentially within normal limits. HEART: Positive S3 and S4. CHEST: Shows decreased breath sounds with rhonchi at both bases. ABDOMEN: Benign. EXTREMITIES: Without cyanosis, clubbing or edema. IMPRESSION: Congestive heart failure, possible early pneumonia in an immunocompromised elderly female with a history of chronic systolic, diastolic heart failure. This is acute systolic heart failure and superimposed pneumonia. Juan Desouza MD
[2017-11-08] MEDS: guaiFENesin DM 100 mg-10 mg/5 ml UD PO PRN (11:08)
[2017-11-08] MEDS: Insulin Reg-LOW-Coverage SC SCH ×4 (12:11→22:11)
[2017-11-08] MEDS: Albuterol-Ipratrop 3 mg / 0.5 (3 ml) UD IH SCH ×2 (13:39→20:55)
[2017-11-08] MEDS: MethylPREDNISolone 40 mg Vial IVP SCH (22:14)
[2017-11-09] MEDS: Albuterol-Ipratrop 3 mg / 0.5 (3 ml) UD IH SCH ×4 (01:30→20:00)
--- NOTE | 2017-11-09 03:00 | CON ---
DATE: 11/08/2017 PULMONARY CONSULTATION REFERRING PHYSICIAN: Juan Desouza MD. REASON FOR CONSULT: Cough, shortness of breath, heart failure. HISTORY OF PRESENT ILLNESS: This is an 82-year-old female with past medical history significant for cardiomyopathy with compromised LV function with pulmonary hypertension, also has a history of childhood asthma, sopped smoking many years ago, history of coronary artery disease and coronary stent, hypertension, diabetes, has a rheumatoid arthritis, anemia, history of stroke, comes into emergency room with cough, shortness of breath. Diuretics were given. Has a high proBNP. Presently, sitting up in a hospital bed with a cough, sputum production. Son is at bedside. Also complaining of bilateral knee pain. The patient was seen by Dr. Desouza and Dr. Butcher today. PAST MEDICAL HISTORY: As per history of present illness. ALLERGIES: NONE KNOWN. SOCIAL HISTORY: Stopped smoking many years ago. Denies any alcohol use. FAMILY HISTORY: No significant cardiopulmonary disease reported. MEDICATIONS: She is on Aricept 10 mg daily, Coreg 25 mg daily, Demadex 10 mg daily, DuoNeb q. 6 hours, Effient 5 mg daily, insulin coverage, potassium 20 mEq twice a day, prednisone 5 mg daily, Remeron 50 mg at bedtime, Robitussin 5 mL q. 4 hours p.r.n., Rocephin 1 g IV daily, Tylenol p.r.n., Xanax 0.5 mg at bedtime. REVIEW OF SYSTEMS: No headache, no rhinitis. Has a cough, sputum production, shortness of breath. No chest pain. No nausea. No vomiting. No diarrhea. Does have a bilateral knee pain. PHYSICAL EXAMINATION: GENERAL: Lying in the bed with cough and shortness of breath. VITAL SIGNS: Temp is 98, heart rate is 99, respiratory rate is 22, blood pressure 158/78, pulse ox 97% on room air. HEENT: Moist mucous membrane. Crowded airway. Mallampati score is 4. LUNGS: Have scattered rhonchi and wheezing. HEART: S1 and S2. ABDOMEN: Soft, nontender. No organomegaly. EXTREMITIES: Does have a knee tenderness. NEUROLOGIC: Awake, alert. Follows simple command. LABORATORY DATA: Shows hemoglobin 9.6, hematocrit 30.3, WBC 8.7, platelet is 104. INR 1.01, PTT 30. Has VBG done, which showed pH 7.39, pCO2 of 36, O2 of 103. This is on room air. Sodium 138, potassium 4.2, chloride 105, bicarbonate 26, BUN 38, creatinine 1.3, glucose 147, calcium is 9.6. ProBNP is at 19,000. Troponin 0.08. Urinalysis shows wbc 20-25, rbc too numerous to count. Influenza A and B is negative. Microbiology: Blood culture, there is no growth. Chest x-ray done shows congestion, both lung curiel. She has a CAT scan of the chest done in 02/2017, which shows cavitary lesion in the left upper lobe posteriorly, most likely infectious with inflammatory etiology. Also had echocardiogram done in 02/2017, which suggested right ventricle systolic pressure is 58. Left ventricle ejection fraction is compromised and decreased. IMPRESSION AND PLAN: Chronic obstructive lung disease, also there is a component of heart failure with pulmonary hypertension and cardiac systolic dysfunction, history of coronary artery disease, history of coronary stent, rheumatoid arthritis with knee pain. Spoke to the patient's son at the bedside. All the questions answered. Agree with Dr. Desouza's treatment. We will continue inhaled bronchodilator. Discontinue prednisone. Add Solu-Medrol 40 mg q. 8 hours. Continue antibiotics. We will get CT scan of the chest to assure the old cavitary lesion is resolved. May need to repeat echocardiogram, assess right ventricle and left ventricle function. We will suggest increasing diuretics. We will place Lidoderm patch at both knees, pain management for degenerative joint disease. Thank you and we will follow with you. Lupillo Morgan MD
[2017-11-09] MEDS: MethylPREDNISolone 40 mg Vial IVP SCH ×3 (06:47→22:36)
--- NOTE | 2017-11-09 08:21 | CP.PCM.PN ---
Subjective - Date & Time of Evaluation Date of Evaluation: 11/09/17 Time of Evaluation: 07:00 - Subjective Subjective: Stable on 2R. No CP or SOB. I spoke with her bedside nurse this AM. PE: Lungs: rhonchi Cor.: S1S2 Abd.: soft Ext.: no edema I/O= 360/900 recorded Labs noted: Cr.= 1.4, BUN= 44, K+= 4.4 BC X2 NG at [address] Chest Pending Objective - Vital Signs/Intake and Output Vital Signs (last 24 hours): Temp Pulse Resp BP Pulse Ox 98.6 F 95 H 20 136/80 97 11/09/17 06:00 11/09/17 06:00 11/09/17 06:00 11/09/17 06:00 11/09/17 06:00 Intake and Output: 11/09/17 11/09/17 06:59 18:59 Intake Total 360 Output Total 900 Balance -540 - Medications Medications: Current Medications Acetaminophen (Tylenol 325mg Tab) 650 mg PO Q4H PRN PRN Reason: Fever >100.5 F Acetaminophen (Tylenol 325mg Tab) 650 mg PO Q6H PRN PRN Reason: Pain, moderate (4-7) Last Admin: 11/08/17 17:23 Dose: 650 mg Albuterol/Ipratropium (Duoneb 3 Mg/0.5 Mg (3 Ml) Ud) 3 ml IH [id number] [facility] Last Admin: 11/09/17 07:30 Dose: 3 ml Alprazolam (Xanax) 0.5 mg PO HS [facility] PRN Reason: Protocol Last Admin: 11/08/17 22:14 Dose: 0.5 mg Carvedilol (Coreg) 25 mg PO DAILY [facility] Last Admin: 11/08/17 09:20 Dose: 25 mg Donepezil HCl (Aricept) 10 mg PO DAILY [facility] Last Admin: 11/08/17 09:20 Dose: 10 mg Guaifenesin/Dextromethorphan (Robitussin Dm) 5 ml PO Q4H PRN PRN Reason: Cough Last Admin: 11/08/17 11:08 Dose: 5 ml Ceftriaxone Sodium (Rocephin 1 Gram Ivpb) 1 gm in 100 mls @ 100 mls/hr IVPB DAILY [facility] PRN Reason: Protocol Last Admin: 11/08/17 09:24 Dose: 100 mls/hr Insulin Human Regular (Humulin R Low) 0 units SC ACHS [facility] PRN Reason: Protocol Last Admin: 11/08/17 22:11 Dose: Not Given Lidocaine (Lidoderm) 1 ea TD DAILY [facility] Methylprednisolone (Solu-Medrol) 40 mg IVP Q8 [facility] Last Admin: 11/09/17 06:47 Dose: 40 mg Mirtazapine (Remeron) 15 mg PO DAILY [facility] Last Admin: 11/08/17 09:24 Dose: 15 mg Potassium Chloride (K-Dur 20 Meq Er Tab) 20 meq PO BID [facility] Last Admin: 11/08/17 17:25 Dose: 20 meq Prasugrel (Effient) 5 mg PO DAILY [facility] Last Admin: 11/08/17 09:21 Dose: 5 mg Torsemide (Demadex) 20 mg PO DAILY [facility] - Labs Labs: 11/09/17 06:02 PT 11.5 SECONDS (9.4-12.5) 11/07/17 18:17 INR 1.01 (0.93-1.08) 11/07/17 18:17 APTT 30.4 Seconds (25.1-36.5) 11/07/17 18:17 Assessment and Plan - Assessment and Plan (Free Text) Assessment: Dyspnea/Cough R/O CHF/ R/O pneumonia H/O cavitary lung lesion on CT CAD/Remote PCI HBP Diabetes RA Anemia CVA Dementia Echo 03/10: Mild LVD, Mod. TR and PH Plan: Await CT Chest interp. AB, Resp. Tx. As per Pulm and Dr. Deo SHELTON as deyvi. Can D/C Effient Will follow. Conservative cardiac care anticipated.
--- NOTE | 2017-11-09 10:02 | CT ---
PROCEDURE: CT Chest without contrast HISTORY: h/o cavity COMPARISON: Chest CT without contrast 03/17/2017 TECHNIQUE: Contiguous axial images were obtained through the chest without intravenous contrast enhancement. Sagittal and coronal reconstructions were performed. Radiation dose (DLP): 185.69 mGy-cm. This CT exam was performed using one or more of the following dose reduction techniques: Automated exposure control, adjustment of the mA and/or kV according to patient size, and/or use of iterative reconstruction technique. FINDINGS: LUNGS: Trace bilateral basilar dependent atelectasis appears chronic or recurrent. The previously described 13 mm left-sided pulmonary cavitary lesion has apparently resolved as well as a few smaller foci at the left base. Trace fibrotic changes seen at the right greater than left lung bases with no definite alveolitis appreciated bilaterally. MEDIASTINUM: Unremarkable thoracic aorta. No aneurysm. Normal sized heart. Extensive coronary artery calcifications are again identified. Prior PICC catheter now not identified. Main pulmonary artery unremarkable. No vascular congestion. Shotty, stable predominate peritracheal lymph nodes identified. A moderate hiatal hernia is again appreciated with limited gas seen minimally distending the upper and mid esophagus. PLEURA: No pleural fluid. No pneumothorax. BONES: No fracture. No destructive lesion. UPPER ABDOMEN: Grossly unremarkable. OTHER FINDINGS: None. IMPRESSION: 1. Apparent resolution of small cavitary lesion superior segment left lower lobe as well as a few subcentimeter similar foci at the left base lower lobe. 2. No interval infiltrate or pneumothorax. Persistent or recurrent limited bilateral basilar dependent atelectasis. 3. Stable shotty mediastinal lymph nodes. Moderate hiatal hernia reiterated.
--- NOTE | 2017-11-09 10:13 | PN ---
DATE: SUBJECTIVE: An 82-year-old female, admitted to the hospital with congestive cardiomyopathy, shortness of breath. The patient still has rhonchi and rales at all lung curiel. She is tolerating diet well. She is afebrile. Blood pressure is 136/80. BUN and creatinine are elevated at 44 and 1.4. She is still on diuretics afterload reduction. We will start physical therapy and occupational therapy, out of bed to chair. Continue heart failure protocol. Juan Desouza MD
[2017-11-09] MEDS: Insulin Reg-LOW-Coverage SC SCH ×3 (10:17→17:52)
[2017-11-09] MEDS: Potassium Chloride 20 mEq ER Tab PO SCH ×2 (10:18→17:53)
[2017-11-09] MEDS: Lidocaine 5% Patch TD SCH (10:18)
[2017-11-09] MEDS: cefTRIAXone 1 gm 1 GM/100 ML BAG IVPB SCH (10:27)
[2017-11-09] MEDS: guaiFENesin DM 100 mg-10 mg/5 ml UD PO PRN ×2 (14:16→22:41)
--- NOTE | 2017-11-10 00:22 | PN ---
DATE: 11/09/2017 PULMONARY PROGRESS NOTE REFERRING PHYSICIAN: Juan Desouza MD. SUBJECTIVE: She is lying in the bed, head at 45 degrees. Still has cough, shortness of breath, but better. No nausea. No vomiting. No diarrhea, leg pain, leg swelling. OBJECTIVE: GENERAL: In no acute distress. VITAL SIGNS: Temp is 99, heart rate is 88, respiratory rate is 20, blood pressure 168/90, pulse ox 97% on room air. HEENT: Moist mucous membrane. No ulcer or thrush noted. NECK: Supple. No JVD. LUNGS: Have scattered rhonchi, a few wheezing. HEART: S1 and S2. ABDOMEN: Soft, nontender. No organomegaly. EXTREMITIES: No edema. NEUROLOGIC: Awake, alert. Follows simple command. MEDICATIONS: She is on Aricept 10 mg daily, Coreg 25 mg daily, Demadex 20 mg daily, DuoNeb q. 6 hours, Effient 5 mg daily, insulin coverage, potassium 20 mEq twice a day, lidocaine patch at affected area, Remeron 50 mg at bedtime, Robitussin DM q. 4 hours p.r.n., Rocephin 1 g IV daily, Solu-Medrol 40 mg q. 8 hours, Tylenol p.r.n., also Xanax 0.5 mg At bedtime. LABORATORY DATA: Reviewed. Sodium 142, potassium 4.4, chloride 106, bicarbonate 26, BUN 44, creatinine 1.4, glucose 195, calcium 9.0. ProBNP 7420. Microbiology: Blood culture has been negative. CAT scan of the chest done yesterday evening, it shows resolution of small cavitary lesion from the superior segment of the left lower lobe as well as few subcentimeter similar foci at the left base lower lobe. There is some basilar atelectasis. Stable shotty mediastinal lymph node. IMPRESSION AND PLAN: Chronic obstructive lung disease, congestive heart failure, pulmonary hypertension, coronary artery disease, history of coronary stent, rheumatoid arthritis, bilateral knee discomfort. Pulmonary point of view, doing a little better. We will decrease Solu-Medrol. Continue diuretics, bronchodilator, gastric prophylaxis, deep venous thrombosis prophylaxis. Follow up labs in the morning. Thank you and we will follow with you. Lupillo Morgan MD [facility] # [id number]
[2017-11-10] MEDS: Albuterol-Ipratrop 3 mg / 0.5 (3 ml) UD IH SCH ×3 (01:53→14:00)
[2017-11-10 07:29] LABS: ALB/GLOB RATIO 0.8 (1.1-1.8); ALBUMIN 2.9 g/dL (3.0-4.8); CALCIUM 7.8 mg/dL (8.4-10.5)
--- NOTE | 2017-11-10 07:56 | CP.PCM.PN ---
Subjective - Date & Time of Evaluation Date of Evaluation: 11/10/17 Time of Evaluation: 07:00 - Subjective Subjective: Stable on 2R. No CP or SOB. I spoke with her bedside nurse this AM. PE: Lungs: rhonchi Cor.: S1S2 Abd.: soft Ext.: no edema Labs noted: Cr.= 1.3, K+= 3.9 BC X2 NG at [address] Chest noted Objective - Vital Signs/Intake and Output Vital Signs (last 24 hours): Temp Pulse Resp BP Pulse Ox 97.9 F 73 18 159/84 H 99 11/10/17 05:35 11/10/17 05:35 11/10/17 05:35 11/10/17 05:35 11/10/17 05:35 Intake and Output: 11/10/17 11/10/17 06:59 18:59 Intake Total 240 Balance 240 - Medications Medications: Current Medications Acetaminophen (Tylenol 325mg Tab) 650 mg PO Q4H PRN PRN Reason: Fever >100.5 F Acetaminophen (Tylenol 325mg Tab) 650 mg PO Q6H PRN PRN Reason: Pain, moderate (4-7) Last Admin: 11/08/17 17:23 Dose: 650 mg Albuterol/Ipratropium (Duoneb 3 Mg/0.5 Mg (3 Ml) Ud) 3 ml IH [id number] [facility]NER Last Admin: 11/10/17 01:53 Dose: Not Given Alprazolam (Xanax) 0.5 mg PO HS [facility] PRN Reason: Protocol Last Admin: 11/09/17 22:36 Dose: 0.5 mg Carvedilol (Coreg) 25 mg PO DAILY [facility] Last Admin: 11/09/17 10:16 Dose: 25 mg Donepezil HCl (Aricept) 10 mg PO DAILY [facility] Last Admin: 11/09/17 10:16 Dose: 10 mg Guaifenesin/Dextromethorphan (Robitussin Dm) 5 ml PO Q4H PRN PRN Reason: Cough Last Admin: 11/09/17 22:41 Dose: 5 ml Ceftriaxone Sodium (Rocephin 1 Gram Ivpb) 1 gm in 100 mls @ 100 mls/hr IVPB DAILY [facility] PRN Reason: Protocol Last Admin: 11/09/17 10:27 Dose: 100 mls/hr Insulin Human Regular (Humulin R Low) 0 units SC ACHS [facility] PRN Reason: Protocol Last Admin: 11/09/17 17:52 Dose: 2 units Lidocaine (Lidoderm) 1 ea TD DAILY [facility] Last Admin: 11/09/17 10:18 Dose: 1 ea Methylprednisolone (Solu-Medrol) 40 mg IVP Q12 [facility] Last Admin: 11/09/17 22:36 Dose: 40 mg Mirtazapine (Remeron) 15 mg PO DAILY [facility] Last Admin: 11/09/17 10:15 Dose: 15 mg Potassium Chloride (K-Dur 20 Meq Er Tab) 20 meq PO BID [facility] Last Admin: 11/09/17 17:53 Dose: 20 meq Prasugrel (Effient) 5 mg PO DAILY [facility] Last Admin: 11/09/17 10:27 Dose: 5 mg Torsemide (Demadex) 20 mg PO DAILY [facility] Last Admin: 11/09/17 10:15 Dose: 20 mg - Labs Labs: 11/10/17 06:00 PT 11.5 SECONDS (9.4-12.5) 11/07/17 18:17 INR 1.01 (0.93-1.08) 11/07/17 18:17 APTT 30.4 Seconds (25.1-36.5) 11/07/17 18:17 Assessment and Plan - Assessment and Plan (Free Text) Assessment: Dyspnea/Cough R/O CHF/ R/O pneumonia H/O cavitary lung lesion on CT, resolved CAD/Remote PCI HBP Diabetes RA Anemia CVA Dementia Echo 03/10: Mild LVD, Mod. TR and PH Plan: AB, Resp. Tx. As per Pulm and Dr. Deo SHELTON as deyvi. Can D/C Effient Will follow. Conservative cardiac care anticipated.
[2017-11-10] MEDS: Insulin Reg-LOW-Coverage SC SCH ×5 (08:02→21:44)
[2017-11-10] MEDS: Potassium Chloride 20 mEq ER Tab PO SCH ×2 (09:39→17:30)
[2017-11-10] MEDS: cefTRIAXone 1 gm 1 GM/100 ML BAG IVPB SCH (09:40)
[2017-11-10] MEDS: MethylPREDNISolone 40 mg Vial IVP SCH ×2 (09:40→21:07)
[2017-11-10] MEDS: Lidocaine 5% Patch TD SCH (09:41)
--- NOTE | 2017-11-10 13:01 | PN ---
DATE: SUBJECTIVE: An 82-year-old female admitted in the hospital with congestive heart failure, pneumonia, history of CAD, congestive cardiomyopathy. The patient has improved slightly; however, still has severe shortness of breath and rhonchi and rales she has had a bump in her BUN and creatinine up to . We have discontinued her torsemide and changed her to Bumex. Dr. Rodriguez has seen the patient on consultation. Plan is to continue bronchodilation for treatment of heart failure, try to salvage her kidneys, reduce her diuretics and follow the patient closely over the next 24 to 48 hours. The patient is ambulatory. She has had minimal shortness of breath. She does have severe rhonchi and rales in all lung curiel, but decreased from previous. PHYSICAL EXAMINATION: HEART: Reveals regular sinus rhythm. EXTREMITIES: Without cyanosis, clubbing or edema. Juan Desouza MD
--- NOTE | 2017-11-10 13:30 | CON ---
DATE: 11/10/2017 REASON FOR CONSULTATION: Acute kidney injury, shortness of breath. HISTORY OF PRESENT ILLNESS: An 82-year-old lady, previously unknown to me, was brought to the emergency room with complaints of cough. The patient reports that she has been coughing, mostly dried scanty phlegm. No fever, no chills. No chest pain. No palpitations. In the emergency room, she was found to be somewhat hypoxic. She had a chest CT done, which showed resolution of a small cavitary lesion in the superior segment of the left lower lobe, no interval infiltrate, shotty mediastinal lymph nodes. The patient is being treated with Bumex 1 mg daily. . The patient is in a negative balance. Her creatinine was 1.2 at the time of admission, today's creatinine is 1.3. Today, her baseline creatinine 0.9, hence consultation is requested. PAST MEDICAL AND SURGICAL HISTORY: CHF, cardiomyopathy, pulmonary hypertension, asthma, ex-smoker, CAD, PTCA and stent, NIDDM, hypertension, rheumatoid arthritis. FAMILY HISTORY: Noncontributory. SOCIAL HISTORY: Ex-smoker. No alcohol use. ALLERGIES: NO KNOWN DRUG ALLERGIES. MEDICATIONS AT HOME: Included prasugrel, Singulair, Arava, Coreg, Demadex, Aricept, prednisone, Remeron, Xanax, Tylenol, metformin 500 b.i.d., Seroquel, Crestor. REVIEW OF SYSTEMS: All systems are reviewed, pertinent positives as mentioned in the history of presenting illness, rest unremarkable. PHYSICAL EXAMINATION: GENERAL: Thinly built elderly lady, lying in bed. VITAL SIGNS: Blood pressure 168/77, heart rate 73, respiratory rate 18, temperature 97.9. HEENT: Normocephalic, atraumatic, positive pallor. NECK: Supple, no JVD. LUNGS: Bilateral coarse crackles, bilateral rhonchi, expiratory wheeze. CARDIAC: S1 and S2, regular rate and rhythm, no murmur, no rub. ABDOMEN: Distended, soft, nontender, bowel sounds present. EXTREMITIES: No lower extremity edema. INTAKE AND OUTPUT: 340/not charted. LABORATORY DATA: WBC 8.7, hemoglobin 9.6, hematocrit 30, platelets 104. Sodium 139, potassium 3.9, chloride 106, CO2 of 21, BUN 70, creatinine 1.3, glucose 215, calcium 7.8, AST 21, ALT 21, albumin 2.9. CURRENT MEDICATIONS: Aricept, Bumex, Coreg, insulin, K-Dur 20 mEq daily, Lidoderm, Remeron, Robitussin, Rocephin, Solu-Medrol 40 IV q. 12, Tylenol, Demadex 20 was given yesterday, Effient. ASSESSMENT AND PLAN: 1. Acute kidney injury. 2. Prerenal azotemia in the setting of diuretics plus IV steroids. 3. Non-insulin dependant diabetes mellitus. 4. Hypertension. 5. Chronic obstructive pulmonary disease exacerbation? 6. Congestive heart failure, appears to be compensated at this time. PLAN: 1. Limit use of diuretics. 2. Continue respiratory treatments. 3. Taper steroids when feasible. 4. Monitor fingersticks. 5. Dose all antibiotics for creatinine clearance about 30-50. 6. Avoid nephrotoxins. Thank you for the courtesy of this consultation. We will follow this patient closely with you. Juana Rodriguez MD
[2017-11-10] MEDS: guaiFENesin DM 100 mg-10 mg/5 ml UD PO PRN (16:30)
--- NOTE | 2017-11-10 19:15 | PN ---
DATE: 11/10/2017 PULMONARY PROGRESS NOTE REFERRING PHYSICIAN: Juan Desouza MD. SUBJECTIVE: She is sitting up in a bed. Feels better. Decreased cough. Decreased shortness of breath. No nausea. No vomiting. No diarrhea, leg pain, or leg swelling. PHYSICAL EXAMINATION: GENERAL: In no acute distress. VITAL SIGNS: Temperature is 98, heart rate is 78, respiratory rate is 18, blood pressure 159/84, pulse ox 99% on nasal cannula. HEENT: Moist mucous membrane. Crowded airway. Mallampati score is 4. NECK: Supple. No JVD. LUNGS: Have one-third of crackles with scattered rhonchi. HEART: S1 and S2. ABDOMEN: Soft, nontender. No organomegaly. EXTREMITIES: No edema. NEUROLOGIC: Awake, alert. Follows simple command. MEDICATIONS: She is on Aricept 10 mg daily, Bumex 1 mg daily, Coreg 25 mg daily, DuoNeb q. 6 hours, insulin coverage, potassium 20 mEq twice a day, Lidoderm patch to affected areas, Remeron 50 mg at bedtime, Robitussin DM 5 mL q. 4 hours p.r.n., Rocephin 1 g daily, Solu-Medrol 40 mg q. 12 hours, Tylenol p.r.n., and Xanax 0.2 mg at bedtime. LABORATORY DATA: Reviewed. Sodium 139, potassium 3.9, chloride 106, bicarbonate 21, BUN 17, creatinine 1.3, glucose 215, calcium is 7.8. AST 21, ALT 21, alkaline phosphatase is 50. Total protein 6.4. Urinalysis has wbc's 20 to 25. Microbiology: Urine has E. coli. Blood culture is negative. IMPRESSION AND PLAN: Chronic obstructive lung disease, congestive heart failure, coronary artery disease, history of coronary stent, history of rheumatoid arthritis, known systolic dysfunction with pulmonary hypertension. We will add Norvasc 5 mg daily, decrease Solu-Medrol, continue antibiotics covering urinary tract infection, Escherichia coli. Spoke to family at bedside, all the questions answered. Thank you and we will follow with you. Lupillo Morgan MD [facility] # [id number]
[2017-11-11] MEDS: Albuterol-Ipratrop 3 mg / 0.5 (3 ml) UD IH SCH ×4 (02:00→20:15)
[2017-11-11 06:26] LABS: CALCIUM 8.3 mg/dL (8.4-10.5)
--- NOTE | 2017-11-11 07:31 | CP.PCM.PN ---
Subjective - Date & Time of Evaluation Date of Evaluation: 11/11/17 Time of Evaluation: 07:00 - Subjective Subjective: Stable on 2R. No CP or SOB. The VR was rapid during brief ambulation yesterday. PE: Lungs: rhonchi Cor.: S1S2 Abd.: soft Ext.: no edema Labs 11/10 noted: Cr.= 1.5 BC X2 NG at [address] Chest noted Objective - Vital Signs/Intake and Output Vital Signs (last 24 hours): Temp Pulse Resp BP Pulse Ox 97.8 F 65 20 151/76 H 96 11/11/17 06:00 11/11/17 06:00 11/11/17 06:00 11/11/17 06:00 11/11/17 06:00 Intake and Output: 11/11/17 11/11/17 06:59 18:59 Intake Total 120 Output Total 251 Balance -131 - Medications Medications: Current Medications Acetaminophen (Tylenol 325mg Tab) 650 mg PO Q4H PRN PRN Reason: Fever >100.5 F Acetaminophen (Tylenol 325mg Tab) 650 mg PO Q6H PRN PRN Reason: Pain, moderate (4-7) Last Admin: 11/08/17 17:23 Dose: 650 mg Albuterol/Ipratropium (Duoneb 3 Mg/0.5 Mg (3 Ml) Ud) 3 ml IH [id number] [facility] Last Admin: 11/11/17 07:24 Dose: 3 ml Alprazolam (Xanax) 0.5 mg PO [facility] PRN Reason: Protocol Last Admin: 11/10/17 21:06 Dose: 0.5 mg Amlodipine Besylate (Norvasc) 5 mg PO DAILY [facility] Last Admin: 11/10/17 17:30 Dose: 5 mg Bumetanide (Bumex) 1 mg PO DAILY [facility] Last Admin: 11/10/17 09:39 Dose: 1 mg Carvedilol (Coreg) 25 mg PO DAILY [facility] Last Admin: 11/10/17 09:38 Dose: 25 mg Donepezil HCl (Aricept) 10 mg PO DAILY [facility] Last Admin: 11/10/17 09:39 Dose: 10 mg Guaifenesin/Dextromethorphan (Robitussin Dm) 5 ml PO Q4H PRN PRN Reason: Cough Last Admin: 11/10/17 16:30 Dose: 5 ml Ceftriaxone Sodium (Rocephin 1 Gram Ivpb) 1 gm in 100 mls @ 100 mls/hr IVPB DAILY [facility] PRN Reason: Protocol Last Admin: 11/10/17 09:40 Dose: 100 mls/hr Insulin Human Regular (Humulin R Low) 0 units SC ACHS [facility] PRN Reason: Protocol Last Admin: 11/10/17 21:44 Dose: Not Given Lidocaine (Lidoderm) 1 ea TD DAILY [facility] Last Admin: 11/10/17 09:41 Dose: 1 ea Methylprednisolone (Solu-Medrol) 20 mg IVP Q12 [facility] Last Admin: 11/10/17 21:07 Dose: 20 mg Mirtazapine (Remeron) 15 mg PO DAILY [facility] Last Admin: 11/10/17 09:39 Dose: 15 mg Potassium Chloride (K-Dur 20 Meq Er Tab) 20 meq PO BID [facility] Last Admin: 11/10/17 17:30 Dose: 20 meq - Labs Labs: 11/11/17 05:40 PT 11.5 SECONDS (9.4-12.5) 11/07/17 18:17 INR 1.01 (0.93-1.08) 11/07/17 18:17 APTT 30.4 Seconds (25.1-36.5) 11/07/17 18:17 Assessment and Plan - Assessment and Plan (Free Text) Assessment: Dyspnea/Cough R/O CHF/ R/O pneumonia H/O cavitary lung lesion on CT, resolved CAD/Remote PCI HBP Diabetes RA Anemia CVA Dementia Echo 03/10: Mild LVD, Mod. TR and PH Plan: AB, Resp. Tx. As per Pulm, Renal and Dr. Desouza IF AF with RVR will increase carvedilol. OOB as deyvi. Can D/C Effient Will follow. Conservative cardiac care anticipated.
[2017-11-11] MEDS: Insulin Reg-LOW-Coverage SC SCH ×5 (08:01→23:27)
[2017-11-11] MEDS: MethylPREDNISolone 40 mg Vial IVP SCH ×2 (09:32→21:01)
[2017-11-11] MEDS: Potassium Chloride 20 mEq ER Tab PO SCH ×2 (09:32→17:59)
[2017-11-11] MEDS: cefTRIAXone 1 gm 1 GM/100 ML BAG IVPB SCH (09:33)
[2017-11-11] MEDS: Lidocaine 5% Patch TD SCH (09:33)
[2017-11-11] MEDS: guaiFENesin DM 100 mg-10 mg/5 ml UD PO PRN (10:05)
--- NOTE | 2017-11-11 10:59 | PN ---
DATE: SUBJECTIVE: Patient is without complaints. She did have an episode of tachycardia yesterday after walking, which resolved. Vital signs are stable. Patient is coughing, but less short of breath. Chest shows continued rhonchi at the right base with clear left. LABORATORY DATA: BUN and creatinine are still elevated at 74 and 1.5. She was then consulted Dr. Rodriguez. Blood pressure is stable at 151/76. She is afebrile. She is without other complaints. PLAN: Continue to monitor her renal function and continue gentle diuresis. Juan Desouza MD
--- NOTE | 2017-11-11 19:26 | PN ---
DATE: 11/11/2017 PULMONARY PROGRESS NOTE REFERRING PHYSICIAN: Juan Desouza MD SUBJECTIVE: She is lying in the bed, son is at bedside. Night was unremarkable. Feels better. Decreased cough, decreased shortness breath. No nausea, no vomiting, no diarrhea. No leg pain or leg swelling. OBJECTIVE: GENERAL: In no acute distress. VITAL SIGNS: Temperature is 98, heart rate is 71, respiratory rate is 18, blood pressure 143/71, pulse ox 96% room air. HEENT: Moist mucous membrane. Crowded airway. NECK: Supple. No JVD. LUNGS: Have a few crackles and expiratory rhonchi. HEART: S1 and S2. ABDOMEN: Soft, nontender, no organomegaly. EXTREMITIES: There is no edema. NEUROLOGIC: Awake, alert, follows simple command. MEDICATIONS: She is on Aricept 10 mg daily, Bumex 1 mg daily, Coreg 25 mg daily, DuoNeb q.6 hours, insulin coverage, potassium 20 mEq twice a day, Lidoderm patch to the affected area, Norvasc 5 mg daily, Remeron 15 mg daily, Robitussin DM 5 mL q.4 hours p.r.n., Rocephin 1 g IV daily, Solu-Medrol 20 mg q.12 hours, Tylenol p.r.n., Xanax 0.5 mg at bedtime. LABORATORY DATA: Sodium 140, potassium 3.8, chloride 108, bicarbonate 22, BUN 74, creatinine 1.5, glucose 199, and calcium is 8.3. Urine culture has E. coli. IMPRESSION AND PLAN: Chronic obstructive lung disease, congestive heart failure, coronary artery disease, history of coronary stent, rheumatoid arthritis, known systolic cardiac dysfunction, pulmonary hypertension. Spoke to the patient and patient's family at bedside. All their questions answered. Continue IV and inhaled bronchodilator. 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 We will follow with you. Lupillo Morgan MD
[2017-11-12] MEDS: Albuterol-Ipratrop 3 mg / 0.5 (3 ml) UD IH SCH ×4 (02:28→21:34)
[2017-11-12] MEDS: Insulin Reg-LOW-Coverage SC SCH ×4 (08:30→21:45)
[2017-11-12] MEDS: MethylPREDNISolone 40 mg Vial IVP SCH (09:00)
[2017-11-12] MEDS: Lidocaine 5% Patch TD SCH (09:00)
[2017-11-12] MEDS: Potassium Chloride 20 mEq ER Tab PO SCH ×2 (09:01→17:33)
[2017-11-12] MEDS: cefTRIAXone 1 gm 1 GM/100 ML BAG IVPB SCH (09:03)
--- NOTE | 2017-11-12 11:20 | PN ---
DATE: SUBJECTIVE: An 82-year-old female admitted to the hospital with shortness of breath, pneumonia, exacerbation of COPD, congestive heart failure, BNP over 19,000. Patient has been diuresed; however, has developed elevated BUN and creatinine up to 74 and 1.5, potassium 3.8. Patient still has rhonchi and rales in all lung curiel. PHYSICAL EXAMINATION HEART: Regular sinus rhythm. VITAL SIGNS: Blood pressure is elevated at 180/77. We have switched from Demadex to Bumex. Repeat chest x-ray is pending. PLAN: To continue evaluation of renal function, ultrasound of the kidneys, and continued blood pressure control and afterload reduction. Juan Desouza MD
--- NOTE | 2017-11-12 11:32 | RAD ---
HISTORY: sob COMPARISON: 11/07/2017 TECHNIQUE: Chest PA and lateral FINDINGS: LUNGS: No active pulmonary disease. PLEURA: No significant pleural effusion identified. No pneumothorax apparent. CARDIOVASCULAR: Normal. OSSEOUS STRUCTURES: No significant abnormalities. VISUALIZED UPPER ABDOMEN: Small hiatal hernia OTHER FINDINGS: None. IMPRESSION: No active disease.
[2017-11-12 12:19] LABS: BASO # 0.01 K/mm3 (0.0-2.0); BASO % 0.1 % (0.0-3.0); GRAN % 87.9 % (50.0-68.0); HEMOGLOBIN 9.2 g/dL (12.0-16.0); LYMPH # 0.5 (1.2-3.4); LYMPH % 4.6 % (22.0-35.0); MEAN CELL VOLUME 91.6 fl (80.0-105.0); MEAN CORPUSCULAR HEMOGLOBIN 29.9 pg (25.0-35.0); MEAN CORPUSCULAR HGB CONC 32.6 g/dl (31.0-37.0); MONO # 0.7 (0.1-0.6); MONO % 7.4 % (1.0-6.0); PLATELET COUNT 149 10^3/uL (120.0-450.0); RBC 3.08 10^6/uL (3.5-6.1); RED CELL DISTRIBUTION WIDTH 18.1 % (11.5-14.5)
[2017-11-12 12:35] LABS: ALB/GLOB RATIO 0.9 (1.1-1.8); CALCIUM 8.5 mg/dL (8.4-10.5)
[2017-11-12 13:53] LABS: BAND 6 % (0-2); LYMPHOCYTE 6 % (22.0-35.0); METAMYELOCYTE 2 %; MONOCYTE 4 % (1.0-6.0); NEUTROPHIL 82 % (50.0-70.0)
[2017-11-12 13:55] LABS: ANISOCYTOSIS SLIGHT; POIKILOCYTOSIS SLIGHT
--- NOTE | 2017-11-12 14:52 | PN ---
DATE: SUBJECTIVE: Patient is currently seen sitting up in bed. Her son is in the room. She has been complaining of diarrhea and her antibiotics were discontinued. Stool for C. diff was sent. Stool was positive for C. diff. The patient remains on low-dose oral diuretic therapy and IV Solu-Medrol. She remains mildly prerenal but improved over the last 24 hours. OBJECTIVE INTAKE/OUTPUT: Intake is 940, output is 503 mL plus diarrhea. Her weight is 107 pounds 2 ounces. VITAL SIGNS: Blood pressure is 158/84, temperature is 97.9, respiratory rate is 20, pulse is 79. HEENT: Shows her to be normocephalic, atraumatic. Conjunctivae are pale. Sclerae are nonicteric. NECK: Supple. No neck vein distention. CHEST: Scattered rhonchi and wheezing. No rales. CARDIOVASCULAR: Shows a regular rate and rhythm without audible murmurs, rubs or gallops. ABDOMEN: Soft. Bowel sounds normal. No rebound or guarding or masses. EXTREMITIES: Showed no significant lower extremity edema. No cyanosis or clubbing. LABORATORY DATA AND IMAGING: Chest x-ray today shows no CHF. No infiltrates. CBC: White blood cell count 10.0, hemoglobin slightly lower at 9.2, platelet count is 149,000. Chemistries today showed normal electrolytes. BUN 64 down from a high of 74. Baseline BUN is in the 30s. Creatinine is 1.2 down from 1.5. Her baseline creatinine is 1.0. Liver enzymes are normal. Albumin level is 3.0. Urine showed 2+ protein. Positive white blood cells in her urine. Microbiology: Urines are positive for E-coli. Blood cultures are negative at 4 days. Stool for C. diff is positive x2. ASSESSMENT: Acute renal failure, prerenal azotemia superimposed on chronic kidney disease, stage II. This is in the setting of IV steroids, diuretic therapy and now diarrhea with positive stools for Clostridium difficile. Hypertension controlled on present medical therapy. History of chronic obstructive pulmonary disease appears to be stable on present medical therapy. History of congestive heart failure appears to be well compensated on very low-dose diuretic therapy. Escherichia coli urinary tract infection and antibiotics have been discontinued. Pseudomembranous colitis, positive Clostridium difficile. Patient will likely be started on either Flagyl or vancomycin. She still remains on oral Vantin therapy for Escherichia coli urinary tract infection. Noninsulin-dependent diabetes mellitus, glucose control is acceptable on sliding scale insulin. PLAN: 1. Evaluation by Dr. Desouza for starting oral vancomycin or Flagyl in light of her C. diff colitis. 2. Perhaps consider early termination of antibiotic therapy. 3. Encourage oral fluid hydration, given the fact that the patient is on low-dose diuretic therapy with her diarrhea together with IV steroids. Should the patient fall significantly into negative fluid balance given her diarrhea, I would discontinue Bumex. 4. Continue to follow labs on a daily basis. 5. Follow accurate Is and Os and daily weights. Natalio Goff MD
[2017-11-12] MEDS: metroNIDAZOLE IV 500 mg/100 ml 500 MG/100 ML BAG IVPB SCH ×2 (15:12→21:19)
[2017-11-12] MEDS: Vancomycin 25 MG/ML PO SCH ×2 (15:12→17:33)
--- NOTE | 2017-11-13 00:03 | PN ---
DATE: 11/12/2017 PULMONARY PROGRESS NOTE REFERRING PHYSICIAN: Juan Desouza MD SUBJECTIVE: She is lying in the bed, head at 45 degrees. Night was unremarkable. Still has a mild cough. No nausea, no vomiting, no diarrhea. No leg pain or leg swelling. OBJECTIVE: GENERAL: In no acute distress. VITAL SIGNS: Temperature is 98, heart rate is 79, respiratory rate is 20, blood pressure 151/68, pulse ox of 99% on room air. HEENT: Moist mucous membranes. Small oral cavity. Crowded airway. NECK: Supple. No JVD. LUNGS: Has a few crackle, scattered rhonchi. HEART: S1 and S2. ABDOMEN: Soft, nontender. No organomegaly. EXTREMITIES: No edema. NEUROLOGIC: Awake, alert, and follows simple command. MEDICATIONS: She is on Aricept 10 mg daily, clonidine 0.2 mg q. 8 hours, Coreg 25 mg twice a day, DuoNeb q. 6 hours around the clock, Flagyl 500 mg q. 8 hours, insulin coverage, potassium 20 mEq twice a day, Lidoderm patch on affected area, Norvasc 5 mg daily, Remeron 50 mg at bedtime, Robitussin DM 5 mL q. 4 hours p.r.n., Solu-Medrol 20 mg q. 12 hours, Tylenol p.r.n., vancomycin 125 mg q. 6 hours, Vantin 200 mg daily, Xanax 0.5 mg at bedtime. LABORATORY DATA: Shows hemoglobin 9.2, hematocrit 28.2, WBC 10, platelet count is 149. Sodium 138, potassium 4, chloride 107, bicarbonate 29, BUN 64, creatinine 1.2, glucose 228, calcium 8.5. AST 19, ALT 21, alkaline phosphatase is 59, albumin is 3. Influenza A and B negative. Urinalysis has E. coli. Chest x-ray done today shows no active pulmonary disease reported. IMPRESSION AND PLAN: Chronic obstructive lung disease, congestive heart failure, coronary artery disease, history of coronary stent, rheumatoid arthritis, known systolic cardiac dysfunction, pulmonary hypertension. From a Pulmonary point of view, she is doing okay. 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 Followup electrolytes. Thank you and we will follow with you. Lupillo Morgan MD [facility] # [id number]
[2017-11-13] MEDS: Vancomycin 25 MG/ML PO SCH ×2 (00:30→13:05)
[2017-11-13 00:46] VITALS: O2SAT 98
[2017-11-13] MEDS: metroNIDAZOLE IV 500 mg/100 ml 500 MG/100 ML BAG IVPB SCH ×2 (05:10→13:04)
[2017-11-13 07:07] LABS: ALB/GLOB RATIO 0.8 (1.1-1.8); ALBUMIN 2.5 g/dL (3.0-4.8)
[2017-11-13] MEDS: Insulin Reg-LOW-Coverage SC SCH ×2 (07:30→13:00)
[2017-11-13] MEDS: Albuterol-Ipratrop 3 mg / 0.5 (3 ml) UD IH SCH ×2 (07:51→13:54)
--- NOTE | 2017-11-13 09:11 | PN ---
DATE: SUBJECTIVE: The patient is an 82-year-old white female, admitted to the hospital with severe decompensated lung disease, developed acute renal failure. She is improved down to 57 and 1.2. She did turn as a B-positive for C. diff yesterday. P.o. antibiotics have been held. Vancomycin has been started. The patient has less rhonchi and rales bilaterally. Renal function is improved. Plan is to continue vancomycin p.o. Start physical therapy and occupational therapy. Transfer to TCU with possible continue steroids, bronchodilators and close monitoring of her renal function. Juan Desouza MD
[2017-11-13] MEDS ORDERED: Cefpodoxime (Vantin) 200 mg Tab PO SCH (10:00)
[2017-11-13] MEDS: Potassium Chloride 20 mEq ER Tab PO SCH (10:26)
[2017-11-13] MEDS: Lidocaine 5% Patch TD SCH (10:33)
[2017-11-13 11:59] VITALS: BP 132/62; PULSE 88; RESP 20; TEMP 98
--- NOTE | 2017-11-15 07:09 | DS ---
SUMMARY: The patient was discharged to TCU at [facility]. The patient is an 82-year-old female with a history of CAD, peripheral vascular disease, rheumatoid arthritis, admitted to the hospital with renal insufficiency, exacerbation of COPD, congestive heart failure, BNP 1900. The patient was admitted. She was diuresed; however developed acute renal insufficiency secondary to diuresis and low output failure. The patient was seen in consultation by Dr. Rodriguez and also Dr. Butcher. The diuretics were adjusted in consultation with Dr. Morgan because of severe bilateral rhonchi and rales. The patient received steroids, bronchodilators, afterload reduction. She was taken off ACEs and ARBs because of her elevated BUN, but eventually her BUN and creatinine started to . She was on antibiotics, did develop C. diff enterocolitis and started on p.o. vancomycin. Eventually, she was started some physical therapy and was able to be transferred to TCU for continuation of treatment of heart failure, acute renal failure and C. diff enterocolitis. Juan Desouza MD
== END 2017-11-13 15:20 | DRG 291 ==
LOC: ED 16:34 → ERH 20:17 → 2RSO 22:13 → OBSVTOIN 11-08 09:50 → 2RNO 11-08 13:44
PROVIDERS: ADMIT Internal Medicine; ATTEND Internal Medicine
PROC: 3E0F7GC Introduction of Other Therapeutic Substance into Respiratory Tract, Via Natural or Artificial Opening (ICD-10-PCS; principal; 2017-11-08)
DX: I13.0 Hypertensive heart and chronic kidney disease with heart failure and stage 1 through stage 4 chronic kidney disease, or unspecified chronic kidney disease (principal); J18.9 Pneumonia, unspecified organism; A04.72 Enterocolitis due to Clostridium difficile, not specified as recurrent; N17.9 Acute kidney failure, unspecified; I50.43 Acute on chronic combined systolic (congestive) and diastolic (congestive) heart failure; N39.0 Urinary tract infection, site not specified; J44.1 Chronic obstructive pulmonary disease with (acute) exacerbation; J44.0 Chronic obstructive pulmonary disease with (acute) lower respiratory infection; E11.51 Type 2 diabetes mellitus with diabetic peripheral angiopathy without gangrene; E11.22 Type 2 diabetes mellitus with diabetic chronic kidney disease; N18.2 Chronic kidney disease, stage 2 (mild); I42.0 Dilated cardiomyopathy; I27.20 Pulmonary hypertension, unspecified; I25.10 Atherosclerotic heart disease of native coronary artery without angina pectoris; D64.9 Anemia, unspecified; R09.02 Hypoxemia; F03.90 Unspecified dementia, unspecified severity, without behavioral disturbance, psychotic disturbance, mood disturbance, and anxiety; M06.9 Rheumatoid arthritis, unspecified; M17.0 Bilateral primary osteoarthritis of knee; B96.20 Unspecified Escherichia coli [E. coli] as the cause of diseases classified elsewhere; Z86.73 Personal history of transient ischemic attack (TIA), and cerebral infarction without residual deficits; Z95.5 Presence of coronary angioplasty implant and graft; Z87.891 Personal history of nicotine dependence

== ENCOUNTER 2017-11-13 15:20 | Inpatient (IN) | payer OTHER, MEDICAID ==
[2017-11-13 16:28] VITALS: BMI 33.6
[2017-11-13] MEDS ORDERED: guaiFENesin DM 100 mg-10 mg/5 ml UD PO PRN (16:51)
[2017-11-13] MEDS ORDERED: Vancomycin 25 MG/ML PO SCH (17:00)
[2017-11-13] MEDS: Potassium Chloride 20 mEq ER Tab PO SCH (18:09)
[2017-11-13] MEDS ORDERED: Pneumococcal 23-Valent Vaccine IM ONE (19:41)
[2017-11-13] MEDS ORDERED: Influenza Vaccine 60 mcg/0.5 mL SYR (4YR UP) IM ONE (19:41)
--- NOTE | 2017-11-13 20:59 | PN ---
DATE: SUBJECTIVE: The patient is currently seen, just having been transferred to the TCU from . She comes into complete a course of antibiotic therapy. Her diarrhea had improved. She is now on oral vancomycin for C. diff colitis. The patient remains mildly prerenal. MEDICATIONS: Medication list reviewed. The patient is currently on Aricept, clonidine, Coreg, Flagyl, insulin, K tabs, Lidoderm, Norvasc, prednisone, Remeron, Robitussin p.r.n., Tylenol p.r.n., oral vancomycin and Xanax. PHYSICAL EXAMINATION VITAL SIGNS: Blood pressure 147/76, temperature 97.3, pulse 61, respiratory rate 20 with a pulse ox of 100%. HEENT: Shows her to be normocephalic, atraumatic. Conjunctivae are pale. Sclerae nonicteric. NECK: Supple. No neck vein distention. CHEST: Scattered rhonchi. No wheezing. No rales. CARDIOVASCULAR: Shows a regular rate and rhythm without audible murmurs, rubs or gallops. ABDOMEN: Soft. Bowel sounds normal. No rebound, guarding or masses. EXTREMITIES: Show no lower extremity cyanosis, clubbing or edema. LABORATORY DATA AND IMAGING: CBC: White blood cell count 10.0, hemoglobin 9.2 with a platelet count of 149,000. Chemistry showed normal electrolytes. Chloride 109, sodium 139, with a potassium of 3.7, CO2 of 22. Her BUN remains elevated at 57, down from a high of 74. On admission to the hospital, her BUN was in the mid 30s. She has had BUNs in the upper 20s in 2017. Calcium is 8.0, corrects to normal for an albumin of 2.5. Phosphorus is 2.5 with a magnesium of 2.0. Microbiology: Urine is positive for E. coli. Stools are positive for C. diff. ASSESSMENT: 1. Acute renal failure with prerenal azotemia, superimposed on chronic kidney disease stage II. This in the setting of steroid, diuretic therapy and now diarrhea. 2. Hypertension, controlled on present medical therapy. 3. History of chronic obstructive pulmonary disease, appears stable on present medical therapy. 4. History of congestive heart failure. The patient appears to be well compensated. She had been on low-dose diuretic therapy. This was put on hold. 5. History of Escherichia coli urinary tract infection. The patient has completed a course of antibiotic therapy. 6. Pseudomembranous colitis with positive stools for Clostridium difficile. She is on IV Flagyl and p.o. vancomycin. 7. Non-insulin dependant diabetes mellitus. Glucose control is acceptable on sliding scale insulin. PLAN: 1. Agree with decision for treatment of her C. diff colitis with IV Flagyl and p.o. vancomycin. 2. Agree with discontinuation of oral antibiotic therapy for E. coli UTI. 3. Encourage the patient to improve and increase oral fluid hydration given the fact that she is having diarrhea. 4. Continue to hold Bumex at this point in time. 5. Continue to follow labs closely in the TCU until her BUN and creatinine fall back to baseline range. Her baseline BUN is in the low 30s with a baseline creatinine in the low 1 range. Natalio Goff MD
[2017-11-13] MEDS: metroNIDAZOLE IV 500 mg/100 ml 500 MG/100 ML BAG IVPB SCH (21:17)
[2017-11-13] MEDS: Vancomycin 25 MG/ML PO SCH (21:21)
[2017-11-13] MEDS: Insulin Reg-LOW-Coverage SC SCH (21:28)
[2017-11-14] MEDS: Vancomycin 25 MG/ML PO SCH ×4 (05:07→21:39)
[2017-11-14] MEDS: metroNIDAZOLE IV 500 mg/100 ml 500 MG/100 ML BAG IVPB SCH (05:07)
--- NOTE | 2017-11-14 05:10 | CON ---
DATE: 11/13/2017 PULMONARY CONSULTATION REFERRING PHYSICIAN: Juan Desouza MD REASON FOR CONSULTATION: Chronic lung disease, cough, and shortness of breath. HISTORY OF PRESENT ILLNESS: This is an 82-year-old female known to me from acute side of the hospital where she was admitted with cough, shortness of breath, has a history of cardiomyopathy with LV dysfunction, pulmonary hypertension, childhood asthma, coronary artery disease, history of coronary stent, hypertension, diabetes, rheumatoid arthritis, anemia, history of stroke in the remote past, she was treated with diuretics, afterload burner hand, IV and inhaled bronchodilator with improvement, presently admitted to TICU for continued care. She is lying in the bed, feels better. Still has some cough, no sputum production. No nausea, no vomiting. No chest pain. No dysuria. No leg pain or leg swelling. PAST MEDICAL HISTORY: As per history of present illness. ALLERGIES: NONE KNOWN. SOCIAL HISTORY: Stopped smoking many years ago. Denied any alcohol use. FAMILY HISTORY: No significant cardiopulmonary disease reported. MEDICATIONS: She is on Aricept 10 mg at bedtime, clonidine 0.2 mg twice a day, Coreg 25 mg twice a day, metronidazole 500 mg q.8h., insulin coverage, potassium 20 mEq twice a day, lidocaine patch to affected area, Norvasc 5 mg daily, prednisone 20 mg daily, Remeron 15 mg at bedtime, Robitussin DM 5 mL q.4h. p.r.n., Tylenol p.r.n., vancomycin 125 mg q.6h., Xanax 0.5 mg at bedtime. REVIEW OF SYSTEMS: No headache, no rhinitis, did have some cough, no nausea, no vomiting, no abdominal pain, short of breath on exertion. No leg pain or leg swelling. PHYSICAL EXAMINATION: GENERAL: Lying in the bed, no acute distress. VITAL SIGNS: Temperature is 98, heart rate 61, respiratory rate is 20, blood pressure 147/76, pulse ox 100% on nasal cannula. HEENT: Moist mucous membranes. Crowded airway. NECK: Supple. No JVD. LUNGS: Has basilar crackles with few rhonchi. HEART: S1, S2. ABDOMEN: Soft, nontender, no organomegaly. EXTREMITIES: There is no edema. NEUROLOGIC: Awake, alert, follows simple command. LABORATORY DATA: Sodium 139, potassium 3.7, chloride 109, bicarbonate 22, BUN 57, creatinine 1.2, glucose 115, calcium is 8.0, phosphorus 2.5, magnesium 2.0, AST 19, ALT 25, alk phos is 52. Albumin is 2.5. Urine culture has E-coli. Chest x-ray done yesterday shows no active pulmonary disease. IMPRESSION AND PLAN: Chronic obstructive lung disease, congestive heart failure, coronary artery disease, history of coronary stent, rheumatoid arthritis, known systolic cardiac dysfunction, pulmonary hypertension. From a Pulmonary point of view, she is doing okay. Continue p.o. and inhaled bronchodilator. Keep head at 45 degrees. Aspiration precaution, sleep apnea precaution. Continue diuretics. Start therapy. Fall precaution. Thank you and we will follow with you. Lupillo Morgan MD
[2017-11-14 06:46] LABS: ALB/GLOB RATIO 0.8 (1.1-1.8); ALBUMIN 2.4 g/dL (3.0-4.8); CALCIUM 7.9 mg/dL (8.4-10.5)
[2017-11-14] MEDS: Insulin Reg-LOW-Coverage SC SCH ×4 (06:54→22:44)
[2017-11-14 07:56] LABS: HEMOGLOBIN 8.2 g/dL (12.0-16.0); MEAN CORPUSCULAR HEMOGLOBIN 29.5 pg (25.0-35.0); MEAN CORPUSCULAR HGB CONC 32.4 g/dl (31.0-37.0); RBC 2.78 10^6/uL (3.5-6.1); RED CELL DISTRIBUTION WIDTH 18.3 % (11.5-14.5); WHITE BLOOD COUNT 7.7 10^3/ul (4.5-11.0)
[2017-11-14] MEDS: Potassium Chloride 20 mEq ER Tab PO SCH ×2 (08:56→18:02)
[2017-11-14] MEDS: Lidocaine 5% Patch TD SCH (10:44)
--- NOTE | 2017-11-14 13:31 | PN ---
DATE: SUBJECTIVE: An 82-year-old white female transferred to TCU from [facility] because of chronic congestive heart failure and renal insufficiency. BUN and creatinine are improved to 51 and 1.2. Hemoglobin is 8.2. She still has some rales bilaterally. Her blood pressure is better controlled at 167/72. She will do some physical therapy and occupational therapy. Continue gentle diuresis and following up her renal function and increase the patient's strength and address some of her weakness. Chest ____ shows some rales at the right base. PHYSICAL EXAMINATION ABDOMEN: Benign. EXTREMITIES: No cyanosis, clubbing or edema. NEUROLOGIC: The patient is awake, alert, oriented x3. Neurologically, she is grossly intact. Juan Desouza MD
[2017-11-14 20:57] LABS: IRON 84 ug/dL (45-180)
[2017-11-14 21:06] LABS: % IRON SATURATION 41 % (20-55); TOTAL IRON BINDING CAPACITY 206 ug/dL (265-497)
--- NOTE | 2017-11-14 21:38 | PN ---
DATE: 11/14/2017 SUBJECTIVE: The patient is seen lying in bed. She is awake. She is alert. She is comfortable. She denies any pain. She denies any shortness of breath. PHYSICAL EXAMINATION: GENERAL: Elderly lady, lying in bed. VITAL SIGNS: Blood pressure 119/68, heart rate 65, respiratory rate 18, temperature 97. HEENT: Normocephalic, atraumatic. NECK: Supple, no JVD. LUNGS: Bilateral equal air entry, no rales. CARDIAC: S1 and S2. Regular rate and rhythm. No murmur, no rub. ABDOMEN: Soft, nondistended, nontender, bowel sounds present. EXTREMITIES: No lower extremity edema. CURRENT MEDICATIONS: Aricept, Catapres 0.2 b.i.d., Coreg 25 b.i.d., Flagyl 500 q. 8, insulin, potassium 20 mEq b.i.d., amlodipine 5, prednisone 10, Remeron, Tylenol, vancomycin 125 q. 6, Xanax. ASSESSMENT: 1. Acute kidney injury, prerenal azotemia, superimposed on chronic kidney disease, stage II/III. 2. Hypertension. 3. Chronic obstructive pulmonary disease. 4. Congestive heart failure.. 5. Escherichia coli urinary tract infection. 6. Pseudomembranous colitis. 7. Severe anemia. 8. Non-insulin dependent diabetes mellitus. PLAN: 1. Continue antibiotics for C. diff colitis including Flagyl and vancomycin. 2. Complete the course of antibiotics for UTI. 3. Push p.o. fluids. 4. Continue to hold Bumex. 5. Check stool occults x3. 6. Check iron stores. 7. Monitor H&H closely. Juana Rodriguez MD
--- NOTE | 2017-11-14 22:04 | PN ---
DATE: 11/14/2017 PULMONARY PROGRESS NOTE REFERRING PHYSICIAN: Juan Desouza MD. SUBJECTIVE: She is lying in the bed, head at 45 degrees. Night was unremarkable. No headache. No rhinitis. Mild cough. No nausea. No vomiting, diarrhea, leg pain, leg swelling. OBJECTIVE: GENERAL: In no acute distress. VITAL SIGNS: Temp is 98, heart rate is 71, respiratory rate is 16, blood pressure 162/76, pulse ox 96% on room air. HEENT: Moist mucous membrane. Small oral cavity. NECK: Supple. No JVD. LUNGS: Have a few crackles. HEART: S1 and S2. ABDOMEN: Soft, nontender. No organomegaly. EXTREMITIES: No edema. NEUROLOGICAL: Awake and alert. Follows simple command. LABORATORY DATA: Shows hemoglobin 8.2, hematocrit 25.3, WBC 7.7, platelet is 172. Sodium 138, potassium 3.6, chloride 110, bicarbonate 18, BUN 51, creatinine 1.2, glucose 150, calcium 7.9, magnesium 2.0, AST 21, ALT 25, alk phos is 52, albumin is 2.4. MEDICATIONS: She is on Aricept 10 mg at bedtime, clonidine 0.2 mg twice a day, Coreg 25 mg twice a day, Flagyl 500 mg p.o. q. 8 hours, insulin coverage, potassium 20 mEq twice a day, lidocaine patch daily, Norvasc 5 mg daily, prednisone 20 mg daily, Remeron 15 mg at bedtime, Robitussin DM q. 4 hours p.r.n., Tylenol p.r.n., vancomycin 125 mg q. 6 hours, Xanax 0.5 mg at bedtime. IMPRESSION AND PLAN: Chronic obstructive lung disease, congestive heart failure, coronary artery disease, history of coronary stent, rheumatoid arthritis, cardiac systolic dysfunction, pulmonary hypertension. Pulmonary point of view, she is doing okay. We will decrease her prednisone to 10 mg daily. Continue inhaled bronchodilator. Continue diuretics, afterload reducers. On antibiotics. Fall precaution. Thank you and we will follow with you. Lupillo Morgan MD [facility] # [id number]
[2017-11-15] MEDS: Vancomycin 25 MG/ML PO SCH ×4 (04:48→21:23)
[2017-11-15 06:02] LABS: HEMOGLOBIN 8.1 g/dL (12.0-16.0); MEAN CELL VOLUME 91.3 fl (80.0-105.0); MEAN CORPUSCULAR HEMOGLOBIN 29.3 pg (25.0-35.0); MEAN CORPUSCULAR HGB CONC 32.1 g/dl (31.0-37.0); MEAN PLATELET VOLUME 9.1 fl (7.0-11.0); RBC 2.76 10^6/uL (3.5-6.1); RED CELL DISTRIBUTION WIDTH 18.2 % (11.5-14.5); WHITE BLOOD COUNT 9.6 10^3/ul (4.5-11.0)
[2017-11-15] MEDS: Insulin Reg-LOW-Coverage SC SCH ×4 (06:44→21:30)
[2017-11-15 07:20] LABS: ALB/GLOB RATIO 0.8 (1.1-1.8); ALBUMIN 2.4 g/dL (3.0-4.8); CALCIUM 8.4 mg/dL (8.4-10.5)
[2017-11-15] MEDS: Potassium Chloride 20 mEq ER Tab PO SCH ×2 (09:12→17:59)
[2017-11-15] MEDS: Lidocaine 5% Patch TD SCH (11:31)
--- NOTE | 2017-11-15 13:40 | PN ---
DATE: SUBJECTIVE: An 82-year-old asthmatic female admitted to the hospital with exacerbation of COPD; congestive heart failure; developed renal insufficiency, kidney functions improved to 53 and 1.2. She is severely anemic at 8.1. She does have history of rheumatoid arthritis, on immunosuppressive drugs in the past and now with renal disease and chronic diseases. Plan is to transfuse because of history of CAD and peripheral vascular disease and to continue respiratory therapy, treatment of congestive heart failure and continue physical therapy and occupational therapy. The patient is markedly improved as far as her lung parenchyma. She has less shortness of breath, less sputum production and her lungs are clear to auscultation and percussion. PHYSICAL EXAMINATION VITAL SIGNS: Temperature is . We will also repeat her BNP. Juan Desouza MD
--- NOTE | 2017-11-16 03:26 | PN ---
DATE: PULMONARY PROGRESS NOTE REFERRING PHYSICIAN: Juan Desouza MD SUBJECTIVE: She is lying in the bed, head at 45 degrees, on the telephone. Night was unremarkable. Doing well in therapy. Cough is better. No nausea, no vomiting, no diarrhea. No leg pain or leg swelling. OBJECTIVE: GENERAL: In no acute distress. VITAL SIGNS: Temperature is 98, heart rate 62, respiratory rate is 16, blood pressure 131/70, pulse ox 95% on room air. HEENT: Moist mucous membranes. Small oral cavity. Crowded airway. NECK: Supple. No JVD. LUNGS: Has few crackles. HEART: S1 and S2. ABDOMEN: Soft, nontender. No organomegaly. EXTREMITIES: No edema. NEUROLOGIC: Awake and alert, follows simple command. MEDICATIONS: Aricept 10 mg at bedtime, Catapres 0.2 mg twice a day, Coreg 25 mg twice a day, metronidazole 500 mg q. 8 hours, insulin coverage, potassium 20 mEq twice a daily, lidocaine patch to affected area daily, Norvasc 5 mg daily, prednisone 10 mg daily, Remeron 15 mg at bedtime, Robitussin 5 mL q. 4 hours p.r.n., Tylenol p.r.n., vancomycin 125 mg q. 6 hours, Xanax 0.5 mg at bedtime. LABORATORY DATA: Shows hemoglobin 8.1, hematocrit 25.2, WBC 9.6, platelet is 186. Sodium 136, potassium 4.2, chloride 110, bicarbonate 19, BUN 53, creatinine 1.2, glucose 174, calcium 8.4, iron is 84, AST 14, ALT 22, alk phos is 54. ProBNP 1140. Albumin is 2.4. IMPRESSION AND PLAN: Chronic obstructive lung disease, congestive heart failure, coronary artery disease, history of coronary stent, rheumatoid arthritis, cardiac systolic dysfunction, pulmonary hypertension. We will continue taper prednisone down, we will discontinue in the next 2 to 3 days. Continue inhaled bronchodilator PFT upon discharge as outpatient. May need to attend a sleep study. Thank you and we will follow with you. Lupillo Morgan MD [facility] # [id number]
[2017-11-16] MEDS: Vancomycin 25 MG/ML PO SCH ×4 (05:02→22:04)
[2017-11-16] MEDS: Insulin Reg-LOW-Coverage SC SCH ×4 (06:52→22:05)
[2017-11-16 07:09] LABS: HEMOGLOBIN 8.3 g/dL (12.0-16.0); MEAN CELL VOLUME 92.2 fl (80.0-105.0); MEAN CORPUSCULAR HEMOGLOBIN 29.4 pg (25.0-35.0); MEAN CORPUSCULAR HGB CONC 31.9 g/dl (31.0-37.0); MEAN PLATELET VOLUME 8.9 fl (7.0-11.0); RBC 2.82 10^6/uL (3.5-6.1); RED CELL DISTRIBUTION WIDTH 18.6 % (11.5-14.5)
[2017-11-16 07:21] LABS: ALB/GLOB RATIO 0.8 (1.1-1.8); ALBUMIN 2.5 g/dL (3.0-4.8); CALCIUM 8.2 mg/dL (8.4-10.5)
[2017-11-16] MEDS: Lidocaine 5% Patch TD SCH (10:10)
[2017-11-16] MEDS ORDERED: Darbepoetin Alfa 60 mcg/ml Inj SC ONE (14:49)
--- NOTE | 2017-11-16 15:18 | PN ---
DATE: 11/15/2017 SUBJECTIVE: The patient is seen sitting in bed. She is awake. She is alert. She is comfortable. She does not appear to be in any kind of distress. PHYSICAL EXAMINATION: VITAL SIGNS: Blood pressure 131/70, heart rate 62, respiratory rate 16, temperature 98. HEENT: Normocephalic, atraumatic. NECK: Supple, no JVD. LUNGS: Bilateral equal air entry, bilateral equal expansion. CARDIAC: S1 and S2, regular rate and rhythm, no murmur, no rub. EXTREMITIES: No lower extremity edema. INTAKE AND OUTPUT: Not charted. LABORATORY DATA: WBC 9.6, hemoglobin 8, hematocrit 25, platelets 186. Sodium 136, potassium 4.2, chloride 110, CO2 of 19, BUN 53, creatinine 1.2, glucose 174, calcium 8.4, AST 14, ALT 22, albumin 2.4. CURRENT MEDICATIONS: List reviewed. ASSESSMENT: 1. Stable chronic kidney disease stage 3. 2. Mild prerenal azotemia. 3. Hypertension. 4. Chronic obstructive pulmonary disease. 5. Congestive heart failure. 6. Escherichia coli urinary tract infection. 7. Pseudomembranous colitis. 8. Severe anemia. 9. Kwm-[id number] diabetes mellitus. PLAN: 1. Continue p.o. vancomycin. 2. Complete antibiotics. 3. Physical therapy. 4. Monitory H and H. 7. Stool occults x3. 1. Continue p.o. vancomycin. 2. Complete antibiotics. 3. Physical therapy. 4. Monitor H&H. 5. Stool stool occults x3 Juana Rodriguez MD
[2017-11-16] MEDS: Potassium Chloride 20 mEq ER Tab PO SCH ×2 (18:09)
--- NOTE | 2017-11-16 18:40 | PN ---
DATE: 11/16/2017 SUBJECTIVE: Patient is seen sitting in bed. She is awake, she is alert, she is comfortable. PHYSICAL EXAMINATION: GENERAL: An elderly lady, sitting in bed. VITAL SIGNS: Blood pressure 146/64, heart rate 60, respiratory rate 20, temperature 97.8. HEENT: Normocephalic, atraumatic. NECK: Supple, no JVD. LUNGS: Bilateral equal air entry, no rales. EXTREMITIES: No lower extremity edema. INTAKE AND OUTPUT: Not charted. LABORATORY DATA: WBC 7, hemoglobin 8.3, hematocrit 26, platelets 206. Sodium 137, potassium 4.1, chloride 113, CO2 of 18, BUN 48, creatinine 1.3, glucose 127, calcium 8.2. CURRENT MEDICATIONS: Aricept, Catapres 0.2 b.i.d., Coreg 25 b.i.d., Flagyl 500 q.8, insulin, potassium 20 mEq, Lidoderm, amlodipine 5, prednisone 10, Remeron, Robitussin, Tylenol, vancomycin 125 q.6, Xanax. ASSESSMENT: 1. Acute kidney injury superimposed on chronic kidney disease, stage III. 2. Severe anemia. 3. Chronic obstructive pulmonary disease exacerbation. 4. Congestive heart failure, currently compensated. 5. History of rheumatoid arthritis. PLAN: 1. Push p.o. intake. 2. Monitor H and H. 3. Patient is stool occult positive, this may be because of C. diff. colitis, consider GI evaluation. 4. Iron stores are adequate, so no intravenous iron. 5. Aranesp 60 mcg x1 dose. Juana Rodriguez MD
--- NOTE | 2017-11-17 00:31 | PN ---
DATE: 11/16/2017 PULMONARY PROGRESS NOTE REFERRING PHYSICIAN: Dr. Desouza. SUBJECTIVE: She is lying in the bed, head at 45 degrees. Feels okay. Cough is better. Decreased shortness of breath. No nausea, no vomiting, no diarrhea. No leg pain or leg swelling. OBJECTIVE: GENERAL: In no acute distress. VITAL SIGNS: Temperature is 98, heart rate 82, respiratory rate is 20, blood pressure 149/79, pulse ox 97% on room air. HEENT: Moist mucous membrane. Small oral cavity. NECK: Supple. No JVD. LUNGS: Have a few basilar crackles, HEART: S1 and S2. ABDOMEN: Soft and nontender. No organomegaly. EXTREMITIES: No edema. NEUROLOGICAL: Awake and alert. Follows simple command. MEDICATIONS: She is on Aricept 10 mg at bedtime, clonidine 0.2 mg twice a day, Coreg 25 mg twice a day, Flagyl 500 mg q. 8 hours, insulin coverage, potassium 20 mEq twice a day, lidocaine at affected area daily, Norvasc 5 mg daily, prednisone 10 mg daily, Remeron 50 mg at bedtime, Robitussin DM 5 mL q. 4 hours p.r.n., Tylenol p.r.n., vancomycin 125 mg q. 6 hours, Xanax 0.5 mg at bedtime. LABORATORY DATA: Shows hemoglobin 8.3, hematocrit 26.0, WBC 7.0, platelet count is 206. Sodium 137, potassium 4.1, chloride 113, bicarbonate 18, BUN 48, creatinine 1.3, glucose 127, calcium is 8.2, AST 28, ALT 32, alk phos is 50. Albumin is 2.5. Stool occult blood has been positive. IMPRESSION AND PLAN: Chronic obstructive lung disease, congestive heart failure, coronary artery disease, history of coronary stent, rheumatoid arthritis, cardiac systolic dysfunction, pulmonary hypertension. Pulmonary point view, doing well. We will decrease prednisone to 5 mg daily. Continue inhaled bronchodilator, sleep apnea precaution. Avoid nocturnal sedation. Continue therapy. We will need pulmonary function test as outpatient, sleep study as outpatient. Thank you and we will follow with you. Lupillo Morgan MD [facility] # [id number]
[2017-11-17] MEDS: Vancomycin 25 MG/ML PO SCH ×4 (04:48→21:54)
[2017-11-17] MEDS: Insulin Reg-LOW-Coverage SC SCH ×4 (06:55→21:53)
[2017-11-17] MEDS: Potassium Chloride 20 mEq ER Tab PO SCH ×2 (10:42→19:06)
[2017-11-17] MEDS: Lidocaine 5% Patch TD SCH (10:43)
--- NOTE | 2017-11-17 12:01 | PN ---
DATE: SUBJECTIVE: The patient is currently seen lying comfortable supine in bed in the TCU. She continues to state that she still has mild diarrhea. She does remain on medication for C. diff colitis. Diuretics have been placed on hold. The patient remains mildly prerenal, but with a significant improvement in her BUN and creatinine from admission. MEDICATIONS: Medication list reviewed. The patient is currently on Aricept, clonidine, Coreg, Flagyl, insulin, K tabs, Lidoderm, Norvasc, p.o. prednisone, Remeron, Robitussin, Tylenol p.r.n., oral vancomycin and Xanax. PHYSICAL EXAMINATION VITAL SIGNS: Blood pressure ranging from 149-186 systolic, diastolic ranging from 79-94. Temperature is 97.8, respiratory rate is 20 with a pulse of 74. HEENT: Normocephalic, atraumatic. Conjunctivae are pale. Sclerae nonicteric. NECK: Supple. No neck vein distention. CHEST: Clear to auscultation and percussion. No rales, no rhonchi, no wheezing. CARDIOVASCULAR: Shows a regular rate and rhythm without audible murmurs, rubs or gallops. ABDOMEN: Soft. Bowel sounds are normal. No rebound, no guarding, no masses. EXTREMITIES: Show no lower extremity cyanosis, clubbing or edema. LABORATORY DATA AND IMAGING: CBC from yesterday shows a white blood cell count 7.0, hemoglobin stable at 8.2 with a platelet count of 206,000. Chemistries show sodium of 137, potassium 4.1, chloride 113 with a CO2 of 18. BUN 48 with a creatinine of 1.3, BUN is down from a maximum of 74. Her baseline BUN is in the 30 range. Creatinine is down from a maximum of 1.5 to 1.2-1.3 range. Her baseline creatinine is in the 1.2 range. Microbiology: Urines are positive for E. coli and stools are positive for C. diff. ASSESSMENT: 1. Acute renal failure with prerenal azotemia, superimposed on chronic kidney disease stage II. This is in the setting of steroid therapy, diuretic therapy which had been discontinued and mild diarrhea from Clostridium difficile colitis. 2. History of hypertension, perhaps slight elevation of systolic blood pressures. The patient continues on Coreg and Catapres. She is also on amlodipine 5 mg. If necessary, adjustments can be made in these medications. 3. History of chronic obstructive pulmonary disease, appears stable on present medical therapy. 4. History of congestive heart failure. The patient appears to be well compensated. She is presently off diuretic therapy. 5. History of Escherichia coli urinary tract infection. The patient had completed a course of antibiotic therapy. 6. History of pseudomembranous colitis with positive stools for Clostridium difficile. She is on p.o. Flagyl and p.o. vancomycin. She continues to have mild diarrhea. 7. History of non-insulin dependant diabetes mellitus. Glucose control is acceptable. 8. History of rheumatoid arthritis, on low dose steroid therapy. PLAN: 1. Complete course of antibiotics for her C. diff colitis. 2. Continue exercise and rehabilitation in the TCU. 3. At present, continue to hold Bumex, but this will likely need to be restarted upon discharge to prevent any episode of hypervolemia and CHF. But with her diarrhea at present and the fact that she is clinically euvolemic, no plans for diuretic therapy at this point in time. 4. Continue to monitor labs on a regular basis in the TCU. Natalio Goff MD
--- NOTE | 2017-11-18 02:43 | PN ---
DATE: PULMONARY PROGRESS NOTE REFERRING PHYSICIAN: Juan Desouza MD SUBJECTIVE: The patient is lying in the bed, head at 45 degrees. Night was unremarkable. Does not use CPAP. No headache. No rhinitis. Cough is better. No nausea. No vomiting. No diarrhea. No leg pain or leg swelling. OBJECTIVE: GENERAL: In no acute distress. VITAL SIGNS: Temp is 98, heart rate is 65, respiratory rate is 16, blood pressure pulse ox 99% on nasal cannula. HEENT: Moist mucous membrane. Small oral cavity. NECK: Supple. No JVD. LUNGS: Have a fair airflow with rhonchi. HEART: S1 and S2. ABDOMEN: Soft, nontender. No organomegaly. EXTREMITIES: No edema. NEUROLOGIC: Awake and alert. Follows simple command. MEDICATIONS: She is on Aricept 10 mg at bedtime, Catapres 0.2 mg twice a day, Coreg 25 mg twice a day, Flagyl 500 mg q. 8 hours, insulin coverage, potassium 20 mEq twice a day, lidocaine patch daily, Norvasc 5 mg daily, prednisone 5 mg daily, Remeron 15 mg at bedtime, Robitussin DM 5 mL q. 4 hours, Tylenol p.r.n., vancomycin 125 mg q. 6 hours, and Xanax 0.5 mg at bedtime. LABORATORY DATA: Reviewed. Blood sugar this morning is 178. IMPRESSION AND PLAN: Chronic obstructive lung disease, congestive heart failure, coronary artery disease, history of coronary stent, rheumatoid arthritis, cardiac systolic dysfunction, pulmonary hypertension. Pulmonary point of view, doing well. We will discontinue prednisone. Continue inhaled bronchodilator, diuretics, afterload specifications writer, gastric prophylaxis. Sequential compression device to lower extremity. Continue therapy. Thank you and we will follow with you. Lupillo Morgan MD
[2017-11-18] MEDS: Vancomycin 25 MG/ML PO SCH ×4 (04:01→22:24)
[2017-11-18 06:33] LABS: ALB/GLOB RATIO 0.8 (1.1-1.8); ALBUMIN 2.7 g/dL (3.0-4.8); ALT/SGPT 43 U/L (7-56); AST/SGOT 25 U/L (14-36); BLOOD UREA NITROGEN 43 mg/dL (7-21); GFR AFRICAN-AMERICAN > 60; GFR NON-AFRICAN AMERICAN 53; MAGNESIUM 2.1 mg/dL (1.7-2.2)
[2017-11-18 06:34] LABS: HEMOGLOBIN 12.6 g/dL (12.0-16.0); MEAN CELL VOLUME 92.3 fl (80.0-105.0); MEAN CORPUSCULAR HEMOGLOBIN 30.4 pg (25.0-35.0); MEAN CORPUSCULAR HGB CONC 32.9 g/dl (31.0-37.0); MEAN PLATELET VOLUME 9.1 fl (7.0-11.0); RBC 4.15 10^6/uL (3.5-6.1); RED CELL DISTRIBUTION WIDTH 17.4 % (11.5-14.5); WHITE BLOOD COUNT 9.7 10^3/ul (4.5-11.0)
[2017-11-18] MEDS: Insulin Reg-LOW-Coverage SC SCH ×4 (06:51→22:23)
[2017-11-18] MEDS: Potassium Chloride 20 mEq ER Tab PO SCH ×2 (08:45→17:38)
[2017-11-18] MEDS: Lidocaine 5% Patch TD SCH (10:00)
--- NOTE | 2017-11-18 19:16 | PN ---
DATE: SUBJECTIVE: The patient is currently seen sitting up in a chair. She continues to complain of diarrhea. She does have C. diff and remains on vancomycin and Flagyl therapy. She does remain prerenal. MEDICATIONS: Medication list reviewed. Patient is on Aricept, clonidine, Coreg, Flagyl, insulin, K tabs, Lidoderm, Norvasc, Remeron, Robitussin p.r.n., Tylenol p.r.n., oral vancomycin and Xanax. OBJECTIVE: VITAL SIGNS: Blood pressure 152/72, temperature 97.7, respiratory rate is 16 with a pulse of 72. HEENT: Normocephalic, atraumatic. Conjunctiva are pink. Sclerae are nonicteric. NECK: Supple. No neck vein distention. CHEST: Clear to auscultation and percussion. No rales, no rhonchi, no wheezing. CARDIOVASCULAR: Shows a regular rate and rhythm without audible murmurs, rubs or gallops. ABDOMEN: Soft. Bowel sounds normal. No rebound, no guarding, no masses. EXTREMITIES: Show no lower extremity cyanosis, clubbing or edema. LABORATORY DATA AND IMAGING STUDIES: CBC today white blood cell count 9.7, hemoglobin improved at 12.6. Yesterday's hemoglobin level was 8.3 and previous was 8.1. So we will repeat a CBC tomorrow to make certain that these numbers are accurate. Chemistries: Electrolytes were normal. BUN 43 with a creatinine of 1.0. The patient's BUN was 74 at its highest level. Her creatinine was 1.5 at the highest level. The patient is down to baseline levels on the creatinine. BUN baseline had been in the upper 30 to low 40 range. Glucose 104, calcium 9 with a phosphorus of 3.1. Magnesium level is normal at 2.1. Albumin is 2.7. Microbiology: Urines are positive for E. coli and stools are positive for C. diff. ASSESSMENT 1. Acute renal failure with very mild prerenal azotemia falling to baseline levels. The patient has chronic kidney disease, stage II suspect. The patient is presently off diuretic therapy. The patient is currently off steroids. She does continue to have mild diarrhea with perhaps mild negative fluid balance. Diarrhea is from Clostridium difficile colitis. 2. History of hypertension. Slight elevation of systolic blood pressure. The patient will continue Coreg and Catapres. She is also on amlodipine 5 mg a day. If necessary, adjustments can be made in these medications. 3. History of chronic obstructive pulmonary disease, stable on present medical therapy. 4. History of congestive heart failure. The patient appears well compensated is presently off diuretic therapy, but in all likelihood will need to return to diuretic therapy upon discharge. 5. History of Escherichia coli urinary tract infection. Patient has completed a course of antibiotic therapy. 6. History of Pseudomembranous colitis. Stool is positive for Clostridium difficile. She remains on both oral Flagyl and oral vancomycin. She states she continues to have mild diarrhea. 7. History of [id number] diabetes mellitus. Glucose control is acceptable. 8. History of rheumatoid arthritis. The patient had been on low-dose steroid therapy in the past. 9. Anemia likely secondary to bone marrow suppression from her Clostridium difficile colitis and previous urinary tract infection. Of note, hemoglobin level today is reported at 12.6, up from 8.3. Repeat levels to be done tomorrow to check for accuracy. PLAN: 1. Complete her course of antibiotics for C. diff colitis. 2. Continue exercise and rehabilitation in the TCU. 3. Continue to hold diuretic therapy at this point in time, but in all likelihood upon discharge the patient will need to be restarted back on diuretic therapy to prevent edema and CHF. 4. Continue to monitor labs closely in the TCU. Natalio Goff MD
--- NOTE | 2017-11-18 23:28 | PN ---
DATE: 11/18/2017 FOLLOWUP NOTE SUBJECTIVE: She is comfortable in bed, in no acute distress. Ambulating with support. Oral intake is good. No shortness of breath. No chest pain. REVIEW OF SYSTEMS: As per HPI. Rest of the 12-point review of systems reviewed and negative. PHYSICAL EXAMINATION: GENERAL: Comfortable in bed, in no acute distress. VITAL SIGNS: Temperature 98.7, heart rate is 62 per minute, blood pressure 130/80, respiratory rate 18 per minute, oxygen saturation 98% on room air. HEENT: Pallor positive. NECK: No lymphadenopathy. CHEST: Fair air entry, present and equal bilaterally. No added sounds. CARDIOVASCULAR: S1 and S2 normal. No murmur. No gallop. ABDOMEN: Soft and nontender. No hepatosplenomegaly. LABORATORY DATA: White count 9.7, hemoglobin 12.6, hematocrit 38, platelet count 178. Sodium 138, potassium 4.1, creatinine 1, iron 84. ASSESSMENT: 1. Severe anemia myelodysplasia. 2. Acute renal insufficiency, resolved. 3. Congestive heart failure. 4. Hypertension. 5. Chronic obstructive pulmonary disease. PLAN: She is status post 3 units of blood transfusion. Hemoglobin and hematocrit stable. Creatinine improved. Continue cardiac meds, Norvasc 5 mg daily, Coreg 25 mg p.o. b.i.d., Catapres 0.2 mg p.o. b.i.d. Blood pressure controlled on current medications. Continue p.o. vancomycin. Lindsey Muñoz MD
--- NOTE | 2017-11-19 02:59 | PN ---
DATE: 11/18/2017 PULMONARY PROGRESS NOTE REFERRING PHYSICIAN: Dr. Desouza. SUBJECTIVE: She is out of bed to chair. Night was unremarkable. Feels much better. Decreased cough. Decreased shortness of breath. No nausea. No vomiting or diarrhea. No leg pain or leg swelling. OBJECTIVE: GENERAL: In no acute distress. VITAL SIGNS: Temperature is 98, heart rate 76, respiratory rate is 16, blood pressure 149/78, pulse ox of 98% room air. HEENT: Moist mucous membrane. Small oral cavity. NECK: Supple. No JVD. LUNGS: Has a few basilar crackles. Overall, fair airflow. HEART: S1 and S2. ABDOMEN: Soft, nontender. No organomegaly. EXTREMITIES: No edema. NEUROLOGIC: Awake and alert, follows simple command. MEDICATIONS: She is on Aricept 10 mg at bedtime, clonidine 0.2 mg twice a day, Coreg 25 mg twice a day, insulin coverage, potassium 20 mEq twice a day, lidocaine patch daily, Norvasc 5 mg daily, Remeron 50 mg at bedtime, Robitussin DM 5 mL q. 4 hours p.r.n., Tylenol p.r.n. basis, vancomycin 125 mg q. 6 hours, Xanax 0.5 mg at bedtime. LABORATORY DATA: Shows hemoglobin 12.6, hematocrit 38.3, WBC 9.7, platelet is 178. Sodium 138, potassium 4.1, chloride 112, bicarbonate 20, BUN 43, creatinine 1.0, glucose 104, calcium 9.0, AST 25, ALT 43, alk phos is 64. Albumin is 2.7. Stool occult blood is positive. IMPRESSION: Chronic obstructive lung disease, congestive heart failure, coronary artery disease, history of coronary stent, rheumatoid arthritis, cardiac diastolic dysfunction, pulmonary hypertension. Pulmonary point of view, she is doing okay. Continue therapy. Bronchodilator. Has occult positive stool, needed GI followup, could be seen as outpatient. Gastric prophylaxis, fall precaution. Continue therapy. Thank you and we will follow with you. Lupillo Morgan MD
[2017-11-19] MEDS: Vancomycin 25 MG/ML PO SCH ×4 (04:51→21:23)
[2017-11-19 06:27] LABS: HEMOGLOBIN 12.8 g/dL (12.0-16.0); MEAN CELL VOLUME 92.9 fl (80.0-105.0); MEAN CORPUSCULAR HEMOGLOBIN 30.5 pg (25.0-35.0); MEAN CORPUSCULAR HGB CONC 32.8 g/dl (31.0-37.0); MEAN PLATELET VOLUME 9.3 fl (7.0-11.0); RBC 4.2 10^6/uL (3.5-6.1); RED CELL DISTRIBUTION WIDTH 17.8 % (11.5-14.5); WHITE BLOOD COUNT 10.4 10^3/ul (4.5-11.0)
[2017-11-19] MEDS: Insulin Reg-LOW-Coverage SC SCH ×4 (06:49→21:25)
[2017-11-19 07:27] LABS: ALB/GLOB RATIO 0.9 (1.1-1.8); ALBUMIN 2.8 g/dL (3.0-4.8); ALT/SGPT 27 U/L (7-56); AST/SGOT 19 U/L (14-36); BLOOD UREA NITROGEN 34 mg/dL (7-21); GFR AFRICAN-AMERICAN > 60; GFR NON-AFRICAN AMERICAN 53
--- NOTE | 2017-11-19 08:34 | CON ---
DATE: 11/17/2017 HISTORY OF PRESENT ILLNESS: Ms. Sullivan is an 82-year-old female transferred to transitional care unit for deconditioning and physical therapy. She was admitted to regular floor with cardiomyopathy, LV dysfunction, and CHF. She also had severe anemia. Review of record showed she had anemia and getting back to 2014, hemoglobin has been in the range of 8 to 10 g/dL, most of the time average hemoglobin for her was 9 g/dL. She received 2 units of blood transfusion yesterday. Denies any complaint now, participating in physical therapy. MEDICATIONS: Tylenol 650 q.6 hours p.r.n., Xanax 0.5 mg p.r.n., Norvasc 5 mg daily, Coreg 25 mg b.i.d., Catapres 0.25 mg b.i.d., Aricept 10 mg daily, Lidoderm one patch, Remeron 25 mg p.o. at bedtime, vancomycin 125 mg q.6, potassium. REVIEW OF SYSTEMS: As per HPI. Rest of 12-point review of systems reviewed and negative. PHYSICAL EXAMINATION: GENERAL: Comfortable in bed, in no acute distress. VITAL SIGNS: Temperature 98.7, heart rate 72 per minute, blood pressure 152/72, respiratory rate 16 per minute, oxygen saturation 98% on room air. HEENT: Pallor positive. NECK: No lymphadenopathy. CHEST: Air entry present and equal bilaterally. No added sounds. CARDIOVASCULAR: S1 and S2 normal. No murmur. No gallop. EXTREMITIES: 1+ edema. LABORATORY DATA: White count 7, hemoglobin 8.3, hematocrit 26, platelet 206. Sodium 137, potassium 4.1, creatinine 1.3. ASSESSMENT: 1. Congestive heart failure. 2. Chronic obstructive pulmonary disease. 3. Chronic anemia, likely myelodysplasia. 4. Renal insufficiency, improved. PLAN: She received 2 units of blood transfusion yesterday. We will repeat the CBC in the morning. Entire medical record reviewed. She has chronic anemia for past few years, likely myelodysplasia. Renal functions have been normal throughout. Iron studies are within normal limits. Shortness of breath improved. We will continue current medications. Participating in physical therapy. Lindsey Toni, MD
[2017-11-19] MEDS: Potassium Chloride 20 mEq ER Tab PO SCH ×2 (10:22→18:00)
[2017-11-19] MEDS: Lidocaine 5% Patch TD SCH (10:22)
--- NOTE | 2017-11-19 12:18 | PN ---
DATE: SUBJECTIVE: An 82-year-old white female admitted to the hospital with acute renal failure which is markedly improved at 34 and 1.0, congestive cardiomyopathy, exacerbation of COPD. Patient is afebrile at 97.7, pulse of 89, blood pressure is elevated at 191/97. Patient was transfused up to hemoglobin of 12.8. She does have a history of rheumatoid arthritis. She is feeling better and doing physical therapy and occupational therapy. PHYSICAL EXAMINATION: CHEST: Shows diminished heart sounds, scattered rhonchi and rales bilaterally. HEART: Regular sinus rhythm. EXTREMITIES: Without cyanosis, clubbing, or edema. IMPRESSION: Resolved renal failure, improving congestive cardiomyopathy, and exacerbation of the chronic obstructive pulmonary disease. Juan Desouza MD
--- NOTE | 2017-11-19 18:51 | PN ---
DATE: 11/19/2017 SUBJECTIVE: Patient is seen lying in bed. She is awake. She is alert. She is comfortable. PHYSICAL EXAMINATION: GENERAL: Elderly lady lying in bed. VITAL SIGNS: Blood pressure 149/78, heart rate 89, respiratory rate 18, temperature 97.7. HEENT: Normocephalic, atraumatic. LUNGS: Bilateral equal air entry. No rales. EXTREMITIES: No lower extremity edema. LABORATORY DATA: WBC 10, hemoglobin 12.8, hematocrit 39, platelets 204. Sodium 137, potassium 4.2, chloride 112, CO2 of 19, BUN 34, creatinine 1.0, glucose 123, calcium 9.0. ASSESSMENT: 1. Resolved acute kidney injury. 2. Severe hypertension. 3. Chronic obstructive pulmonary disease. 4. Congestive heart failure. 5. Escherichia coli urinary tract infection. 6. Pseudomembranous colitis. 7. Noninsulin-dependent diabetes mellitus. 8. Rheumatoid arthritis. PLAN: 1. Since acute kidney injury has resolved, we will restart on CARISSA inhibitor, patient was on lisinopril 10 mg at home, I will start at 5 mg since blood pressure is high. 2. Continue antibiotics as per ID recommendations. 3. Continue to hold diuretics therapy for the time being. 4. Physical therapy. 5. Monitor labs. Juana Rodriguez MD
--- NOTE | 2017-11-19 23:08 | PN ---
DATE: 11/19/2017 PULMONARY PROGRESS NOTE REFERRING PHYSICIAN: Dr. Desouza. SUBJECTIVE: She is sitting up in a bed. Night was unremarkable. Doing well in therapy. Feels better. Decreased cough. Decreased shortness of breath. No nausea, no vomiting, no diarrhea. No leg pain or leg swelling. OBJECTIVE: GENERAL: In no acute distress. VITAL SIGNS: Temperature is 98, heart rate 76, respiratory rate is 20, blood pressure 155/79, pulse ox 99% on room air. HEENT: Moist mucous membrane. Crowded airway. NECK: Supple. No JVD. LUNGS: Have fair airflow with rhonchi. HEART: S1 and S2. ABDOMEN: Soft, nontender. No organomegaly. EXTREMITIES: No edema. NEUROLOGIC: Awake, alert. Follows simple command. MEDICATIONS: She is on Aricept 10 mg at bedtime, clonidine 0.2 mg twice a day, Coreg 25 mg twice a day, insulin coverage, potassium 20 mEq twice a day, lidocaine patch daily, Norvasc 7.5 mg daily, Remeron 50 mg at bedtime, Robitussin DM 5 mL q. 4 hours p.r.n., Tylenol p.r.n., vancomycin 125 mg q. 6 hours, Xanax 0.5 mg at bedtime, Zestril 5 mg daily. LABORATORY DATA: Shows hemoglobin 12.8, hematocrit 39.0, WBC 10.4, platelet is 204. Sodium 137, potassium 4.2, chloride 112, bicarbonate 19, BUN 34, creatinine 1.0, glucose 123, calcium 9.0, AST 19, ALT 27, alk phos is 70. Albumin is 2.8. IMPRESSION AND PLAN: Chronic obstructive lung disease, congestive heart failure, coronary artery disease, history of coronary stent, rheumatoid arthritis, cardiac diastolic dysfunction, pulmonary hypertension. Pulmonary point of view, doing okay, doing well in therapy. Breathing is better. We will need outpatient pulmonary function test to assure this lung function, should also recommend attended sleep study. Thank you and we will follow with you. Lupillo Morgan MD
[2017-11-20] MEDS: Insulin Reg-LOW-Coverage SC SCH ×4 (06:37→22:12)
[2017-11-20 06:59] LABS: HEMOGLOBIN 12.8 g/dL (12.0-16.0); MEAN CORPUSCULAR HEMOGLOBIN 30.8 pg (25.0-35.0); MEAN CORPUSCULAR HGB CONC 32.7 g/dl (31.0-37.0); MEAN PLATELET VOLUME 9.1 fl (7.0-11.0); RBC 4.16 10^6/uL (3.5-6.1); RED CELL DISTRIBUTION WIDTH 17.8 % (11.5-14.5); WHITE BLOOD COUNT 11.8 10^3/ul (4.5-11.0)
[2017-11-20 07:24] LABS: ALB/GLOB RATIO 0.8 (1.1-1.8); ALBUMIN 2.6 g/dL (3.0-4.8); ALT/SGPT 30 U/L (7-56); AST/SGOT 17 U/L (14-36); BLOOD UREA NITROGEN 31 mg/dL (7-21); CALCIUM 8.5 mg/dL (8.4-10.5); GFR AFRICAN-AMERICAN > 60; GFR NON-AFRICAN AMERICAN 53
[2017-11-20] MEDS: Potassium Chloride 20 mEq ER Tab PO SCH ×2 (08:23→17:36)
--- NOTE | 2017-11-20 10:45 | PN ---
DATE: SUBJECTIVE: An 82-year-old female admitted with exacerbation of COPD and developed C. diff while in the hospital. The patient is completing her course of physical therapy and occupational therapy. She is on cefepime and vancomycin for her C. diff enterocolitis. PHYSICAL EXAMINATION: VITAL SIGNS: Stable. She has been transfused up to hemoglobin of 12.8, temperature is 98.6, blood pressure is elevated at 180/100. She has an increased dose of amlodipine. Her CARISSA inhibitors have also been held because of elevated BUN and creatinine. BUN and creatinine came down to 31 and 1.0. The patient is most likely discharged home today. Will follow as an outpatient. Juan Desouza MD
[2017-11-20] MEDS: Lidocaine 5% Patch TD SCH (11:15)
--- NOTE | 2017-11-20 11:33 | CP.PCM.CON ---
History of Present Illness - History of Present Illness History of Present Illness: 81 year old female with COPD, DM, dilated cardiomyopathy, history of pneumonia, GERD, hiatal hernia, history of MSSA bacteremia was initially admitted in [facility] because of shortness of breath and cough and was found to have COPE exacerbation and acute on chronic CHF. She was being treated for this but the patient developed diarrhea and was found to have C. diff. associated diarrhea. She was then transferred to [facility] for continued medical therapy and physical rehab. She was about to be discharged, but she was noted to have continued diarrhea and her WBC count elevated to 11.9 today. Infectious Diseases consult is requested to further evaluate and manage. Currently she does not complain of fever or chills, no nausea or vomiting, has some abdominal pain but is intemittent, no sore throat, no chest pain, no dysphagia, no dysuria, no blurring of vision. Review of Systems - Review of Systems All systems: reviewed and no additional remarkable complaints except (as per HPI ) Past Patient History - Infectious Disease Hx of Infectious Diseases: None - Tetanus Immunizations Tetanus Immunization: Unknown - Past Social History Smoking Status: Former Smoker - CARDIAC Hx Cardiac Disorders: Yes Hx Congestive Heart Failure: Yes Hx Hypertension: Yes - PULMONARY Hx Chronic Obstructive Pulmonary Disease (COPD): Yes - NEUROLOGICAL HX Cerebrovascular Accident: Yes - HEENT Hx HEENT Problems: Yes (wears glasses) Hx Blind: No Hx Cataracts: Yes Hx Deafness: Yes (hard of hearing) Hx Difficulty Chewing: No Hx Epistaxis: No Hx Glaucoma: No Hx Macular Degeneration: No - RENAL Hx Chronic Kidney Disease: No Hx Dialysis: No Hx Kidney Stones: No Hx Neurogenic Bladder: No Hx Pyelonephritis: No Hx Renal (Kidney) Cancer: No Hx Renal Failure: No - ENDOCRINE/METABOLIC Hx Diabetes Mellitus Type 2: Yes - HEMATOLOGICAL/ONCOLOGICAL Hx Blood Disorders: Yes Hx AIDS: No Hx Anemia: Yes Hx Cancer: No Hx Chemotherapy: No Hx Cirrhosis: No Hx Hemophilia: No Hx Hepatitis A: No Hx Hepatitis B: No Hx Hepatitis C: No Hx Human Immunodeficiency Virus (HIV): No Hx Metastesis: No Hx Shingles: No Hx Sickle Cell Disease: No Hx Unexplained Bleeding: No - INTEGUMENTARY Hx Dermatological Problems: No Hx Basil Cell: No Hx Eczema: No Hx Melanoma: No Hx Psoriasis: No Hx Squamous Cell: No - MUSCULOSKELETAL/RHEUMATOLOGICAL Hx Falls: No - GASTROINTESTINAL Hx Gastrointestinal Disorders: (reflux hx hiatal hernia) - GENITOURINARY/GYNECOLOGICAL Hx Reproductive Disorders: No - PSYCHIATRIC Hx Psychophysiologic Disorder: Yes Hx Anxiety: Yes Hx Bipolar Disorder: No Hx Depression: No Hx Emotional Abuse: No Hx Hallucinations: No Hx Panic Symptoms: No Hx Paranoia: No Hx Post Traumatic Stress Disorder: No Hx Psychosis: No Hx Physical Abuse: No Hx Schizophrenia: No Hx Sexual Abuse: No - SURGICAL HISTORY Hx Surgeries: Yes (c section) Hx Amputation: No Hx Appendectomy: No Hx Cardiac Catheterization: No Hx Cholecystectomy: No Hx Coronary Stent: No Hx Gastric Bypass Surgery: No Hx Hysterectomy: No Hx Joint Replacement: No Hx Kidney Transplant: No Hx Liver Transplant: No Hx Mastectomy: No Hx Musculoskeletal Surgery: No Hx Open Heart Surgery: No Hx Orthopedic Surgery: No Hx Splenectomy: No Hx Valve Replacement: No - ANESTHESIA Hx Anesthesia: Yes Meds Allergies/Adverse Reactions: Allergies Allergy/AdvReac Type Severity Reaction Status Date / Time No Known Allergies Allergy Verified 11/07/17 16:38 - Medications Medications: Current Medications Acetaminophen (Tylenol 325mg Tab) 650 mg PO Q6H PRN; Protocol PRN Reason: Pain, moderate (4-7) Acetaminophen (Tylenol 325mg Tab) 650 mg PO Q4H PRN; Protocol PRN Reason: Fever >100.4 F Alprazolam (Xanax) 0.5 mg PO HS [facility] PRN Reason: Protocol Last Admin: 11/19/17 21:24 Dose: 0.5 mg Amlodipine Besylate (Norvasc) 7.5 mg PO DAILY [facility] Last Admin: 11/20/17 11:15 Dose: 7.5 mg Carvedilol (Coreg) 25 mg PO 0800,1800 [facility] PRN Reason: Protocol Last Admin: 11/20/17 08:23 Dose: Not Given Clonidine HCl (Catapres) 0.2 mg PO BID [facility] Last Admin: 11/20/17 11:13 Dose: 0.2 mg Donepezil HCl (Aricept) 10 mg PO HS [facility] PRN Reason: Protocol Last Admin: 11/19/17 21:24 Dose: 10 mg Guaifenesin/Dextromethorphan (Robitussin Dm) 5 ml PO Q4H PRN PRN Reason: Cough Insulin Human Regular (Humulin R Low) 0 units SC ACHS [facility] PRN Reason: Protocol Last Admin: 11/20/17 06:37 Dose: Not Given Lidocaine (Lidoderm) 1 ea TD DAILY [facility] PRN Reason: Protocol Last Admin: 11/20/17 11:15 Dose: 1 ea Lisinopril (Zestril) 5 mg PO DAILY [facility] Last Admin: 11/20/17 11:14 Dose: 5 mg Mirtazapine (Remeron) 15 mg PO HS [facility] PRN Reason: Protocol Last Admin: 11/19/17 21:26 Dose: 15 mg Potassium Chloride (K-Dur 20 Meq Er Tab) 20 meq PO 0800,1800 [facility] PRN Reason: Protocol Last Admin: 11/20/17 08:23 Dose: 20 meq Vancomycin HCl (Vancocin 25 Mg/Ml (Oral Use)) 500 mg PO QID [facility] PRN Reason: Protocol Physical Exam - Constitutional Appears: Well, Non-toxic, Chronically Ill - Head Exam Head Exam: NORMAL INSPECTION - ENT Exam ENT Exam: Mucous Membranes Moist - Neck Exam Neck exam: Negative for: Meningismus - Respiratory Exam Respiratory Exam: Decreased Breath Sounds - Cardiovascular Exam Cardiovascular Exam: +S1, +S2 - GI/Abdominal Exam GI & Abdominal Exam: Soft. absent: Tenderness Results - Vital Signs Recent Vital Signs: Last Vital Signs Temp 98.6 F 11/19/17 17:48 Pulse 84 11/20/17 11:15 Resp 18 11/19/17 17:48 BP 163/87 H 11/20/17 11:15 Pulse Ox 99 11/19/17 17:48 - Labs Result Diagrams: 11/20/17 06:30 11/20/17 06:30 Labs: Laboratory Results - last 24 hr 11/19/17 11/19/17 11/19/17 11:22 16:46 21:16 WBC RBC Hgb Hct MCV MCH MCHC RDW Plt Count MPV Sodium Potassium Chloride Carbon Dioxide Anion Gap BUN Creatinine Est GFR ( Amer) Est GFR (Non-Af Amer) POC Glucose (mg/dL) 158 H 160 H 201 H Random Glucose Calcium Total Bilirubin AST ALT Alkaline Phosphatase Total Protein Albumin Globulin Albumin/Globulin Ratio 11/20/17 11/20/17 11/20/17 05:11 06:30 06:30 WBC 11.8 H RBC 4.16 Hgb 12.8 Hct 39.1 MCV 94.0 MCH 30.8 MCHC 32.7 RDW 17.8 H Plt Count 180 MPV 9.1 Sodium 137 Potassium 4.0 Chloride 110 H Carbon Dioxide 19 L Anion Gap 12 BUN 31 H Creatinine 1.0 Est GFR ( Amer) > 60 Est GFR (Non-Af Amer) 53 POC Glucose (mg/dL) 121 H Random Glucose 123 H Calcium 8.5 Total Bilirubin 0.5 AST 17 ALT 30 Alkaline Phosphatase 62 Total Protein 5.8 Albumin 2.6 L Globulin 3.2 Albumin/Globulin Ratio 0.8 L 11/20/17 11:11 WBC RBC Hgb Hct MCV MCH MCHC RDW Plt Count MPV Sodium Potassium Chloride Carbon Dioxide Anion Gap BUN Creatinine Est GFR ( Amer) Est GFR (Non-Af Amer) POC Glucose (mg/dL) 190 H Random Glucose Calcium Total Bilirubin AST ALT Alkaline Phosphatase Total Protein Albumin Globulin Albumin/Globulin Ratio Assessment & Plan - Assessment and Plan (Free Text) Plan: Assessment C. diff. associated diarrhea, with slight increase in WBC count history of sepsis due to methicillin-sensitive Staph aureus bacteremia history of left lower lobe healthcare-associated pneumonia COPD DM dilated cardiomyopathy history of pneumonia GERD hiatal hernia Plan will increase dose of PO Vancomycin to 500 mg QID and start IV Flagyl; monitor WBC count; currently no other signs and symptoms that suggest other sources of infection - if her WBC count continues to increase and/or abdominal pain worsens , should get CT scan of the abdomen and pelvis will monitor clinically
--- NOTE | 2017-11-20 13:38 | PN ---
DATE: SUBJECTIVE: The patient is currently seen comfortable sitting up in bed. Family is in the room. According to family members, there has been no diarrhea in the last 24 hours. She is completing a course of oral antibiotic therapy for her pseudomembranous colitis. Her BUN is back to 31 with a creatinine of 1.0, at her baseline levels. MEDICATIONS: Medication list reviewed. Patient is on Aricept, clonidine, Coreg, oral Flagyl, insulin sliding scale, Lidoderm, K tabs, Norvasc, Remeron, Robitussin DM, p.r.n. Tylenol, oral vancomycin, Xanax, and Zestril. OBJECTIVE VITAL SIGNS: Blood pressure is 163/87, she continues to have elevations of systolic blood pressure; pulse is 84; temperature 99.1; respiratory rate 16. HEENT: Exam shows her to be normocephalic, atraumatic. Conjunctivae are pink. Sclerae are nonicteric. NECK: Supple. No neck vein distention. CHEST: Clear to auscultation and percussion. No rales, rhonchi or wheezing. CARDIOVASCULAR: Shows a regular rate and rhythm without murmurs, rubs or gallops. ABDOMEN: Soft. Bowel sounds normal. No rebound or guarding, no masses. EXTREMITIES: Show no lower extremity cyanosis, clubbing or edema. LABORATORY DATA AND IMAGING: CBC: White blood cell count today 11.8, hemoglobin 12.8 with a platelet count of 180,000. Chemistries: Sodium 137, potassium 4.0, chloride 110 with a CO2 of 19. BUN is 31 with a creatinine of 1.0. Glucose is 123. Calcium is 8.5. Albumin is low at 2.6. Phosphorus and magnesium levels were normal. Microbiology: Urine is positive for E. coli and stools are positive for C. Diff. All these cultures were done in acute care. ASSESSMENT 1. Acute renal failure with very mild prerenal azotemia, which has now fallen to baseline levels. Baseline BUN is in the 30s with a creatinine of 1.0. Apparently, her diarrhea has resolved. 2. History of hypertension. The patient continues to have elevations of systolic blood pressure. She remains on Coreg 25 twice a day, clonidine 0.2 twice a day, and Norvasc has been increased to 7.5 mg a day. The patient is also on lisinopril. I will increase lisinopril to 10 mg a day and increase Norvasc to 10 mg a day. 2. History of chronic obstructive pulmonary disease, stable on present medical therapy. 3. History of congestive heart failure. The patient had been on low-dose diuretic therapy in the outpatient setting. Upon discharge with the resolution of her diarrhea, the patient may be restarted back on low-dose diuretic therapy to prevent congestive heart failure and hypervolemia. 4. History of Escherichia coli urinary tract infection. The patient has completed a course of antibiotic therapy. 5. History of pseudomembranous colitis. Stools are positive for C. Diff. She is both on oral Flagyl and oral vancomycin. According to her family member, diarrhea has resolved. 6. History of [id number] diabetes mellitus. Glucose control is acceptable. 7. History of rheumatoid arthritis. The patient had been on low-dose steroid therapy. This appears to be stable. 8. History of anemia in part secondary to bone marrow suppression from her colitis. In part secondary to her urinary tract infection. Hemoglobin level today is acceptable at 12.8. PLAN 1. Complete course of antibiotics for C. Diff colitis. 2. I will increase Norvasc to 10 mg a day and increase lisinopril to 10 mg a day. 3. Continue Coreg, continue clonidine. 4. Upon discharge, the patient may be restarted back on low-dose diuretic therapy in light of her history of congestive heart failure. 5. Continue to monitor blood pressure closely in the TCU during the remainder of her hospital stay. Natalio Goff MD
[2017-11-20] MEDS ORDERED: Vancomycin 25 MG/ML PO SCH (14:00)
[2017-11-20] MEDS: metroNIDAZOLE IV 500 mg/100 ml 500 MG/100 ML BAG IVPB SCH ×2 (14:58→15:43)
[2017-11-20] MEDS: Vancomycin 25 MG/ML PO SCH ×3 (14:59→21:24)
--- NOTE | 2017-11-21 03:05 | PN ---
PULMONARY PROGRESS NOTE DATE: 11/20/2017 REFERRING PHYSICIAN: Dr. Desouza. SUBJECTIVE: She is sitting at the side of the bed, having dinner. Family is at bedside. Night was unremarkable. Feels much better. Doing well in therapy. No nausea. No vomiting, diarrhea, leg pain, or leg swelling. OBJECTIVE: GENERAL: In no acute distress. VITAL SIGNS: Temp is 99, heart rate is 86, respiratory rate is 16, blood pressure 154/72, pulse ox 100% on room air. HEENT: Moist mucous membranes. Small oral cavity. Crowded airway. NECK: Supple. No JVD. LUNGS: Have fair airflow with rhonchi. HEART: S1 and S2. ABDOMEN: Soft and nontender. No organomegaly. EXTREMITIES: No edema. NEUROLOGIC: Awake, alert. Follows simple command. MEDICATIONS: She is on Aricept 10 mg daily; Catapres patch 0.2 mg twice a day; Coreg 25 mg twice a day; metronidazole 500 mg q. 8 hours, which is on hold; also on potassium 20 mEq daily; lidocaine patch to the affected area; Norvasc 10 mg daily; mirtazapine 15 mg at bedtime; Robitussin DM 5 mL q. 4 hours p.r.n.; Tylenol p.r.n.; vancomycin 500 mg q. 8 hours; Xanax 0.5 mg at bedtime; Zestril 10 mg daily. LABORATORY DATA: Shows hemoglobin 12.8, hematocrit 39.1, WBC 11.8, platelet is 180. Sodium 137, potassium 4.0, chloride 110, bicarbonate 19, BUN 31, creatinine 1.0, glucose 123, calcium 8.5, AST 17, ALT , alk phos is 62. Albumin is 2.6. Stool for C. diff. is negative. IMPRESSION AND PLAN: Chronic obstructive lung disease, congestive heart failure, coronary artery disease, history of coronary stent, rheumatoid arthritis, cardiac diastolic dysfunction, pulmonary hypertension, activities of daily living dysfunction. I spoke to the patient's son at bedside. All the questions answered. Continue bronchodilator. Fall precaution. Gastric prophylaxis. Deep venous thrombosis prophylaxis. Outpatient pulmonary function test, may benefit from sleep study. Thank you, and we will follow with you. Lupillo Morgan MD [facility] # [id number]
[2017-11-21] MEDS: Insulin Reg-LOW-Coverage SC SCH (07:43)
[2017-11-21] MEDS: Potassium Chloride 20 mEq ER Tab PO SCH (08:07)
[2017-11-21] MEDS: Lidocaine 5% Patch TD SCH (10:13)
[2017-11-21] MEDS: Vancomycin 25 MG/ML PO SCH (10:14)
[2017-11-21 10:27] VITALS: BP 188/92; PULSE 100
[2017-11-21 10:33] VITALS: RESP 18; TEMP 98.3; O2SAT 98
--- NOTE | 2017-11-21 11:13 | PN ---
DATE: SUBJECTIVE: An 82-year-old white female whose discharge was held because of profuse diarrhea, stool was negative for C. diff. The patient is still on vancomycin. PHYSICAL EXAMINATION GENERAL: She still has diarrhea, has had diarrhea in the past. VITAL SIGNS: Stable. She is afebrile. Temperature is 99. CHEST: Clear to auscultation and percussion. ABDOMEN: Soft. Bowel sounds are normoactive. EXTREMITIES: No cyanosis, clubbing or edema. LABORATORY DATA: The patient's white count is normal. The patient will be discharged home on p.o. vanco, to finish an oral absorbent powder for her diarrhea and a BRAT diet. Situation is unchanged. Juan Desouza MD
--- NOTE | 2017-11-22 15:26 | DS ---
HISTORY OF PRESENT ILLNESS: She is an 82-year-old female who was transferred from [facility] to [facility] for treatment of C. diff enterocolitis, exacerbation of COPD, congestive heart failure, renal insufficiency. Patient did well with treatment for her C. diff. Her last C. diff culture was negative. She continued to have some diarrhea. Otherwise, her kidney function has returned practically to baseline. Her last laboratory data showed white count of 11.8, hemoglobin 12.8. She was transfused 2 units of blood while in the hospital. BUN and creatinine have improved to 31 and 1.0. Blood sugars are controlled. Patient did physical therapy and occupation therapy. Once, we clear for discharge, she was discharged home to continue outpatient therapy, off CARISSA and ARBs because of the renal insufficiency and to be on Questran for control of diarrhea and definitive treatment with the aid of vancomycin p.o. for treatment of C. diff enterocolitis. FINAL DISCHARGE DIAGNOSES: Clostridium difficile, pseudomembranous enterocolitis, congestive heart failure, exacerbation of chronic obstructive pulmonary disease, acute renal failure and rheumatoid arthritis. Juan Desouza MD
== END 2017-11-21 12:15 | disposition home or self-care (01) | DRG 292 ==
LOC: TRCU 15:20
PROVIDERS: ADMIT Internal Medicine; ATTEND Internal Medicine
PROC: F07Z9FZ Gait Training/Functional Ambulation Treatment using Assistive, Adaptive, Supportive or Protective Equipment (ICD-10-PCS; principal; 2017-11-13)
PROC: F08Z4FZ Home Management Treatment using Assistive, Adaptive, Supportive or Protective Equipment (ICD-10-PCS; 2017-11-14)
DX: I13.0 Hypertensive heart and chronic kidney disease with heart failure and stage 1 through stage 4 chronic kidney disease, or unspecified chronic kidney disease (principal); A04.72 Enterocolitis due to Clostridium difficile, not specified as recurrent; N17.9 Acute kidney failure, unspecified; E11.22 Type 2 diabetes mellitus with diabetic chronic kidney disease; I50.42 Chronic combined systolic (congestive) and diastolic (congestive) heart failure; J44.1 Chronic obstructive pulmonary disease with (acute) exacerbation; N39.0 Urinary tract infection, site not specified; N18.3 Chronic kidney disease, stage 3 (moderate); I27.20 Pulmonary hypertension, unspecified; I42.0 Dilated cardiomyopathy; M06.9 Rheumatoid arthritis, unspecified; I25.10 Atherosclerotic heart disease of native coronary artery without angina pectoris; E11.51 Type 2 diabetes mellitus with diabetic peripheral angiopathy without gangrene; D64.9 Anemia, unspecified; K21.9 Gastro-esophageal reflux disease without esophagitis; K44.9 Diaphragmatic hernia without obstruction or gangrene; B96.20 Unspecified Escherichia coli [E. coli] as the cause of diseases classified elsewhere; H91.90 Unspecified hearing loss, unspecified ear; Z95.5 Presence of coronary angioplasty implant and graft; Z87.891 Personal history of nicotine dependence; Z86.73 Personal history of transient ischemic attack (TIA), and cerebral infarction without residual deficits; Z87.01 Personal history of pneumonia (recurrent)